=== PATIENT | female | born 1955 | race Caucasian/White ===

== ENCOUNTER 2016-08-01 20:48 | Inpatient (IN) | payer SELFPAY ==
[~2016-08-01] VITALS: Ht 167.6 cm; Wt 68.9 kg
[~2016-08-01 20:48] MED LIST: CELE40TA PO; LAMO25 PO; ONDA4TAB7 PO; TRAZ150T75 PO
[2016-08-02] MEDS ORDERED: diphenhydrAMINE HCL 50 MG/ML VIAL IM PRN (01:00)
[2016-08-02] MEDS ORDERED: MAGNESIUM HYDROXIDE SUSP 30 ML CUP PO PRN (01:00)
[2016-08-02] MEDS: diphenhydrAMINE HCL 50 MG CAP PO PRN ×2 (01:43→10:55)
[2016-08-02] MEDS ORDERED: FLUMAZENIL 0.5 MG/5 ML VIAL IV PUSH PRN (02:45)
[2016-08-02] MEDS ORDERED: LORazepam 2 MG/ML VIAL IV PUSH PRN ×4 (02:45)
[2016-08-02] MEDS ORDERED: HALOPERIDOL LACTATE 5 MG/ML AMP IM PRN (02:45)
[2016-08-02 02:50] VITALS: BP 107/72; PULSE 80; RESP 19; TEMP 97.8; O2SAT 95
[2016-08-02] MEDS: LORazepam 2 MG TAB PO PRN ×3 (06:09→20:25)
[2016-08-02] MEDS ORDERED: NICOTINE 21 MG/24 HR PATCH T-DERMAL SCH (09:00)
[2016-08-02] MEDS: ALUMINUM/MAGNESIUM/SIMETH 30 ML CUP PO PRN ×2 (10:50→18:27)
--- NOTE | 2016-08-02 10:53 | HHI.HP ---
Provisional Diagnosis Admission Date Aug 01, 2016 at 21:10 [place]. Adjustment disorder with mixed disturbance of emotion and conduct Certification of Person's Competence To Provide Express and Informed Consent I have personally examined Anel Carcamo , a person being served at [facility] on, Aug 02, 2016 10:46. Express and informed consent means consent voluntarily given in writing, by a competent person, after sufficient explanation and disclosure of the subject matter involved to enable the person to make a knowing and willful decision without any element of force, fraud, deceit, duress, or other form of constraint or coercion. This person is 18 years of age or older, is not now known to be incompetent to consent to treatment with a guardian advocate, and does not have a health care surrogate or proxy currently making medical treatment decisions. I have found this person to be one of the following: [x] Competent to provide express and informed consent, as defined above, for voluntary admission to this facility and is competent to provide express and informed consent for treatment. He/she has the consistent capacity to make well reasoned, willful, and knowing decisions concerning his or her medical or mental health treatment. The person fully and consistently understands the purpose of the admission for examination/placement and is fully capable of personally exercising all rights assured under [place] Incompetent to provide express and informed consent to voluntary admission, and this is incompetent to provide express and informed consent to treatment. The person must be transferred to involuntary status and a petition for a guardian advocate filed with the Circuit Court. [] Refusing to provide express and informed consent to voluntary admission but is competent to provide express and informed consent for treatment. The person must be discharged or transferred to involuntary status. Form shall be completed within 24 hours of a person's arrival at the receiving facility and filed in the clinical record of each person: 1. Admitted on a voluntary basis 2. Permitted to provide express and informed consent to his/her own treatment 3. Allowed to transfer from involuntary to voluntary status 4. Prior to permitting a person to consent to his or her own treatment after having been previously found incompetent to consent to treatment. History of Present Illness Capacity: Has Capacity HPI Patient lives with her sister. According to the sister the patient is drinking too much alcohol but the patient denies this. Patient does admit to not taking her medicines for the last several months. She would like to go back on her Lamictal and Celexa and trazodone. She describes symptoms of depressed mood, anhedonia, diminished energy, social withdrawal, low self-esteem, feelings of hopelessness, difficulty sleeping and difficulty with her appetite. She has had fleeting thoughts of suicide but currently feels safe and is asking for help. She states her medicine did work in the past and she is willing to go back on it. Review of Systems ROS Limitations: Clinical Condition Except as stated in HPI: all other systems reviewed are Neg Past Psych History Psychological trauma history Denied Violence risk - others (6 mos) Minimal Violence risk - self (6 mos) Minimal Substance Abuse History Drugs/Alcohol past 12 months Reports drinking alcohol several times per week but denies having a problem with consumption or inebriation. Past Family Social History Coded Allergies: No Known Allergies (Unverified , 02/18/16) Per [facility] [phone] & [facility] [phone]. Active Scripts Trazodone 150 Mg [id number] Mg PO HS #30 TAB Ref 0 Prov:Harrison Meyer MD 05/07/16 Ondansetron Odt 4 Mg Tab4 Mg PO Q8HR #90 TAB Ref 0 Prov:Harrison Meyer MD 05/07/16 Lamotrigine (Lamictal)25 Mg Tab50 Mg PO 2 bid #120 TAB Ref 0 Prov:Harrison Meyer MD 05/07/16 Citalopram (Celexa)40 Mg Tab40 Mg PO DAILY #30 TAB Ref 0 Prov:Harrison Meyer MD 05/07/16 Current Medications Medications (Trade) Dose Ordered Sig/Esvin Route Start Time Stop Time Status Last Admin (Benadryl) 50 mg Q6H PRN PO 08/02/16 01:00 08/02/16 01:43 (Benadryl Inj) 50 mg Q6H PRN IM 08/02/16 01:00 (Tylenol) 650 mg Q4H PRN PO 08/02/16 01:00 (Milk Of Magnesia Liq) 30 ml DAILY PRN PO 08/02/16 01:00 (Mag-Al Plus Susp Liq) 30 ml Q6H PRN PO 08/02/16 01:00 (Ativan) 1 mg Q4H PRN PO 08/02/16 02:45 (Ativan Inj) 1 mg Q4H PRN IV PUSH 08/02/16 02:45 (Ativan) 2 mg Q2H PRN PO 08/02/16 02:45 08/02/16 06:09 (Ativan Inj) 2 mg Q2H PRN IV PUSH 08/02/16 02:45 (Ativan Inj) 2 mg Q1H PRN IV PUSH 08/02/16 02:45 (Ativan Inj) 2 mg Q15M PRN IV PUSH 08/02/16 02:45 (Romazicon Inj) 0.2 mg Q1M PRN IV PUSH 08/02/16 02:45 Family History Positive for mood disorder. Social History Lives with her sister in [facility]. Not currently employed. Possibly has an alcohol abuse problem. Not involved in a romantic relationship. Patient's Strengths (min. 2) Verbal and resilient. Physical Exam GENERAL: SKIN: Warm and dry. HEAD: Normocephalic. EYES: No scleral icterus. No injection or drainage. NECK: Supple, trachea midline. No JVD or lymphadenopathy. CARDIOVASCULAR: Regular rate and rhythm without murmurs, gallops, or rubs. RESPIRATORY: Breath sounds equal bilaterally. No accessory muscle use. GASTROINTESTINAL: Abdomen soft, non-tender, nondistended. MUSCULOSKELETAL: No cyanosis, or edema. BACK: Nontender without obvious deformity. No CVA tenderness. Vital Signs Vital Signs Date Time Temp Pulse Resp B/P Pulse Ox O2 Delivery O2 Flow Rate FiO2 08/02/16 02:50 97.8 80 19 107/72 95 Mental Status Examination Speech: Unremarkable Orientation: x3 Memory: Unremarkable Thought Process: Organized, Goal Directed Thought Content: Unremarkable Hallucination Type: None Attention and Concentration: Good Suicidal Ideation: Yes Previous Suicide Attempts: Yes Homicidal Ideation: No Previous Homicide Attempts: No Insight: Fair Judgement: Unrealistic Affect: Anxious Mood: Sad Motor Activity: Normal gait Assessment & Plan Problem List: (1) Adjustment disorder with mixed disturbance of emotions and conduct ICD Code: F43.25 Assessment & Plan Estimated LOS: 3 days n patient to be placed back on medications and titrated up to therapeutic doses in the next 3 days. Arthur Quiroz MD Aug 02, 2016 10:53
[2016-08-02] MEDS: LORazepam 1 MG TAB PO PRN (10:59)
[2016-08-02] MEDS: CITALOPRAM HYDROBROMIDE 20 MG TAB PO SCH (11:00)
[2016-08-02 16:54] VITALS: BP 100/70; PULSE 72; RESP 18; TEMP 98.4; O2SAT 97
[2016-08-02] MEDS: traZODone HCL 100 MG TAB PO SCH (20:25)
[2016-08-02] MEDS: lamoTRIgine 25 MG TAB PO SCH (20:25)
[2016-08-02] MEDS ORDERED: REMOVE OLD NICOTINE PATCH T-DERMAL SCH (21:00)
[2016-08-03 06:29] VITALS: BP 127/73; PULSE 72; RESP 18; TEMP 98; O2SAT 99
[2016-08-03] MEDS: ALUMINUM/MAGNESIUM/SIMETH 30 ML CUP PO PRN (06:30)
[2016-08-03] MEDS: LORazepam 1 MG TAB PO PRN ×2 (06:30→09:37)
--- NOTE | 2016-08-03 09:26 | HHI.PYPN ---
Subjective Remarks Patient continues to report significant depression, nausea and malaise. This physician believes she is still having used to owing off and back on her medication. She needs more time to get used to the medicine before we titrate the dose up. Review of Systems ROS Limitations: Clinical Condition Except as stated in HPI: all other systems reviewed are Neg Objective Alert: Yes [place]: Person, Place, Date, Situation Mood: Calm Affect: Euthymic Memory Intact: Immediate, Recent, Remote Hallucinations: Other Delusions: No Delusion Type: Other Suicidal: Ideation Homicidal: Ideation Insight/Judgement Impaired but adequate. Vitals/IOs Vital Signs Date Time Temp Pulse Resp B/P Pulse Ox O2 Delivery O2 Flow Rate FiO2 08/03/16 06:29 98.0 72 18 127/73 99 Assessment & Plan Problem List: (1) Adjustment disorder with mixed disturbance of emotions and conduct ICD Code: F43.25 Assessment & Plan Estimated LOS: 2 days plan to continue titrating the medications Celexa and Lamictal as she tolerates them. Justification for Cont. Inpt. Continued depression with suicidal ideation. Arthur Quiroz MD Aug 03, 2016 09:25
[2016-08-03] MEDS: lamoTRIgine 25 MG TAB PO SCH ×2 (09:30→21:19)
[2016-08-03] MEDS: CITALOPRAM HYDROBROMIDE 20 MG TAB PO SCH (09:30)
[2016-08-03] MEDS: LORazepam 2 MG TAB PO PRN ×2 (13:09→21:19)
[2016-08-03] MEDS: diphenhydrAMINE HCL 50 MG CAP PO PRN (17:51)
[2016-08-03 17:53] VITALS: BP 108/63; PULSE 69; RESP 18; TEMP 98.2; O2SAT 100
[2016-08-03] MEDS: traZODone HCL 100 MG TAB PO SCH (21:00)
[2016-08-04] MEDS: LORazepam 2 MG TAB PO PRN (05:24)
[2016-08-04] MEDS: ALUMINUM/MAGNESIUM/SIMETH 30 ML CUP PO PRN (05:24)
[2016-08-04 05:54] VITALS: BP 115/78; PULSE 80; RESP 18; TEMP 97.4; O2SAT 98
[2016-08-04] MEDS: lamoTRIgine 25 MG TAB PO SCH ×2 (09:32→20:25)
[2016-08-04] MEDS: CITALOPRAM HYDROBROMIDE 20 MG TAB PO SCH (09:32)
[2016-08-04] MEDS: diphenhydrAMINE HCL 50 MG CAP PO PRN (11:18)
--- NOTE | 2016-08-04 12:30 | HHI.PYPN ---
Subjective Remarks Patient continues to report symptoms of depression with suicidality. She has no place to go, according to reports, which makes her feel more hopeless and helpless and depressed. This physician discussed social work services and placing the patient back on her medications. She is willing to sign voluntarily. Therefore her medicines will be increased to their previous standards. Anticipated discharge is this Tuesday. Review of Systems ROS Limitations: Clinical Condition Except as stated in HPI: all other systems reviewed are Neg Objective Alert: Yes [place]: Person, Place, Date, Situation Mood: Anxious, Calm, Depressed Affect: Restricted Memory Intact: Immediate, Recent, Remote Hallucinations: Other Delusions: No Delusion Type: Other Suicidal: Ideation Homicidal: Ideation Insight/Judgement Impaired but adequate. Vitals/IOs Vital Signs Date Time Temp Pulse Resp B/P Pulse Ox O2 Delivery O2 Flow Rate FiO2 08/04/16 05:54 97.4 80 18 115/78 98 Assessment & Plan Problem List: (1) Adjustment disorder with mixed disturbance of emotions and conduct ICD Code: F43.25 Assessment & Plan Estimated LOS: 2 days patient will now be placed on 50 mg of Lamictal twice a day and the full dose of Celexa. Social work to be involved for placement issues. If patient responds according to medication changes, she will be discharged on Tuesday. Justification for Cont. Inpt. Depressed, suicidal and unable to care for self. Arthur Quiroz MD Aug 04, 2016 12:30
[2016-08-04] MEDS: LORazepam 1 MG TAB PO PRN ×2 (13:15→18:26)
[2016-08-04 16:51] VITALS: BP 118/79; PULSE 73; RESP 18; TEMP 97.7; O2SAT 100
[2016-08-04] MEDS: traZODone HCL 100 MG TAB PO SCH (20:25)
[2016-08-05] MEDS: LORazepam 2 MG TAB PO PRN (02:15)
[2016-08-05 05:26] VITALS: BP 151/86; PULSE 61; RESP 16; TEMP 97.7; O2SAT 96
[2016-08-05] MEDS: lamoTRIgine 25 MG TAB PO SCH ×2 (08:22→20:33)
[2016-08-05] MEDS: CITALOPRAM HYDROBROMIDE 20 MG TAB PO SCH (08:22)
--- NOTE | 2016-08-05 11:01 | HHI.PYPN ---
Subjective Remarks Continues to demonstrate a markedly depressed mood, anhedonia, markedly diminished energy and social withdrawal. Expresses suicidal ideation as well. Review of Systems ROS Limitations: Clinical Condition Except as stated in HPI: all other systems reviewed are Neg Objective Alert: Yes [place]: Person, Place, Date, Situation Mood: Anxious, Depressed Affect: Restricted Memory Intact: Immediate, Recent, Remote Hallucinations: Other Delusions: No Delusion Type: Other Suicidal: Ideation Homicidal: Ideation Insight/Judgement Impaired. Vitals/IOs Vital Signs Date Time Temp Pulse Resp B/P Pulse Ox O2 Delivery O2 Flow Rate FiO2 08/05/16 05:26 97.7 61 16 151/86 96 Intake and Output 08/04/16 08/04/16 08/05/16 08:00 16:00 00:00 Intake Total 360 ml Balance 360 ml Assessment & Plan Problem List: (1) Adjustment disorder with mixed disturbance of emotions and conduct ICD Code: F43.25 Assessment & Plan Estimated LOS: 2 days days patient has not been responding to medication as prescribed. This physician will look to titrate antidepressant therapies upward. Anticipate discharge over the or Tuesday. Justification for Cont. Inpt. Suicidal ideation and unable to care for self. Arthur Quiroz MD Aug 05, 2016 11:01
[2016-08-05] MEDS: diphenhydrAMINE HCL 50 MG CAP PO PRN (11:27)
[2016-08-05] MEDS: traZODone HCL 100 MG TAB PO SCH (20:33)
[2016-08-05 21:43] VITALS: BP 111/76; PULSE 65; RESP 18; TEMP 98; O2SAT 97
[2016-08-06 06:14] VITALS: BP 117/70; PULSE 69; RESP 20; TEMP 97.7; O2SAT 98
[2016-08-06] MEDS: lamoTRIgine 25 MG TAB PO SCH ×2 (08:41→20:30)
[2016-08-06] MEDS: CITALOPRAM HYDROBROMIDE 20 MG TAB PO SCH (08:41)
--- NOTE | 2016-08-06 13:55 | HHI.PYPN ---
Subjective Remarks Patient seen and examined in coverage for Dr. Quiroz. Chart reviewed. Case discussed with nursing staff. On my examination today, patient tells me that she feels like recent medication adjustments are kicking in and her mood is improving. Denies suicidality. No evidence of psychosis. Denies side effects from medications. Review of Systems Except as stated in HPI: all other systems reviewed are Neg Objective Alert: Yes [place]: Person, Place, Date, Situation Mood: Depressed (improving per patient report) Affect: Other (fairly full and reactive) Memory Intact: Comment (intact on clinical exam) Hallucinations: Other (no AVH) Delusions: No Delusion Type: Other (no evident delusions) Suicidal: Ideation (no suicidal ideation) Homicidal: Ideation (no homicidal ideation) Insight/Judgement Fair Remarks No motor abnormalities noted. No signs of any withdrawal noted. Thought process linear. Grooming and hygiene are good. Labs No laboratories on file within our system from this admission. Vitals/IOs Vital Signs Date Time Temp Pulse Resp B/P Pulse Ox O2 Delivery O2 Flow Rate FiO2 08/06/16 06:14 97.7 69 20 117/70 98 Assessment & Plan Problem List: (1) Adjustment disorder with mixed disturbance of emotions and conduct ICD Code: F43.25 Assessment & Plan Continue Lamictal, Celexa and trazodone as ordered. Continue other medications and care as ordered. Continue to monitor on the inpatient unit. Justification for Cont. Inpt. Monitoring for impairments in safety. Discharge Planning Pending psychiatric stabilization. Per Dr. Quiroz. Request HC Surrog/Guard Advoc?: No Miguel Acosta MD Aug 06, 2016 13:55
[2016-08-06] MEDS: LORazepam 1 MG TAB PO PRN (15:26)
[2016-08-06 19:20] VITALS: BP 105/70; PULSE 66; RESP 19; TEMP 97.4; O2SAT 98
[2016-08-06] MEDS: traZODone HCL 100 MG TAB PO SCH (20:30)
[2016-08-06] MEDS: LORazepam 2 MG TAB PO PRN (20:30)
[2016-08-07] MEDS: LORazepam 2 MG TAB PO PRN ×3 (01:03→21:43)
[2016-08-07] MEDS: ALUMINUM/MAGNESIUM/SIMETH 30 ML CUP PO PRN (01:03)
[2016-08-07 06:20] VITALS: BP 122/72; PULSE 74; RESP 17; TEMP 98.3; O2SAT 97
[2016-08-07] MEDS: LORazepam 1 MG TAB PO PRN ×2 (06:23→10:17)
[2016-08-07] MEDS: lamoTRIgine 25 MG TAB PO SCH ×2 (09:33→21:44)
[2016-08-07] MEDS: CITALOPRAM HYDROBROMIDE 20 MG TAB PO SCH (09:33)
[2016-08-07] MEDS: ACETAMINOPHEN 325 MG TAB PO PRN (14:06)
--- NOTE | 2016-08-07 15:13 | HHI.PYPN ---
Subjective Remarks Pt seen and discussed with staff. No SI/HI. Pt has been anxious but remains free from SI/HI. Pt has been having increasing abdominal pain which she rates 10/10. Pt could be heard on other unit crying. Seen and examined with RN Soledad present. Abdomen is tender to palpation in both lower quadrants, with greater tenderness on LLQ. Pt vomited at 1405. NO BM today. Most recent vital signs 168 /83, P 68, R 18, SP02 98%. Consult placed and called directly to [facility]. Review of Systems Gastrointestinal: COMPLAINS OF: Abdominal pain, Vomiting Psychiatric: COMPLAINS OF: Anxiety Objective Alert: Yes [place]: Person, Place, Date, Situation Mood: Depressed (improving per patient report) Affect: Other (fairly full and reactive) Memory Intact: Comment (intact on clinical exam) Hallucinations: Other (no AVH) Delusions: No Delusion Type: Other (no evident delusions) Suicidal: Ideation (no suicidal ideation) Homicidal: Ideation (no homicidal ideation) Insight/Judgement poor Vitals/IOs Vital Signs Date Time Temp Pulse Resp B/P Pulse Ox O2 Delivery O2 Flow Rate FiO2 08/07/16 06:20 98.3 74 17 122/72 97 Assessment & Plan Problem List: (1) Adjustment disorder with mixed disturbance of emotions and conduct ICD Code: F43.25 Assessment & Plan Continue current tx plan. Hospitalist consulted for abdominal pain. Justification for Cont. Inpt. complicating medical condition Request HC Surrog/Guard Advoc?: Chichi Mcintosh MD Aug 07, 2016 15:13
[2016-08-07] MEDS ORDERED: MORPHINE SULFATE 4 MG/ML INJ IM ONE (15:15)
--- NOTE | 2016-08-07 15:36 | RADRPT ---
EXAM DATE/TIME: 08/07/2016 15:06 [facility] COMPARISON: No previous studies available for comparison. INDICATIONS : Abdominal pain in lower left quadrant. MEDICAL HISTORY : None. SURGICAL HISTORY : None. ENCOUNTER: Initial ACUITY: 1 day PAIN SCORE: 10/10 LOCATION: Abdomen FINDINGS: Supine view of the abdomen was performed. The abdominal bowel gas pattern is normal. No abnormal ma sses, calcifications, or organomegaly is seen. The visualized lower lungs are clear. The osseous st ructures are unremarkable. CONCLUSION: Benign abdomen. Cameron Gross MD on August 07, 2016 at 15:33 Board Certified Radiologist. This report was verified electronically.
--- NOTE | 2016-08-07 15:37 | PD.CONS ---
HPI Service [facility] Consult Requested By Dr. Martini Reason for Consult Abdominal pain Primary Care Physician No Primary Care Physician Diagnoses: History of Present Illness This is a 61-year-old female who is currently admitted to the psychiatry floor because of depression. Stat consult was requested because of abdominal pain. Case discussed with patient's psychiatrist. Patient has history of ovarian mass. Patient states she has acute onset of severe sharp left lower quadrant pain without radiation associated with nausea and vomiting 2. She feels her mass has twisted. No fever, UTI symptoms, constipation and diarrhea. History of appendectomy and hysterectomy. Denies abdominal distention. Review of Systems Constitutional: DENIES: Diaphoretic episodes, Fatigue, Fever, Weight gain, Weight loss, Chills, Dizziness, Change in appetite, Night Sweats Endocrine: DENIES: Heat/cold intolerance, Polydipsia, Polyuria, Polyphagia Eyes: DENIES: Blurred vision, Diplopia, Vision loss, Photosensitivity Ears, nose, mouth, throat: DENIES: Tinnitus, Vertigo, Throat pain, Hoarseness, Epistaxis, Odynophagia Respiratory: DENIES: Cough, Wheezing, Hemoptysis, Sputum production, Shortness of breath Cardiovascular: DENIES: Chest pain, Palpitations, Syncope, Dyspnea on Exertion , PND, Lower Extremity Edema, Orthopnea, Claudication Gastrointestinal: COMPLAINS OF: Abdominal pain, DENIES: Black stools, Bloody stools, Constipation, Diarrhea, Nausea, Vomiting, Difficulty Swallowing, Anorexia Genitourinary: DENIES: Urinary frequency, Urinary incontinence, Urgency, Hematuria, Dysuria, Nocturia, Vaginal discharge Integumentary: DENIES: Rash Neurologic: DENIES: Headache, Localized weakness, Seizures, Tremor, Poor Balance Psychiatric: COMPLAINS OF: Depression, DENIES: Anxiety, Confusion, Hallucinations, Agitation, Suicidal Ideation, Homicidal Ideation, Delusions Past Family Social History Allergies: Coded Allergies: No Known Allergies (Unverified , 02/18/16) Per [facility] [phone] & [facility] [phone]. Past Medical History As previously mentioned Past Surgical History As previously mentioned Reported Medications Trazodone 150 Mg Sag084 Mg PO HS #30 TAB Ref 0 Prov:Harrison Meyer MD 05/07/16 Ondansetron Odt 4 Mg Tab4 Mg PO Q8HR #90 TAB Ref 0 Prov:Harrison Meyer MD 05/07/16 Lamotrigine (Lamictal)25 Mg Tab50 Mg PO 2 bid #120 TAB Ref 0 Prov:Harrison Meyer MD 05/07/16 Citalopram (Celexa)40 Mg Tab40 Mg PO DAILY #30 TAB Ref 0 Prov:Harrison Meyer MD 05/07/16 Family History No history of cancer Social History Does not drink. She smokes 3 cigarettes a day Physical Exam Vital Signs Vital Signs Date Time Temp Pulse Resp B/P Pulse Ox O2 Delivery O2 Flow Rate FiO2 08/07/16 06:20 98.3 74 17 122/72 97 08/06/16 19:20 97.4 66 19 105/70 98 Physical Exam GENERAL: This is a well-nourished, well-developed patient, in distress due to pain SKIN: No rashes, ecchymoses or lesions. Cool and dry. HEAD: Atraumatic. Normocephalic. No temporal or scalp tenderness. EYES: Pupils equal round and reactive. Extraocular motions intact. No scleral icterus. No injection or drainage. ENT: Nose without bleeding, purulent drainage or septal hematoma. Throat without erythema, tonsillar hypertrophy or exudate. Uvula midline. Airway patent. NECK: Trachea midline. No JVD or lymphadenopathy. Supple, nontender, no meningeal signs. CARDIOVASCULAR: Regular rate and rhythm without murmurs, gallops, or rubs. RESPIRATORY: Clear to auscultation. Breath sounds equal bilaterally. No wheezes , rales, or rhonchi. GASTROINTESTINAL: Abdomen soft, nondistended. No guarding. Tender left lower quadrant. Left CVA tenderness MUSCULOSKELETAL: Extremities without clubbing, cyanosis, or edema. No joint tenderness, effusion, or edema noted. No calf tenderness. Negative Homans sign bilaterally. NEUROLOGICAL: Awake and alert. Cranial nerves II through XII intact. Motor and sensory grossly within normal limits. Five out of 5 muscle strength in all muscle groups. Normal speech. Assessment and Plan Problem List: (1) Abdominal pain ICD Code: R10.9 Status: Acute (2) Ovarian mass, left ICD Code: N83.9 Status: Chronic (3) Adjustment disorder with mixed disturbance of emotions and conduct ICD Code: F43.25 Status: Acute Assessment and Plan This is a 61-year-old female who is currently admitted to the psychiatry floor because of depression. Stat consult was requested because of abdominal pain. Acute left lower quadrant abdominal pain associated with nausea and vomiting with history of ovarian mass. No fever, UTI symptoms, constipation and diarrhea. History of appendectomy and hysterectomy. Denies abdominal distention. Etiology to be determined. Stat CBC, CMP, urinalysis, KUB and abdominal and pelvic CT. Morphine IM for pain control. Nothing by mouth and start IV fluids DVT prophylaxis with SCD and early ambulation. Discussed Condition With Patient and psychiatry staff Bryan Olivas MD Aug 07, 2016 15:37
[2016-08-07 15:40] LABS: AUTOMATED NEUTROPHIL # 7.8 TH/MM3 (1.8-7.7); BASOPHIL # 0.2 TH/MM3 (0-0.2); BASOPHIL % 1.3 % (0.0-2.0); EOSINOPHIL % 0.2 % (0.0-4.0); HEMATOCRIT 42.4 % (35.0-46.0); HEMO FLAGS DIFF FINAL; LYMPH % 31.2 % (9.0-44.0); LYMPHOCYTE # 4.3 TH/MM3 (1.0-4.8); MEAN CELL VOLUME 98.1 FL (80.0-100.0); MEAN CORPUSCULAR HEMOGLOBIN 32.3 PG (27.0-34.0); MONO % 9.8 % (0.0-8.0); NEUT % 57.5 % (16.0-70.0); PLATELET COUNT 191 TH/MM3 (150-450); RED BLOOD COUNT 4.33 MIL/MM3 (4.00-5.30); RED CELL DISTRIBUTION WIDTH 12.9 % (11.6-17.2); WHITE BLOOD COUNT 13.7 TH/MM3 (4.0-11.0)
[2016-08-07] MEDS ORDERED: DIATRIZOATE MEGLUM/DIATRIZOATE SOD 9 ML CUP PO ONE (16:00)
[2016-08-07 16:10] LABS: ALT (GPT) 15 U/L (10-53); ANION GAP 11 MEQ/L (5-15); AST (GOT) 13 U/L (15-37); BICARBONATE 25.6 MEQ/L (21.0-32.0); BLOOD UREA NITROGEN 20 MG/DL (7-18); CHLORIDE 99 MEQ/L (98-107); GLOMERULAR FILTRATION RATE 68 ML/MIN (>89); MAGNESIUM 2.2 MG/DL (1.5-2.5); POTASSIUM 3.6 MEQ/L (3.5-5.1); SODIUM (NA) 136 MEQ/L (136-145)
[2016-08-07 16:13] LABS: ALKALINE PHOSPHATASE 80 U/L (45-117); TOTAL BILIRUBIN ADULT 0.2 MG/DL (0.2-1.0)
[2016-08-07] MEDS ORDERED: NS + KCL 20 MEQ INJ 1,000 ML IV PRN (16:30)
[2016-08-07] MEDS ORDERED: LACTULOSE SYRUP 20 GM/30 ML CUP PO PRN (16:45)
[2016-08-07] MEDS ORDERED: BISACODYL 10 MG SUPP RECTAL PRN (16:45)
[2016-08-07] MEDS ORDERED: IOHEXOL 350 MG/ML 10 ML VIAL (for RAD DIAG) IV ONE (20:37)
--- NOTE | 2016-08-07 20:45 | RADRPT ---
EXAM DATE/TIME: 08/07/2016 20:28 [facility] COMPARISON: No previous studies available for comparison. INDICATIONS : Right lower quadrant pain. IV CONTRAST: 96 cc Omnipaque 350 (iohexol) IV ORAL CONTRAST: Prescribed oral contrast ingested. RADIATION DOSE: 10.57 CTDIvol (mGy) MEDICAL HISTORY : ulcer and ovarian cyst SURGICAL HISTORY : Appendectomy. section. ENCOUNTER: Initial ACUITY: 1 day PAIN SCALE: 10/10 LOCATION: Right lower quadrant TECHNIQUE: Volumetric scanning of the abdomen and pelvis was performed. Using automated exposure control and ad justment of the mA and/or kV according to patient size, radiation dose was kept as low as reasonably achievable to obtain optimal diagnostic quality images. FINDINGS: LOWER LUNGS: The visualized lower lungs are clear. Small hiatus. LIVER: Homogeneous density without lesion. There is no dilation of the biliary tree. No calcified gallston es. SPLEEN: Normal size without lesion. PANCREAS: Within normal limits. KIDNEYS: Normal in size and shape. There is no mass, stone or hydronephrosis. ADRENAL GLANDS: Within normal limits. VASCULAR: There is no aortic aneurysm. BOWEL/MESENTERY: The stomach, small bowel, and colon demonstrate no acute abnormality. There is no free intraperitone al air or fluid. ABDOMINAL WALL: Within normal limits. RETROPERITONEUM: There is no lymphadenopathy. BLADDER: No wall thickening or mass. REPRODUCTIVE: There is a smooth margin heterogeneous density mass in the left posterior pelvis posterior and to the left of the uterus which measures 5.7 x 5.6 x 3.4 cm. There appears to be several septi within and a central area of enhancing soft tissue which measures up to 1.4 cm. The location suggests that this is left adnexal, probably ovarian in origin. No evidence of free fluid. INGUINAL: There is no lymphadenopathy or hernia. MUSCULOSKELETAL: Within normal limits for patient age. CONCLUSION: Mixed cystic and solid mass in the posterior left adnexa measuring 5.6 cm, probably ovarian arch and. No evidence of deep pelvic adenopathy; no evidence of free fluid. Cameron Gross MD on August 07, 2016 at 20:41 Board Certified Radiologist. This report was verified electronically.
[2016-08-07] MEDS: MORPHINE SULFATE 4 MG/ML INJ IM PRN (21:00)
[2016-08-07 21:29] VITALS: BP 168/83; PULSE 68; RESP 18; TEMP 98.1
[2016-08-07] MEDS: DOCUSATE SODIUM 50 MG/SENNA 8.6 MG TAB PO SCH (21:44)
[2016-08-07] MEDS: traZODone HCL 100 MG TAB PO SCH (21:44)
[2016-08-08] MEDS: MORPHINE SULFATE 4 MG/ML INJ IM PRN (01:34)
[2016-08-08] MEDS: ACETAMINOPHEN 325 MG TAB PO PRN (04:57)
[2016-08-08 06:00] VITALS: BP 99/58; PULSE 80; RESP 18; TEMP 97.4; O2SAT 97
[2016-08-08 07:19] LABS: AUTOMATED NEUTROPHIL # 5.7 TH/MM3 (1.8-7.7); BASOPHIL # 0.1 TH/MM3 (0-0.2); BASOPHIL % 0.6 % (0.0-2.0); EOSINOPHIL % 0.2 % (0.0-4.0); HEMO FLAGS DIFF FINAL; LYMPH % 25.9 % (9.0-44.0); LYMPHOCYTE # 2.4 TH/MM3 (1.0-4.8); MEAN CELL VOLUME 98.4 FL (80.0-100.0); MEAN CORPUSCULAR HEMOGLOBIN 33.4 PG (27.0-34.0); MONO % 11.9 % (0.0-8.0); NEUT % 61.4 % (16.0-70.0); PLATELET COUNT 169 TH/MM3 (150-450); RED BLOOD COUNT 4.06 MIL/MM3 (4.00-5.30); RED CELL DISTRIBUTION WIDTH 13.1 % (11.6-17.2); WHITE BLOOD COUNT 9.4 TH/MM3 (4.0-11.0)
[2016-08-08 07:42] LABS: MAGNESIUM 2.8 MG/DL (1.5-2.5)
[2016-08-08] MEDS ORDERED: ONDANSETRON ODT 4 MG TAB PO PRN (09:00)
[2016-08-08] MEDS: DOCUSATE SODIUM 50 MG/SENNA 8.6 MG TAB PO SCH ×2 (09:17→21:38)
[2016-08-08] MEDS: lamoTRIgine 25 MG TAB PO SCH ×2 (09:18→21:39)
[2016-08-08] MEDS: CITALOPRAM HYDROBROMIDE 20 MG TAB PO SCH (09:18)
[2016-08-08] MEDS: POLYETHYLENE GLYCOL 17 GM PKG PO SCH (09:18)
[2016-08-08] MEDS: ACETAMINOPHEN/HYDROcodone 325 MG/5 MG TAB PO PRN ×3 (11:56→22:25)
--- NOTE | 2016-08-08 15:05 | HHI.PR ---
Subjective Remarks Follow-up abdominal pain. Improved abdominal pain. Known history of left ovarian mass to see [employer] oncology Dr. Galvan on August 13. Counseled regarding narcotics I will provide pain management for the next 2 days. Discussed with RN Objective Vitals Vital Signs Date Time Temp Pulse Resp B/P Pulse Ox O2 Delivery O2 Flow Rate FiO2 08/08/16 06:00 97.4 80 18 99/58 97 08/07/16 21:29 98.1 68 18 168/83 Result Diagram: 08/08/16 0633 08/08/16 0633 Imaging Last Impressions Abdomen/Pelvis CT 08/07/16 0000 Signed Impressions: Service Date/Time: Sunday, August 07, 2016 20:28 - CONCLUSION: Mixed cystic and solid mass in the posterior left adnexa measuring 5.6 cm, probably ovarian arch and. No evidence of deep pelvic adenopathy; no evidence of free fluid. Cameron Gross MD Abdomen X-Ray 08/07/16 0000 Signed Impressions: Service Date/Time: Sunday, August 07, 2016 15:06 - CONCLUSION: Benign abdomen. Cameron Gross MD Objective Remarks GENERAL: This is a well-nourished, well-developed patient, in no distress SKIN: No rashes, ecchymoses or lesions. Cool and dry. HEAD: Atraumatic. Normocephalic. No temporal or scalp tenderness. EYES: Pupils equal round and reactive. Extraocular motions intact. No scleral icterus. No injection or drainage. ENT: Nose without bleeding, purulent drainage or septal hematoma. Throat without erythema, tonsillar hypertrophy or exudate. Uvula midline. Airway patent. NECK: Trachea midline. No JVD or lymphadenopathy. Supple, nontender, no meningeal signs. CARDIOVASCULAR: Regular rate and rhythm without murmurs, gallops, or rubs. RESPIRATORY: Clear to auscultation. Breath sounds equal bilaterally. No wheezes , rales, or rhonchi. GASTROINTESTINAL: Abdomen soft, nondistended. No guarding. Tender left lower quadrant. Left CVA tenderness MUSCULOSKELETAL: Extremities without clubbing, cyanosis, or edema. No joint tenderness, effusion, or edema noted. No calf tenderness. Negative Homans sign bilaterally. NEUROLOGICAL: Awake and alert. Cranial nerves II through XII intact. Motor and sensory grossly within normal limits. Five out of 5 muscle strength in all muscle groups. Normal speech. A/P Problem List: (1) Abdominal pain ICD Code: R10.9 Status: Acute (2) Ovarian mass, left ICD Code: N83.9 Status: Chronic (3) Adjustment disorder with mixed disturbance of emotions and conduct ICD Code: F43.25 Status: Acute Assessment and Plan This is a 61-year-old female who is currently admitted to the psychiatry floor because of depression. Stat consult was requested because of abdominal pain. Acute left lower quadrant abdominal pain associated with nausea and vomiting with history of ovarian mass as seen on CT. No fever, UTI symptoms, constipation and diarrhea. History of appendectomy and hysterectomy. Denies abdominal distention. Improved. Advance diet, start Lortab and continue Morphine IM for breakthrough pain. DVT prophylaxis with SCD and early ambulation. Discharge Planning The patient continues to be stable, we'll sign off tomorrow Bryan Olivas MD Aug 08, 2016 15:05
[2016-08-08 17:45] VITALS: BP 100/64; PULSE 84; RESP 18; TEMP 97; O2SAT 98
--- NOTE | 2016-08-08 19:21 | HHI.PYPN ---
Subjective Remarks Pt seen and discussed with staff. Pt reports mood is much improved and she denies SI/HI. She is tolerating medications without side effects. She has been resting in room for most of the day. She reports some mild anxiety but reports that overall she is doing well. No SI/HI Objective Alert: Yes [place]: Person, Place, Date, Situation Mood: Calm Affect: Restricted Memory Intact: Comment (intact on clinical exam) Hallucinations: Other (no AVH) Delusions: No Delusion Type: Other (no evident delusions) Suicidal: Ideation (no suicidal ideation) Homicidal: Ideation (no homicidal ideation) Insight/Judgement fair Labs Test 08/08/16 06:33 White Blood Count 9.4 TH/MM3 Red Blood Count 4.06 MIL/MM3 Hemoglobin 13.6 GM/DL Hematocrit 40.0 % Mean Corpuscular Volume 98.4 FL Mean Corpuscular Hemoglobin 33.4 PG Mean Corpuscular Hemoglobin 34.0 % Concent Red Cell Distribution Width 13.1 % Platelet Count 169 TH/MM3 Mean Platelet Volume 9.8 FL Neutrophils (%) (Auto) 61.4 % Lymphocytes (%) (Auto) 25.9 % Monocytes (%) (Auto) 11.9 % Eosinophils (%) (Auto) 0.2 % Basophils (%) (Auto) 0.6 % Neutrophils # (Auto) 5.7 TH/MM3 Lymphocytes # (Auto) 2.4 TH/MM3 Monocytes # (Auto) 1.1 TH/MM3 Eosinophils # (Auto) 0.0 TH/MM3 Basophils # (Auto) 0.1 TH/MM3 CBC Comment DIFF FINAL Differential Comment Sodium Level 138 MEQ/L Potassium Level 4.0 MEQ/L Chloride Level 102 MEQ/L Carbon Dioxide Level 29.0 MEQ/L Anion Gap 7 MEQ/L Blood Urea Nitrogen 11 MG/DL Creatinine 0.73 MG/DL Estimat Glomerular Filtration 81 ML/MIN Rate Random Glucose 93 MG/DL Calcium Level 9.2 MG/DL Magnesium Level 2.8 MG/DL Vitals/IOs Vital Signs Date Time Temp Pulse Resp B/P Pulse Ox O2 Delivery O2 Flow Rate FiO2 08/08/16 17:45 97.0 84 18 100/64 98 Assessment & Plan Problem List: (1) Adjustment disorder with mixed disturbance of emotions and conduct ICD Code: F43.25 Assessment & Plan Pt improving. Continue current tx plan. Estimated LOS: days Justification for Cont. Inpt. complicating medical condition Request HC Surrog/Guard Advoc?: No Chichi Martini MD Aug 08, 2016 19:21
[2016-08-08] MEDS: traZODone HCL 100 MG TAB PO SCH (21:39)
[2016-08-08] MEDS: LORazepam 2 MG TAB PO PRN (21:39)
[2016-08-08] MEDS: ALUMINUM/MAGNESIUM/SIMETH 30 ML CUP PO PRN (21:39)
[2016-08-09] MEDS: ACETAMINOPHEN/HYDROcodone 325 MG/5 MG TAB PO PRN ×4 (04:19→17:18)
[2016-08-09 06:05] VITALS: BP 98/60; PULSE 65; RESP 17; TEMP 97.5; O2SAT 93
[2016-08-09] MEDS: lamoTRIgine 25 MG TAB PO SCH (08:57)
[2016-08-09] MEDS: POLYETHYLENE GLYCOL 17 GM PKG PO SCH (08:57)
[2016-08-09] MEDS: CITALOPRAM HYDROBROMIDE 20 MG TAB PO SCH (08:57)
[2016-08-09] MEDS: DOCUSATE SODIUM 50 MG/SENNA 8.6 MG TAB PO SCH (08:58)
--- NOTE | 2016-08-09 14:43 | HHI.DS ---
Psychiatry Discharge Summary Inpatient Psychiatric care?: Yes Advance Directive: Yes Mental Health AdvanceDirective: No Health Care Proxy: [place] and Admission Admission Date Aug 01, 2016 at 21:10 Admission Diagnosis: (1) Adjustment disorder with mixed disturbance of emotions and conduct ICD Code: F43.25 Brief History Patient lives with her sister. According to the sister the patient is drinking too much alcohol but the patient denies this. Patient does admit to not taking her medicines for the last several months. She would like to go back on her Lamictal and Celexa and trazodone. She describes symptoms of depressed mood, anhedonia, diminished energy, social withdrawal, low self-esteem, feelings of hopelessness, difficulty sleeping and difficulty with her appetite. She has had fleeting thoughts of suicide but currently feels safe and is asking for help. She states her medicine did work in the past and she is willing to go back on it. Tobacco Use In Past 30 Days: 4 or Less Cigarettes/Day Alcohol Use: 2-4 Times Per Month Hospital Course The patient participated actively in individual and group therapies. No procedures were performed. She was started back on her psychotropic medications. At the time of discharge she was calm and pleasant and cooperative with no suicidal or homicidal ideation, plan or intention. Her cognition was intact and there was no evidence of psychotic thinking. Results Blood Pressure 98 / 60 Vital Signs Date Time Temp Pulse Resp B/P Pulse Ox O2 Delivery O2 Flow Rate FiO2 08/09/16 06:05 97.5 65 17 98/60 93 Laboratory Tests Test 08/07/16 08/08/16 15:21 06:33 White Blood Count 13.7 TH/MM3 (4.0-11.0) Monocytes (%) (Auto) 9.8 % (0.0-8.0) 11.9 % (0.0-8.0) Neutrophils # (Auto) 7.8 TH/MM3 (1.8-7.7) Monocytes # (Auto) 1.3 TH/MM3 1.1 TH/MM3 (0-0.9) (0-0.9) Blood Urea Nitrogen 20 MG/DL (7-18) Estimat Glomerular Filtration 68 ML/MIN (>89) 81 ML/MIN (>89) Rate Aspartate Amino Transf 13 U/L (15-37) (AST/SGOT) Magnesium Level 2.8 MG/DL (1.5-2.5) Summary of Procedures None Imaging Last Impressions Abdomen/Pelvis CT 08/07/16 0000 Signed Impressions: Service Date/Time: Sunday, August 07, 2016 20:28 - CONCLUSION: Mixed cystic and solid mass in the posterior left adnexa measuring 5.6 cm, probably ovarian arch and. No evidence of deep pelvic adenopathy; no evidence of free fluid. Cameron Gross MD Abdomen X-Ray 08/07/16 0000 Signed Impressions: Service Date/Time: Sunday, August 07, 2016 15:06 - CONCLUSION: Benign abdomen. Cameron Gross MD Pending results at discharge: No Medications # of Antipsychotic meds at D/C: 1 Appropriate >1 Antipsych meds?: 1 Approp Antipsych med options 1 - Minimum of three failed multiple trials of monotherapy. 2 - Documented plan to taper to monotherapy due to previous use of multiple meds OR cross-taper in progress at D/C. 3 - Documentation of augmentation of Clozapine. 4 - Justification other than those listed in allowable values 1-3, document here : Discharge Discharge Date: Aug 09, 2016 Discharge Diagnosis: (1) Adjustment disorder with mixed disturbance of emotions and conduct ICD Code: F43.25 Mental Status Exam at Disch At the time of discharge the patient had no suicidal or homicidal ideation, plan or intention. She showed no evidence of psychotic thinking and her cognition was completely intact. She was calm and pleasant and cooperative with adequate insight and judgment. She was verbally verónica for safety as well. Pt Condition on Discharge: Stable Discharge Disposition: Discharge Home Discharge Instructions Diet Instructions: As Tolerated, No Restrictions Activities you can perform: Regular-No Restrictions Scheduled Appointment: Leonardo Kenney Appointment Date: Aug 12, 2016 Appointment Time: 07:30 am Discharge Time <= 30 minutes Discharge/Advance Care Plan Health Problems: (1) Adjustment disorder with mixed disturbance of emotions and conduct Goals to promote your health * To prevent worsening of your condition and complications * To maintain your health at the optimal level Directions to meet your goals Take your medications as prescribed Follow your dietary instruction Follow activity as directed Keep your appointments as scheduled Take your immunizations and boosters as scheduled If your symptoms worsen call your PCP, if no PCP go to Urgent Care Center or Emergency Room For 29/11 questions related to your inpatient stay or results of tests pending at discharge, please contact Dr. Arthur Quiroz at Smoking is Dangerous to Your Health. Avoid second hand smoking Arthur Quiroz MD Aug 09, 2016 14:43
[2016-08-09] MEDS ORDERED: TRAZ50TA12 PO (14:46)
[2016-08-09] MEDS ORDERED: POLY17S PO (14:46)
[2016-08-09] MEDS ORDERED: LAMO25 PO (14:46)
[2016-08-09] MEDS ORDERED: CELE20TA PO (14:46)
[2016-08-09 17:49] VITALS: BP 89/49; PULSE 67; RESP 17; TEMP 96.8; O2SAT 95
== END 2016-08-09 18:50 | disposition home or self-care (01) | DRG 882 ==
LOC: H260 21:10
PROVIDERS: ADMIT Psychiatry & Neurology Psychiatry; ATTEND Psychiatry & Neurology Psychiatry
DX: F43.25 Adjustment disorder with mixed disturbance of emotions and conduct (principal); R45.851 Suicidal ideations; F32.9 Major depressive disorder, single episode, unspecified; F41.8 Other specified anxiety disorders; F17.210 Nicotine dependence, cigarettes, uncomplicated; N83.9 Noninflammatory disorder of ovary, fallopian tube and broad ligament, unspecified; Z90.49 Acquired absence of other specified parts of digestive tract
CPT/HCPCS: 74000; 74177; 80048; 80053; 83735; 85025; J2270; Q0163; Q9963; Q9967

== ENCOUNTER 2016-08-16 13:35 | Emergency (ER) | payer OTHER ==
[~2016-08-16] VITALS: Ht 167.6 cm; Wt 67.0 kg
[~2016-08-16 13:35] MED LIST changes: +CELE20TA PO; +POLY17S PO; +TRAZ50TA12 PO
[2016-08-16 13:37] VITALS: BP 155/60; PULSE 94; RESP 24; TEMP 98.3; O2SAT 98
[2016-08-16 13:55] VITALS: RESP 19
[2016-08-16] MEDS ORDERED: LAMO25 PO ×2 (14:43)
[2016-08-16] MEDS ORDERED: CLON1 PO (14:43)
[2016-08-16] MEDS ORDERED: VIST25CA PO (14:43)
--- NOTE | 2016-08-16 14:56 | PD ---
HPI Chief Complaint: Abdominal Pain Time Seen by Provider: 14:22 Travel History International Travel<30 days: No Contact w/Intl Traveler<30days: No Traveled to known affect area: No History of Present Illness HPI 61-year-old female here with complaint of pelvic pain. Patient states she has a history of a left ovarian cyst, was supposed to see [facility] oncology but never did. Today her pain in the left pelvis has increased, now sharp. Waxes and wanes. Patient per chart review was recently hospitalized with inpatient psychiatry and did have a flare of her symptoms during that time. She was seen by medicine and had a CT of the abdomen and pelvis with a mixed cystic and solid 5.37 m left ovarian cyst. She was given outpatient follow-up with [facility] [facility] oncology, scheduled to be seen 3 days ago but never went. Stated that when she called, she was told that a clinic that she did not have an appointment with them. She denies any vaginal bleeding, discharge, UTI symptoms. PFSH Past Medical History Autoimmune Disease: No Anxiety: Yes Depression: Yes Cardiovascular Problems: No Chemotherapy: No Diabetes: No Endocrine: No Genitourinary: No Headaches: No Immune Disorder: No Musculoskeletal: No Neurologic: No Psychiatric: Yes (Yes- Bipolar) Reproductive: No Respiratory: No Radiation Therapy: No Seizures: No Thyroid Disease: No Ulcer: Yes (2 stomach ulcers) Tetanus Vaccination: < 5 Years Influenza Vaccination: Yes ?: Not Past Surgical History AICD: No Appendectomy: Yes Arteriovenous Shunt: No Gynecologic Surgery: Yes (cyst on ovaries, X2) Insulin Pump: No Joint Replacement: No Oral Surgery: Yes (beginning to start with dentures) Pacemaker: No Social History Alcohol Use: No Tobacco Use: Yes (4-5 CIGARRETTES PER DAY) Substance Use: Yes (marijuana, cocaine, LSD, no longer) Allergies-Medications (Allergen,Severity, Reaction): Coded Allergies: No Known Allergies (Unverified , 08/16/16) Per [facility] [phone] & [facility] [phone]. Reported Meds & Prescriptions Reported Meds & Active Scripts Active Trazodone (Trazodone HCl) 50 Mg Tab 100 Mg PO HS Polyethylene Glycol 3350 Powder (Polyethylene Glycol) 17 Gm Pow 17 Gm PO DAILY Ondansetron Odt 4 Mg Tab 4 Mg PO Q8HR Celexa (Citalopram Hydrobromide) 40 Mg Tab 40 Mg PO DAILY Reported Vistaril (Hydroxyzine Pamoate) 25 Mg Cap 50 Mg PO BID PRN Klonopin (Clonazepam) 1 Mg Tab 1 Mg PO TID Lamictal (Lamotrigine) 25 Mg Tab 75 Mg PO HS Lamictal (Lamotrigine) 25 Mg Tab 75 Mg PO DAILY Review of Systems Except as stated in HPI: all other systems reviewed are Neg Physical Exam Narrative GENERAL: Well-appearing female in no acute distress SKIN: Focused skin assessment warm/dry. HEAD: Normocephalic. EYES: No scleral icterus. No injection or drainage. ENT: Mucous membranes pink and moist. NECK: Supple CARDIOVASCULAR: Regular rate and rhythm. RESPIRATORY: No accessory muscle use. GASTROINTESTINAL: Abdomen soft, left lower quadrant/pelvic pain without rebound or guarding MUSCULOSKELETAL: Normal gait NEUROLOGICAL: Awake and alert. normal speech. PSYCHIATRIC: Appropriate mood and affect; insight and judgment normal. Data Data Last Documented VS Vital Signs Date Time Temp Pulse Resp B/P Pulse Ox O2 Delivery O2 Flow Rate FiO2 08/16/16 13:55 19 08/16/16 13:37 98.3 94 155/60 98 Orders Us Pelvis Comp Business Executive/Non-Preg (08/16/16 ) Ibuprofen (Motrin) (08/16/16 15:00) Morphine Inj (Morphine Inj) (08/16/16 16:00) MDM Medical Decision Making Medical Screen Exam Complete: Yes Emergency Medical Condition: Yes Medical Record Reviewed: Yes Differential Diagnosis 61-year-old female here with left-sided pelvic pain. Differential includes ovarian cyst, acute on chronic pain, ovarian mass, brain cancer, ovarian torsion. Concern for drug-seeking behavior. Narrative Course Patient placed on monitor. She was given Motrin for pain. I looked her up on the prescription drug monitoring program and in the last year in the state of [place] patient has been to 7 different physicians ranging from Rohit Dixon [place], [place], [place] and [facility] for narcotics. Patient refuses pelvic ultrasound until she was given something stronger for pain. Given 4 mg IM morphine. Pelvic ultrasound showed cysts but no evidence of torsion. Patient reassured and encouraged to follow up with [facility] [employer] [facility] [employer] oncology. Diagnosis Primary Impression: Ovarian mass, left Referrals: Elizabeth Graham MD call for appointment Additional Instructions: Tylenol, ibuprofen, Aleve as needed for pain. Follow-up with [facility] [facility] [employer] oncologist as discussed. Med/Other Pt SpecificInfo: No Change to Meds Disposition: 01 DISCHARGE HOME Condition: Stable Camelia Prince MD Aug 16, 2016 14:56
[2016-08-16] MEDS ORDERED: IBUPROFEN 800 MG TAB PO ONE (15:00)
[2016-08-16] MEDS ORDERED: MORPHINE SULFATE 4 MG/ML INJ IM ONE (16:00)
[2016-08-16] MEDS ORDERED: MOTR200T4 PO (16:50)
--- NOTE | 2016-08-16 17:45 | RADRPT ---
EXAM DATE/TIME: 08/16/2016 15:44 [facility] COMPARISON: CT ABDOMEN & PELVIS W CONTRAST, August 07, 2016, 20:28. INDICATIONS : Left pelvic pain. MEDICAL HISTORY : Stomach ulcers. Cyst on ovaries. PTSD. SURGICAL HISTORY : Appendectomy. section. Dentures. Corrective eye surgery. Cyst from ovary removal. ENCOUNTER: Initial ACUITY: 1 day PAIN SCORE: 0/10 LOCATION: Left pelvis MEASUREMENTS: UTERUS: 6.3 x 5.2 x 3.1 cm ENDOMETRIAL STRIPE: 4 mm RIGHT OVARY: 2.2 x 1.6 x 1.5 cm LEFT OVARY: 4.8 x 4.2 x 3.4 cm FINDINGS: UTERUS: The myometrium has homogeneous echotexture without mass. RIGHT OVARY: Ovary contains no mass or significant cystic lesion. LEFT OVARY: There is a complex cystic mass of the left ovary again seen with 3.2 and 2.6 cm cystic components and no definite internal blood flow within the echogenic portion. Normal blood flow to ovary. MISCELLANE OUS: No free fluid. CONCLUSION: 1. As noted previously a complex cystic mass of the left ovary is identified. Emeterio Parham MD on August 16, 2016 at 17:42 Board Certified Radiologist. This report was verified electronically.
== END 2016-08-16 17:54 | disposition home or self-care (01) ==
LOC: NEPD 13:35
DX: N83.9 Noninflammatory disorder of ovary, fallopian tube and broad ligament, unspecified (principal); F17.210 Nicotine dependence, cigarettes, uncomplicated
CPT/HCPCS: 76856; 96372; 99284; J2270

== ENCOUNTER 2016-08-20 15:50 | Emergency (ER) | payer SELFPAY ==
[~2016-08-20] VITALS: Ht 167.6 cm; Wt 67.2 kg
[~2016-08-20 15:50] MED LIST changes: -CELE20TA PO; +CLON1 PO; +MOTR200T4 PO; -TRAZ150T75 PO; +VIST25CA PO
[2016-08-20 15:52] VITALS: BP 106/55; PULSE 65; RESP 24; TEMP 97.3; O2SAT 99
--- NOTE | 2016-08-20 16:25 | PD ---
Physical Exam Date Seen by Provider: Aug 20, 2016 Time Seen by Provider: 16:22 Narrative 61 year old female presents to the emergency department for psychiatric evaluation. She states she is going to have a nervous breakdown. She states she "feels like screaming". Patient states she has thoughts of hurting herself , but no plan. She reports history of bipolar disorder and states she is taking her medication. She states she is living at a [facility] center and "cannot live there anymore". Vital signs reviewed. Patient awaiting bed placement. Data Data Last Documented VS Vital Signs Date Time Temp Pulse Resp B/P Pulse Ox O2 Delivery O2 Flow Rate FiO2 08/20/16 15:52 97.3 65 24 106/55 99 Room Air [facility] Supervised Visit with ANGELIA: Erica Brock Aug 20, 2016 16:25
[2016-08-20 18:26] VITALS: BP 124/60; PULSE 65; RESP 18; TEMP 98.1; O2SAT 98
[2016-08-20] MEDS ORDERED: TYLE325T PO (18:31)
--- NOTE | 2016-08-20 21:52 | PD ---
HPI Chief Complaint: Psychiatric Symptoms Time Seen by Provider: 21:50 Travel History International Travel<30 days: No Contact w/Intl Traveler<30days: No Traveled to known affect area: No History of Present Illness HPI 61-year-old female with a history of bipolar disorder presents to the emergency department complaining of worsening depression over the last several days. States that she is having suicidal ideations. Denies any attempts to harm herself. Denies any ingestion of substances in an attempt to harm herself. Denies any alcohol or drug use. Denies any medical complaints. Denies any chest pain, shortness of breath, nausea, vomiting, abdominal pain, diarrhea, lightheadedness, dizziness. No other complaints. PFSH Past Medical History Autoimmune Disease: No Anxiety: Yes Depression: Yes Cardiovascular Problems: No Chemotherapy: No Diabetes: No Patient Takes Glucophage: No Endocrine: No Genitourinary: No Headaches: No Immune Disorder: No Musculoskeletal: No Neurologic: No Psychiatric: Yes (Yes- Bipolar) Reproductive: No Respiratory: No Radiation Therapy: No Seizures: No Thyroid Disease: No Ulcer: Yes (2 stomach ulcers) ?: Not Menopausal: Yes : 2 Para: 2 Miscarriage: 0 : 0 Tubal Ligation: Yes Past Surgical History AICD: No Appendectomy: Yes Arteriovenous Shunt: No Section: Yes (2x C-sections) Gynecologic Surgery: Yes (cyst on ovaries, X2) Insulin Pump: No Joint Replacement: No Oral Surgery: Yes (beginning to start with dentures) Pacemaker: No Social History Alcohol Use: No Tobacco Use: Yes (4-5 CIGARETTES PER DAY) Substance Use: Yes (HX OF marijuana, cocaine, LSD, no longer) Allergies-Medications (Allergen,Severity, Reaction): Coded Allergies: No Known Allergies (Unverified , 08/20/16) Per [facility] [phone] & [facility] [phone]. Reported Meds & Prescriptions Reported Meds & Active Scripts Active Motrin Ib (Ibuprofen) 200 Mg Tab 800 Mg PO TID PRN Trazodone (Trazodone HCl) 50 Mg Tab 100 Mg PO HS Polyethylene Glycol 3350 Powder (Polyethylene Glycol) 17 Gm Pow 17 Gm PO DAILY Celexa (Citalopram Hydrobromide) 40 Mg Tab 40 Mg PO DAILY Reported Tylenol (Acetaminophen) 325 Mg Tab 325 Mg PO ONCE Vistaril (Hydroxyzine Pamoate) 25 Mg Cap 50 Mg PO BID PRN Klonopin (Clonazepam) 1 Mg Tab 1 Mg PO TID Lamictal (Lamotrigine) 25 Mg Tab 75 Mg PO HS Lamictal (Lamotrigine) 25 Mg Tab 75 Mg PO DAILY Review of Systems Except as stated in HPI: all other systems reviewed are Neg Physical Exam Narrative GENERAL: Well-nourished and well-developed pleasant female patient in no acute distress who is nontoxic appearing. SKIN: Warm and dry. HEAD: Normocephalic and atraumatic. EYES: No injection, drainage, or hyphema noted. PERRLA. EOMI. ENT: No nasal drainage noted. Oropharynx is clear. NECK: Supple and the trachea is midline. CARDIOVASCULAR: Regular rate and rhythm. RESPIRATORY: Breath sounds are equal bilaterally with no accessory muscle use, wheezing, rhonchi, or crackles. GASTROINTESTINAL: Abdomen is soft, non-tender, and nondistended. MUSCULOSKELETAL: No obvious deformities, swelling, cyanosis, or ecchymosis is present throughout the upper and lower extremities. Patient has full range of motion without any signs of neurovascular compromise. NEUROLOGICAL: Awake, alert, and oriented. Normal speech and gait. Cranial nerves are grossly intact. Data Data Last Documented VS Vital Signs Date Time Temp Pulse Resp B/P Pulse Ox O2 Delivery O2 Flow Rate FiO2 08/20/16 18:26 98.1 65 18 124/60 98 Room Air Orders Diet Regular Basic (08/20/16 Dinner) Psych Screen (08/20/16 18:27) MDM Medical Decision Making Medical Screen Exam Complete: Yes Emergency Medical Condition: Yes Differential Diagnosis Differential: Depression versus adjustment reaction versus anxiety versus PTSD versus psychosis NOS versus mood disorder NOS versus substance induced mood disorder versus ODD versus adjustment reaction versus schizophrenia versus bipolar disorder versus schizoaffective Narrative Course Patient presents voluntarily for psychiatric evaluation. Physical examination and vital signs are essentially unremarkable. Patient has no medical complaints to report. Psych screen has been ordered. The patient had lab work 2 weeks ago that was unremarkable and has no medical complaints, normal vital signs. I don't see any indication to perform lab work at this time. The patient is medically cleared for psychiatric evaluation and disposition. Diagnosis Primary Impression: Depression Qualified Code: F32.9 - Depression, unspecified depression type Ritika Landrum Aug 20, 2016 21:52
[2016-08-20 22:27] VITALS: BP 113/48; PULSE 61; RESP 18; O2SAT 97
[2016-08-21 02:38] VITALS: BP 121/59; PULSE 52; RESP 18; O2SAT 99
[2016-08-21 06:29] VITALS: BP 132/75; PULSE 66; RESP 18; O2SAT 98
[2016-08-21 07:30] VITALS: BP 113/58; PULSE 88; RESP 18; TEMP 97.6; O2SAT 99
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
== END 2016-08-21 12:17 ==
LOC: NEPJ 15:50
DX: F31.9 Bipolar disorder, unspecified (principal); F17.210 Nicotine dependence, cigarettes, uncomplicated
CPT/HCPCS: 99284

== ENCOUNTER 2016-11-10 20:56 | Inpatient (IN) | payer OTHER ==
[~2016-11-10] VITALS: Ht 167.6 cm; Wt 67.3 kg
[~2016-11-10 20:56] MED LIST changes: -ONDA4TAB7 PO; +TYLE325T PO
[2016-11-10 22:05] VITALS: BP 132/82; PULSE 94; RESP 18; TEMP 98.5; O2SAT 96
[2016-11-10] MEDS ORDERED: LORazepam 2 MG/ML VIAL IM PRN (22:15)
[2016-11-10] MEDS ORDERED: diphenhydrAMINE HCL 50 MG/ML VIAL - HS PRN IM (22:15)
[2016-11-11] MEDS: LORazepam 1 MG TAB PO PRN ×2 (00:02→08:52)
[2016-11-11 05:50] VITALS: BP 115/68; PULSE 72; RESP 17; TEMP 97.4
[2016-11-11] MEDS: MAGNESIUM HYDROXIDE SUSP 30 ML CUP PO PRN (08:52)
[2016-11-11] MEDS: NICOTINE 21 MG/24 HR PATCH T-DERMAL SCH (09:00)
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
[2016-11-11] MEDS ORDERED: ACETAMINOPHEN 325 MG TAB PO PRN (14:00)
[2016-11-11] MEDS ORDERED: MAGNESIUM HYDROXIDE SUSP 30 ML CUP PO PRN (14:00)
[2016-11-11] MEDS ORDERED: ALUMINUM/MAGNESIUM/SIMETH 30 ML CUP PO PRN (14:00)
[2016-11-11] MEDS ORDERED: diphenhydrAMINE HCL 50 MG CAP PO PRN (14:00)
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
[2016-11-11] MEDS: ACETAMINOPHEN 325 MG TAB PO PRN (15:19)
[2016-11-11 15:58] VITALS: BP 112/69; PULSE 67; RESP 18; TEMP 97.1; O2SAT 98
[2016-11-11] MEDS: CITALOPRAM HYDROBROMIDE 40 MG TAB PO SCH (16:00)
[2016-11-11] MEDS ORDERED: ACETAMINOPHEN 325 MG TAB PO ONE (16:00)
[2016-11-11] MEDS: lamoTRIgine 25 MG TAB PO SCH ×2 (16:00→22:15)
[2016-11-11 16:12] LABS: AUTOMATED NEUTROPHIL # 7.6 TH/MM3 (1.8-7.7); BASOPHIL % 0.4 % (0.0-2.0); EOSINOPHIL # 0.1 TH/MM3 (0-0.4); EOSINOPHIL % 0.5 % (0.0-4.0); HEMATOCRIT 43.6 % (35.0-46.0); HEMO FLAGS DIFF FINAL; LYMPH % 22.3 % (9.0-44.0); LYMPHOCYTE # 2.5 TH/MM3 (1.0-4.8); MEAN CELL VOLUME 97.5 FL (80.0-100.0); MEAN CORPUSCULAR HEMOGLOBIN 31.6 PG (27.0-34.0); MEAN CORPUSCULAR HGB CONC 32.5 % (32.0-36.0); MONO % 7.9 % (0.0-8.0); NEUT % 68.9 % (16.0-70.0); PLATELET COUNT 187 TH/MM3 (150-450); RED BLOOD COUNT 4.47 MIL/MM3 (4.00-5.30); RED CELL DISTRIBUTION WIDTH 13.1 % (11.6-17.2)
[2016-11-11 16:27] LABS: ALT (GPT) 31 U/L (10-53); ANION GAP 5 MEQ/L (5-15); AST (GOT) 22 U/L (15-37); BICARBONATE 33.2 MEQ/L (21.0-32.0); BLOOD UREA NITROGEN 20 MG/DL (7-18); CHLORIDE 100 MEQ/L (98-107); GLOMERULAR FILTRATION RATE 75 ML/MIN (>89); SODIUM (NA) 138 MEQ/L (136-145)
[2016-11-11 16:29] LABS: ALKALINE PHOSPHATASE 107 U/L (45-117); TOTAL BILIRUBIN ADULT 0.3 MG/DL (0.2-1.0)
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
[2016-11-11] MEDS: REMOVE OLD NICOTINE PATCH T-DERMAL SCH (21:00)
[2016-11-11 21:31] LABS: BLOOD, URINE NEG (NEG); COMMENT (UR) CULT NOT INDICATED; CULTURE IF INDICATED CULT NOT INDICATED; GLUCOSE,URINE NEG (NEG); KETONE, URINE NEG (NEG); NITRITE,URINE NEG (NEG); URINE COLOR LIGHT-YELLOW (YELLW/STRAW)
[2016-11-11] MEDS: ALUMINUM/MAGNESIUM/SIMETH 30 ML CUP PO PRN (22:14)
[2016-11-11] MEDS: traZODone HCL 50 MG TAB PO SCH (22:15)
[2016-11-12 06:42] VITALS: BP 149/72; PULSE 74; RESP 18; TEMP 98.1; O2SAT 95
[2016-11-12] MEDS: CITALOPRAM HYDROBROMIDE 40 MG TAB PO SCH (08:25)
[2016-11-12] MEDS: POLYETHYLENE GLYCOL 17 GM PKG PO SCH (08:26)
[2016-11-12] MEDS: lamoTRIgine 25 MG TAB PO SCH ×2 (08:26→21:44)
[2016-11-12] MEDS: NICOTINE 21 MG/24 HR PATCH T-DERMAL SCH (08:30)
[2016-11-12] MEDS ORDERED: POLYETHYLENE GLYCOL 17 GM PKG PO SCH (09:00)
[2016-11-12 11:46] LABS: BICARBONATE 29.9 MEQ/L (21.0-32.0); POTASSIUM 4.2 MEQ/L (3.5-5.1)
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
--- NOTE | 2016-11-12 14:12 | HHI.PYPN ---
Subjective Remarks Patient seen in her room nurse Denis, chart reviewed, patient compliant medication. She continues sad and withdrawn there affect is somewhat improved. States she has talked her family up in [place]. She is somewhat apprehensive about possible placement issues. I did discuss the possibility of an CARE HOME. For now continue treatment no change Review of Systems Except as stated in HPI: all other systems reviewed are Neg Objective Alert: Yes [place]: Person, Place, Date, Situation Mood: Calm, Depressed Affect: Restricted Memory Intact: Comment (poor) Hallucinations: Other (denies) Delusions: No Delusion Type: Other (denies) Suicidal: Intent, Ideation (to new suicidal) Homicidal: Ideation (denies) Insight/Judgment Poor Labs Test 11/11/16 11/11/16 11/12/16 15:38 19:58 10:40 White Blood Count 11.0 TH/MM3 Red Blood Count 4.47 MIL/MM3 Hemoglobin 14.2 GM/DL Hematocrit 43.6 % Mean Corpuscular Volume 97.5 FL Mean Corpuscular Hemoglobin 31.6 PG Mean Corpuscular Hemoglobin 32.5 % Concent Red Cell Distribution Width 13.1 % Platelet Count 187 TH/MM3 Mean Platelet Volume 10.3 FL Neutrophils (%) (Auto) 68.9 % Lymphocytes (%) (Auto) 22.3 % Monocytes (%) (Auto) 7.9 % Eosinophils (%) (Auto) 0.5 % Basophils (%) (Auto) 0.4 % Neutrophils # (Auto) 7.6 TH/MM3 Lymphocytes # (Auto) 2.5 TH/MM3 Monocytes # (Auto) 0.9 TH/MM3 Eosinophils # (Auto) 0.1 TH/MM3 Basophils # (Auto) 0.0 TH/MM3 CBC Comment DIFF FINAL Differential Comment Sodium Level 138 MEQ/L 138 MEQ/L Potassium Level 4.0 MEQ/L 4.2 MEQ/L Chloride Level 100 MEQ/L 101 MEQ/L Carbon Dioxide Level 33.2 MEQ/L 29.9 MEQ/L Anion Gap 5 MEQ/L 7 MEQ/L Blood Urea Nitrogen 20 MG/DL 18 MG/DL Creatinine 0.78 MG/DL 0.74 MG/DL Estimat Glomerular Filtration 75 ML/MIN 80 ML/MIN Rate Random Glucose 101 MG/DL 90 MG/DL Serum Osmolality 299 MOSM/KG Calcium Level 9.4 MG/DL 9.6 MG/DL Total Bilirubin 0.3 MG/DL Aspartate Amino Transf 22 U/L (AST/SGOT) Alanine Aminotransferase 31 U/L (ALT/SGPT) Alkaline Phosphatase 107 U/L Total Protein 7.6 GM/DL Albumin 3.9 GM/DL Urine Color LIGHT-YELLOW Urine Turbidity CLEAR Urine pH 6.0 Urine Specific [place] 1.009 Urine Protein NEG mg/dL Urine Glucose (UA) NEG mg/dL Urine Ketones NEG mg/dL Urine Occult Blood NEG Urine Nitrite NEG Urine Bilirubin NEG Urine Urobilinogen LESS THAN 2.0 MG/DL Urine Leukocyte Esterase NEG Urine RBC LESS THAN 1 /hpf Urine WBC LESS THAN 1 /hpf Microscopic Urinalysis Comment CULT NOT INDICATED Thyroid Stimulating Hormone 0.738 uIU/ML 3rd Gen Vitals/IOs Vital Signs Date Time Temp Pulse Resp B/P Pulse Ox O2 Delivery O2 Flow Rate FiO2 11/12/16 06:42 98.1 74 18 149/72 95 Intake and Output 11/11/16 11/11/16 11/12/16 08:00 16:00 00:00 Intake Total 0 ml 240 ml Balance 0 ml 240 ml Assessment & Plan Problem List: (1) Adjustment disorder with mixed disturbance of emotions and conduct ICD Code: F43.25 Assessment & Plan Estimated LOS: days patient continues depressed somewhat suicidal, will compliant medications. At times somewhat more reactive with me Justification for Cont. Inpt. At this time patient decompensate the placed in a lower level of care Discharge Planning To be determined Request HC Surrog/Guard Advoc?: No Harrison Meyer MD Nov 12, 2016 14:12
--- NOTE | 2016-11-12 14:14 | HHI.PR ---
Subjective Remarks Follow up on patient with suicide attempt by ingestion of isopropyl alcohol. Patient seen and examined today. Patient doing well. She has no new medical complaints. Objective Vitals Vital Signs Date Time Temp Pulse Resp B/P Pulse Ox O2 Delivery O2 Flow Rate FiO2 11/12/16 06:42 98.1 74 18 149/72 95 11/11/16 15:58 97.1 67 18 112/69 98 I/O 11/11/16 11/11/16 11/11/16 11/12/16 11/12/16 11/12/16 07:00 15:00 23:00 07:00 15:00 23:00 Intake Total 0 ml 240 ml 240 ml Balance 0 ml 240 ml 240 ml Intake Oral 0 ml 240 ml 240 ml Result Diagram: 11/11/16 1538 11/12/16 1040 Objective Remarks GENERAL: This is a well-nourished, well-developed patient, in no apparent distress. Awake and alert. Sitting in day room. SKIN: (+) Small cut dorsal surface of her digital right hand (patient reports she cut her hand 2 days ago while cutting strawberries). Cool and dry. HEENT: Atraumatic. Normocephalic. EOMI. MMM. NECK: Trachea midline. Supple. CARDIOVASCULAR: Regular rate and rhythm without murmurs, gallops, or rubs. RESPIRATORY: Clear to auscultation. Breath sounds equal bilaterally. No wheezes , rales, or rhonchi. GASTROINTESTINAL: Abdomen soft, nondistended. Tenderness to palpation elicited over left lower quadrant. No hepato-splenomegaly, or palpable masses. No guarding. MUSCULOSKELETAL: Extremities without clubbing, cyanosis, or edema. NEUROLOGICAL: Awake and alert. Able to move all extremities. Normal speech. Medications and IVs Current Medications Medications (Trade) Dose Ordered Sig/Esvin Route Start Time Stop Time Status Last Admin (Benadryl) 50 mg HS PRN PO 11/10/16 22:15 (Benadryl Inj) 50 mg HS PRN IM 11/10/16 22:15 (Tylenol) 650 mg Q4H PRN PO 11/10/16 22:15 11/11/16 15:19 (Milk Of Magnesia Liq) 30 ml DAILY PRN PO 11/10/16 22:15 11/11/16 08:52 (Mag-Al Plus Susp Liq) 30 ml Q6H PRN PO 11/10/16 22:15 11/11/16 22:14 (Habitrol 21 Mg Patch.24 Hr) 1 patch DAILY T-DERMAL 11/11/16 09:00 Miscellaneous Information 1 HS T-DERMAL 11/11/16 21:00 (Miralax) 17 gm DAILY PO 11/12/16 09:00 11/12/16 08:26 (Atarax) 50 mg Q6H PRN PO 11/11/16 14:00 (CeleXA) 40 mg DAILY PO 11/11/16 16:00 11/12/16 08:25 (LaMICtal) 75 mg DAILY PO 11/11/16 16:00 11/12/16 08:26 (LaMICtal) 75 mg HS PO 11/11/16 21:00 11/11/16 22:15 (Desyrel) 100 mg HS PO 11/11/16 21:00 11/11/16 22:15 A/P Assessment and Plan 61-year-old female with a past medical history of bipolar disorder who is admitted to the psychiatric unit under Holliday act following a suicide attempt when she drank a large bottle of isopropyl alcohol over the course of 2 days this past Tuesday and Tuesday. Hospitalist services were consulted for medical management. Bipolar disorder Depression Suicidal ideation with attempt - Management per psychiatric team Isopropyl alcohol ingestion - Now been 6 days since patient ingested - VSS. Patient is awake and alert. - acceptable serum osmolar gap - UA unremarkable Left sided adnexal mass with chronic pain - Tylenol when necessary pain - Patient sees oncologist Dr. Jolley in [place] but has not been seen recently due to loss of insurance - Will consult case management to assist with scheduling of outpatient oncology appointment Discussed with patient and Kiley Valentine Nov 12, 2016 14:14
[2016-11-12] MEDS ORDERED: ESCITALOPRAM OXALATE 10 MG TAB PO SCH (14:15)
[2016-11-12] MEDS: hydrOXYzine HCL 50 MG TAB PO PRN (16:01)
[2016-11-12 17:33] VITALS: BP 108/57; PULSE 78; RESP 18; TEMP 98.6; O2SAT 98
[2016-11-12] MEDS: REMOVE OLD NICOTINE PATCH T-DERMAL SCH (21:00)
[2016-11-12] MEDS: traZODone HCL 50 MG TAB PO SCH (21:44)
[2016-11-13] MEDS: hydrOXYzine HCL 50 MG TAB PO PRN ×2 (06:38→16:51)
[2016-11-13 06:50] VITALS: BP 113/59; PULSE 64; RESP 16; TEMP 98; O2SAT 97
[2016-11-13] MEDS: NICOTINE 21 MG/24 HR PATCH T-DERMAL SCH (09:00)
[2016-11-13] MEDS: CITALOPRAM HYDROBROMIDE 40 MG TAB PO SCH (09:05)
[2016-11-13] MEDS: lamoTRIgine 25 MG TAB PO SCH ×2 (09:05→21:07)
[2016-11-13] MEDS: POLYETHYLENE GLYCOL 17 GM PKG PO SCH (09:06)
--- NOTE | 2016-11-13 15:30 | HHI.PYPN ---
Subjective Remarks Pt reports that mood feels more stable and calm today but reports continued SI. "I've been trying to think of how to change my circumstances but that seems like an option when I leave here." No HI. No medication side effects. Objective Alert: Yes [place]: Person, Place, Date, Situation Mood: Calm, Depressed Affect: Restricted Memory Intact: Comment (fair) Hallucinations: Other (denies) Delusions: No Delusion Type: Other (denies) Suicidal: Ideation ( ) Homicidal: Ideation (denies) Insight/Judgment poor Vitals/IOs Vital Signs Date Time Temp Pulse Resp B/P Pulse Ox O2 Delivery O2 Flow Rate FiO2 11/13/16 06:50 98.0 64 16 113/59 97 Intake and Output 11/12/16 11/12/16 11/13/16 08:00 16:00 00:00 Intake Total 240 ml 240 ml Balance 240 ml 240 ml Assessment & Plan Problem List: (1) Adjustment disorder with mixed disturbance of emotions and conduct ICD Code: F43.25 Assessment & Plan Continue current tx plan. Estimated LOS: days Justification for Cont. Inpt. impairments in safety Request HC Surrog/Guard Advoc?: No Chichi Martini MD Nov 13, 2016 15:30
[2016-11-13 18:00] VITALS: BP 137/66; PULSE 70; RESP 16; TEMP 98; O2SAT 97
[2016-11-13] MEDS: REMOVE OLD NICOTINE PATCH T-DERMAL SCH (21:00)
[2016-11-13] MEDS: traZODone HCL 50 MG TAB PO SCH (21:06)
[2016-11-14] MEDS: NICOTINE 21 MG/24 HR PATCH T-DERMAL SCH (09:00)
[2016-11-14] MEDS: CITALOPRAM HYDROBROMIDE 40 MG TAB PO SCH (09:00)
[2016-11-14] MEDS: lamoTRIgine 25 MG TAB PO SCH ×3 (09:20→21:48)
[2016-11-14] MEDS: POLYETHYLENE GLYCOL 17 GM PKG PO SCH (09:21)
[2016-11-14] MEDS: hydrOXYzine HCL 50 MG TAB PO PRN (12:19)
[2016-11-14] MEDS: MAGNESIUM HYDROXIDE SUSP 30 ML CUP PO PRN (13:10)
--- NOTE | 2016-11-14 15:35 | HHI.PYPN ---
Subjective Remarks Pt seen and discussed with staff. She remains depressed and hopeless with prominent negative symptoms. She reports that she has been trying to think positive and not allow herself to think about suicide today. No SI/HI Objective Alert: Yes [place]: Person, Place, Date, Situation Mood: Depressed Affect: Restricted Memory Intact: Comment (fair) Hallucinations: Other (denies) Delusions: No Delusion Type: Other (denies) Suicidal: Ideation ( ) Homicidal: Ideation (denies) Insight/Judgment limited Vitals/IOs Vital Signs Date Time Temp Pulse Resp B/P Pulse Ox O2 Delivery O2 Flow Rate FiO2 11/13/16 18:00 98.0 70 16 137/66 97 Assessment & Plan Problem List: (1) Adjustment disorder with mixed disturbance of emotions and conduct ICD Code: F43.25 Assessment & Plan Will continue current tx plan. Estimated LOS: days Justification for Cont. Inpt. impairments in safety Request HC Surrog/Guard Advoc?: No Chichi Martini MD Nov 14, 2016 15:35
[2016-11-14 17:14] VITALS: BP 105/66; PULSE 66; RESP 18; TEMP 96.9; O2SAT 99
[2016-11-14] MEDS: REMOVE OLD NICOTINE PATCH T-DERMAL SCH (21:00)
[2016-11-14] MEDS: traZODone HCL 50 MG TAB PO SCH (21:49)
[2016-11-15] MEDS: CITALOPRAM HYDROBROMIDE 40 MG TAB PO SCH (08:57)
[2016-11-15] MEDS: POLYETHYLENE GLYCOL 17 GM PKG PO SCH (08:57)
[2016-11-15] MEDS: NICOTINE 21 MG/24 HR PATCH T-DERMAL SCH (09:00)
[2016-11-15] MEDS: lamoTRIgine 25 MG TAB PO SCH ×2 (09:03→21:21)
[2016-11-15] MEDS: MAGNESIUM HYDROXIDE SUSP 30 ML CUP PO PRN (10:18)
--- NOTE | 2016-11-15 11:17 | PD.TTN ---
Present for Treatment Team Treatment Team Staff: Provider (Dr. Meyer), Psych Therapist (Rosa Maria), Occupational Therapist (Mary) Patient Problems 1. Discharge planning 2. Medication compliance 3. Knowledge deficit 4. Lack of coping skills Progress Toward Goals Provider Input: Patient has been compliant with medications and has had no behavioral issues on the unit. Only complaint is patient's BM but otherwise appropriate on unit. Psych Therapist Input: Patient has been appropriate and is oriented x3. patient has no behavioral issues. Patient is encouraged to create realistic goals and priortizing her needs. Patient is able to verbalize her needs. Occupational Therapist Input: Patient is selective to attending groups but is appropriate when she does. Rosa Maria Reynaga [facility] Nov 15, 2016 11:17
--- NOTE | 2016-11-15 12:56 | HHI.PYPN ---
Subjective Remarks Discussed with treatment team Patient seen in [place] with nurse Barrios, chart review , patient compliant medications. Patient feels her mood has remained depressed that she feels somewhat stalled. Did not sleep well last night. States the best results her with Lamictal and about 300 mg daily but at that level she developed a severe rash. However once she lower the dose to the present level of the rash disappeared. We also discussed alternative medications. She stated she did do fairly well also on Abilify. We will add Abilify 5 mg in the a.m. to the existing regimen and observe patient's behavior and mood Review of Systems Except as stated in HPI: all other systems reviewed are Neg Objective Alert: Yes [place]: Person, Place, Date, Situation Mood: Depressed Affect: Restricted Memory Intact: Comment (fair) Hallucinations: Other (denies) Delusions: No Delusion Type: Other (denies) Suicidal: Ideation ( ) Homicidal: Ideation (denies) Insight/Judgment Poor Vitals/IOs Vital Signs Date Time Temp Pulse Resp B/P Pulse Ox O2 Delivery O2 Flow Rate FiO2 11/14/16 17:14 96.9 66 18 105/66 99 Assessment & Plan Problem List: (1) Adjustment disorder with mixed disturbance of emotions and conduct ICD Code: F43.25 Assessment & Plan Estimated LOS: days patient continues depressed with somewhat decreased range intense or affect. We'll add Abilify 5 mg a.m. to the regimen Justification for Cont. Inpt. At this time patient will decompensate if placed in a lower level of care Discharge Planning To be determined Request HC Surrog/Guard Advoc?: No Harrison Meyer MD Nov 15, 2016 12:56
[2016-11-15 17:08] VITALS: BP 116/58; PULSE 68; RESP 18; TEMP 98.1; O2SAT 97
[2016-11-15] MEDS: hydrOXYzine HCL 50 MG TAB PO PRN (17:44)
[2016-11-15] MEDS: REMOVE OLD NICOTINE PATCH T-DERMAL SCH (21:00)
[2016-11-15] MEDS: traZODone HCL 50 MG TAB PO SCH (21:21)
[2016-11-16 06:08] VITALS: BP 130/74; PULSE 60; RESP 16; TEMP 97.8; O2SAT 96
[2016-11-16] MEDS: NICOTINE 21 MG/24 HR PATCH T-DERMAL SCH (09:00)
[2016-11-16] MEDS: POLYETHYLENE GLYCOL 17 GM PKG PO SCH (09:21)
[2016-11-16] MEDS: ARIPiprazole 5 MG TAB PO SCH (09:21)
[2016-11-16] MEDS: CITALOPRAM HYDROBROMIDE 40 MG TAB PO SCH (09:21)
--- NOTE | 2016-11-16 13:15 | HHI.PYPN ---
Subjective Remarks Patient seen in [place] with nurse Barrios, chart review, patient compliant medications. Patient calm pleasant denies suicidality as this time. Also denies voices at this time. Patient scheduled for [address] [facility] in 2 days. At this time feel patient has the capacity to sign voluntary I will lift Holliday act allow her to sign voluntary Review of Systems Except as stated in HPI: all other systems reviewed are Neg Objective Alert: Yes [place]: Person, Place, Date, Situation Mood: Depressed Affect: Restricted Memory Intact: Comment (fair) Hallucinations: Other (denies) Delusions: No Delusion Type: Other (denies) Suicidal: Ideation ( ) Homicidal: Ideation (denies) Insight/Judgment Poor Vitals/IOs Vital Signs Date Time Temp Pulse Resp B/P Pulse Ox O2 Delivery O2 Flow Rate FiO2 11/16/16 06:08 97.8 60 16 130/74 96 Assessment & Plan Problem List: (1) Adjustment disorder with mixed disturbance of emotions and conduct ICD Code: F43.25 Assessment & Plan Estimated LOS: days patient continues depressed though somewhat more reactive, now somewhat vacillating relating to suicidality Justification for Cont. Inpt. At this time patient will decompensate then placed in a lower level of care Discharge Planning To be determined Request HC Surrog/Guard Advoc?: No Harrison Meyer MD Nov 16, 2016 13:15
[2016-11-16] MEDS: hydrOXYzine HCL 50 MG TAB PO PRN (14:55)
[2016-11-16 15:33] VITALS: BP 105/54; PULSE 70; RESP 18; TEMP 98.6; O2SAT 95
[2016-11-16] MEDS: REMOVE OLD NICOTINE PATCH T-DERMAL SCH (21:00)
[2016-11-16] MEDS: lamoTRIgine 25 MG TAB PO SCH (21:33)
[2016-11-16] MEDS: traZODone HCL 50 MG TAB PO SCH (21:34)
[2016-11-17 06:09] VITALS: BP 125/59; PULSE 66; RESP 19; TEMP 97.7; O2SAT 94
[2016-11-17] MEDS: POLYETHYLENE GLYCOL 17 GM PKG PO SCH (08:35)
[2016-11-17] MEDS: NICOTINE 21 MG/24 HR PATCH T-DERMAL SCH (08:35)
[2016-11-17] MEDS: ARIPiprazole 5 MG TAB PO SCH (08:35)
[2016-11-17] MEDS: lamoTRIgine 25 MG TAB PO SCH ×2 (08:35→20:22)
[2016-11-17] MEDS: CITALOPRAM HYDROBROMIDE 40 MG TAB PO SCH (08:35)
--- NOTE | 2016-11-17 12:58 | HHI.PYPN ---
Subjective Remarks Seen in [facility] floor staff, patient excited about the possibility of being placed in a small alf through [facility]. States that will be a bed available on Sunday 11/19 will 0.4/for discharge Review of Systems Except as stated in HPI: all other systems reviewed are Neg Objective Alert: Yes [place]: Person, Place, Date, Situation Mood: Depressed Affect: Restricted Memory Intact: Comment (fair) Hallucinations: Other (denies) Delusions: No Delusion Type: Other (denies) Suicidal: Ideation ( ) Homicidal: Ideation (denies) Insight/Judgment Poor to fair Vitals/IOs Vital Signs Date Time Temp Pulse Resp B/P Pulse Ox O2 Delivery O2 Flow Rate FiO2 11/17/16 06:09 97.7 66 19 125/59 94 Assessment & Plan Problem List: (1) Adjustment disorder with mixed disturbance of emotions and conduct ICD Code: F43.25 Assessment & Plan Estimated LOS: days patient calm showing some improvement in her mood with better affect better eye contact. She now appears to be processing well the placement that is potentially available in 2 days Justification for Cont. Inpt. Patient decompensate if not placed an appropriate level of care Discharge Planning To be determined Request HC Surrog/Guard Advoc?: No Harrison Meyer MD Nov 17, 2016 12:58
[2016-11-17] MEDS: hydrOXYzine HCL 50 MG TAB PO PRN (17:52)
[2016-11-17 18:13] VITALS: BP 129/62; PULSE 71; RESP 16; TEMP 98.4; O2SAT 98
[2016-11-17] MEDS: traZODone HCL 50 MG TAB PO SCH (20:21)
[2016-11-17] MEDS: diphenhydrAMINE HCL 50 MG CAP - HS PRN PO (20:22)
[2016-11-18] MEDS: diphenhydrAMINE HCL 50 MG CAP - HS PRN PO (03:46)
[2016-11-18 05:28] VITALS: BP 132/63; PULSE 71; RESP 18; TEMP 97.8; O2SAT 94
[2016-11-18] MEDS: POLYETHYLENE GLYCOL 17 GM PKG PO SCH (08:45)
[2016-11-18] MEDS: CITALOPRAM HYDROBROMIDE 40 MG TAB PO SCH (08:45)
[2016-11-18] MEDS: ARIPiprazole 5 MG TAB PO SCH (08:45)
[2016-11-18] MEDS: lamoTRIgine 25 MG TAB PO SCH ×2 (08:45→21:26)
[2016-11-18] MEDS: hydrOXYzine HCL 50 MG TAB PO PRN (08:49)
--- NOTE | 2016-11-18 11:55 | HHI.PYPN ---
Subjective Remarks Patient seen in [place] with nurse Wilmer, patient overall calm cooperative and pleasant sad about placement soon. Patient states she showing a small rash develop in both arms very fine small flat small red spots rash on her arms not swollen and not pruritic. She feels this may be similar to the issue she had prior on lamotrigine. For now will decrease the dose from 75 mg twice a day to 50 mg twice a day and evaluate tomorrow Review of Systems Except as stated in HPI: all other systems reviewed are Neg Objective Alert: Yes [place]: Person, Place, Date, Situation Mood: Depressed Affect: Restricted Memory Intact: Comment (fair) Hallucinations: Other (denies) Delusions: No Delusion Type: Other (denies) Suicidal: Ideation ( ) Homicidal: Ideation (denies) Insight/Judgment Poor Vitals/IOs Vital Signs Date Time Temp Pulse Resp B/P Pulse Ox O2 Delivery O2 Flow Rate FiO2 11/18/16 05:28 97.8 71 18 132/63 94 Assessment & Plan Problem List: (1) Adjustment disorder with mixed disturbance of emotions and conduct ICD Code: F43.25 Assessment & Plan Estimated LOS: days patient mood is stabilizing denying suicidality homicidality voices or visions. Patient information his small rash on her arms amenities similar to her prior rash on a higher dose of lamotrigine. We will decrease the morphine to 50 mg twice a day and assess again tomorrow Justification for Cont. Inpt. At this time patient may decompensate if not placed an appropriate level of care Discharge Planning To be determined Request HC Surrog/Guard Advoc?: No Harrison Meyer MD Nov 18, 2016 11:55
[2016-11-18] MEDS: MAGNESIUM HYDROXIDE SUSP 30 ML CUP PO PRN (14:30)
[2016-11-18] MEDS: ALUMINUM/MAGNESIUM/SIMETH 30 ML CUP PO PRN (15:00)
[2016-11-18 18:00] VITALS: BP 95/55; PULSE 69; RESP 17; TEMP 97.3; O2SAT 99
[2016-11-18] MEDS: traZODone HCL 50 MG TAB PO SCH (21:26)
[2016-11-19 05:39] VITALS: BP 110/59; PULSE 70; RESP 16; TEMP 98; O2SAT 98
[2016-11-19] MEDS: CITALOPRAM HYDROBROMIDE 40 MG TAB PO SCH (08:36)
[2016-11-19] MEDS: ARIPiprazole 5 MG TAB PO SCH (08:36)
[2016-11-19] MEDS: POLYETHYLENE GLYCOL 17 GM PKG PO SCH (08:37)
[2016-11-19] MEDS ORDERED: lamoTRIgine 25 MG TAB PO SCH (09:00)
[2016-11-19] MEDS ORDERED: POLY17S PO (09:33)
[2016-11-19] MEDS ORDERED: ARIP1TAB11 PO (09:33)
[2016-11-19] MEDS ORDERED: LAMO25 PO (09:33)
[2016-11-19] MEDS ORDERED: CELE40TA PO (09:33)
[2016-11-19] MEDS ORDERED: TRAZ50TA12 PO (09:33)
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
[2016-11-19] MEDS: hydrOXYzine HCL 50 MG TAB PO PRN (13:00)
[2016-11-19] MEDS: ACETAMINOPHEN 325 MG TAB PO PRN (13:00)
== END 2016-11-19 13:35 | disposition home or self-care (01) | DRG 882 ==
LOC: H260 22:00
PROVIDERS: ADMIT Psychiatry & Neurology Psychiatry; ATTEND Psychiatry & Neurology Psychiatry
DX: F43.25 Adjustment disorder with mixed disturbance of emotions and conduct (principal); R45.851 Suicidal ideations; R21 Rash and other nonspecific skin eruption; N83.9 Noninflammatory disorder of ovary, fallopian tube and broad ligament, unspecified; F31.9 Bipolar disorder, unspecified; Z59.0 Homelessness; Z87.891 Personal history of nicotine dependence; Z81.8 Family history of other mental and behavioral disorders
CPT/HCPCS: 80048; 80053; 81001; 83930; 84443; 85025; Q0163

== ENCOUNTER 2017-04-12 13:39 | Inpatient (IN) | payer OTHER ==
[~2017-04-12] VITALS: Ht 165.1 cm; Wt 72.2 kg
[~2017-04-12 13:39] MED LIST changes: +ARIP1TAB11 PO; -CLON1 PO
[2017-04-12] MEDS ORDERED: ALUMINUM/MAGNESIUM/SIMETH 30 ML CUP PO PRN (20:15)
[2017-04-12] MEDS ORDERED: LORazepam 2 MG/ML VIAL IM PRN ×2 (20:15)
[2017-04-12] MEDS ORDERED: ACETAMINOPHEN 325 MG TAB PO PRN (20:15)
[2017-04-12] MEDS ORDERED: LORazepam 0.5 MG TAB PO PRN (20:15)
[2017-04-12 20:39] VITALS: BP 122/70; PULSE 83; RESP 18; TEMP 98
[2017-04-12] MEDS: LORazepam 1 MG TAB PO PRN (21:59)
[2017-04-13 05:40] VITALS: BP 136/69; PULSE 74; RESP 17; TEMP 97; O2SAT 96
[2017-04-13 08:15] LABS: AUTOMATED NEUTROPHIL # 5.6 TH/MM3 (1.8-7.7); BASOPHIL # 0.1 TH/MM3 (0-0.2); BASOPHIL % 1.1 % (0.0-2.0); EOSINOPHIL # 0.1 TH/MM3 (0-0.4); EOSINOPHIL % 0.9 % (0.0-4.0); HEMATOCRIT 41.9 % (35.0-46.0); HEMO FLAGS DIFF FINAL; LYMPHOCYTE # 2.3 TH/MM3 (1.0-4.8); MEAN CELL VOLUME 98.9 FL (80.0-100.0); MEAN CORPUSCULAR HEMOGLOBIN 32.7 PG (27.0-34.0); MEAN CORPUSCULAR HGB CONC 33.1 % (32.0-36.0); MONO % 8.9 % (0.0-8.0); NEUT % 63.1 % (16.0-70.0); PLATELET COUNT 235 TH/MM3 (150-450); RED BLOOD COUNT 4.24 MIL/MM3 (4.00-5.30); RED CELL DISTRIBUTION WIDTH 13.6 % (11.6-17.2); WHITE BLOOD COUNT 8.8 TH/MM3 (4.0-11.0)
[2017-04-13 08:38] LABS: ANION GAP 5 MEQ/L (5-15); BICARBONATE 29.7 MEQ/L (21.0-32.0); BLOOD UREA NITROGEN 17 MG/DL (7-18); CHLORIDE 104 MEQ/L (98-107); GLOMERULAR FILTRATION RATE 73 ML/MIN (>89); POTASSIUM 4.4 MEQ/L (3.5-5.1); SODIUM (NA) 139 MEQ/L (136-145)
[2017-04-13 08:48] LABS: HDL CHOLESTEROL 62.7 MG/DL (40.0-60.0); LDL CHOLESTEROL 71 MG/DL (0-99)
[2017-04-13] MEDS: NICOTINE 21 MG/24 HR PATCH T-DERMAL SCH (09:00)
[2017-04-13] MEDS: REMOVE OLD PATCH T-DERMAL SCH (09:00)
[2017-04-13] MEDS: LORazepam 1 MG TAB PO PRN (09:33)
--- NOTE | 2017-04-13 11:44 | HHI.HP ---
Provisional Diagnosis Admission Date Apr 12, 2017 at 19:34 [place] I. Bipolar disorder most recent episode mixed moderate f 31.62 Certification of Person's Competence To Provide Express and Informed Consent I have personally examined Anel Carcamo , a person being served at [facility] on, Apr 13, 2017 11:19. Express and informed consent means consent voluntarily given in writing, by a competent person, after sufficient explanation and disclosure of the subject matter involved to enable the person to make a knowing and willful decision without any element of force, fraud, deceit, duress, or other form of constraint or coercion. This person is 18 years of age or older, is not now known to be incompetent to consent to treatment with a guardian advocate, and does not have a health care surrogate or proxy currently making medical treatment decisions. I have found this person to be one of the following: [] Competent to provide express and informed consent, as defined above, for voluntary admission to this facility and is competent to provide express and informed consent for treatment. He/she has the consistent capacity to make well reasoned, willful, and knowing decisions concerning his or her medical or mental health treatment. The person fully and consistently understands the purpose of the admission for examination/placement and is fully capable of personally exercising all rights assured [place] [] Incompetent to provide express and informed consent to voluntary admission, and this is incompetent to provide express and informed consent to treatment. The person must be transferred to involuntary status and a petition for a guardian advocate filed with the Circuit Court. [xxx] Refusing to provide express and informed consent to voluntary admission but is competent to provide express and informed consent for treatment. The person must be discharged or transferred to involuntary status. Form shall be completed within 24 hours of a person's arrival at the receiving facility and filed in the clinical record of each person: 1. Admitted on a voluntary basis 2. Permitted to provide express and informed consent to his/her own treatment 3. Allowed to transfer from involuntary to voluntary status 4. Prior to permitting a person to consent to his or her own treatment after having been previously found incompetent to consent to treatment. History of Present Illness Capacity: Lacks Capacity (patient lacks capacity to sign from vision, has capacity to sign for medications) Psych Chief Complaint: depressed suicidal HPI Patient is a 61-year-old white female known to me from prior hospitalizations here comes here under [place] act signed by a glen green dated 04/11/17 at 11:52 AM at [facility]. That document reviewed essentially states patient reported to me and nurse that if she does not get help she will jump in front of a bus to "end it all". Patient initially went to their facility complaining of chest pain epigastric pain. She was medically cleared at that facility then making the statements as mentioned above. Leading to the [place] act and chest with this facility. Of interest eye care for the patient 11/10/16 through 11/19/16 under visit [phone] she is discharged on Lamictal 50 mg twice a day to the [facility] and follow-up through [facility]. It appears patient has been at [facility] since then though she complains of it having "bedbugs" and should be "torn down". She states she is seen by a family practice type physician there. That the staff there does not allow her to see psychiatrist so she has not followed up through [facility]. At the present time patient laying quietly in her bed nurse Brea present throughout session. Patient is labile irritable somewhat hysterical focusing on her somatic issues. Similar to behaviors that she exhibited with the prior admission. She is somewhat passive and manipulative with this. She denies voices or visions. Though states she is suicidal. With the prior hospitalization patient had issues with skin rashes when her Lamictal was increased past 50 mg twice a day. However she did ask for an increase in the medical today. I will adjusted to 50 mg twice a day. It appears she has no other support group here in town. She has a in [place] but she says she is fairly close to. In any event I feel patient does meet criteria for brief inpatient psychiatric hospitalization under the [place] act she continue suicidal though she is also somewhat histrionic labile tearful. She does have a safe place to return to. We do need to verify her placement though at [facility] and also verify that they will allow her to be followed up with a psychiatrist perhaps through [facility]. We'll continue her other medications per the EMR except will refrain at this time from any benzodiazepines and offer her Atarax and its place patient does state she has had increased alcohol use of the past month or so, to daily drinking wine but at she denies other drug use times hard liquor with a.m. drinking and solar drinking though she denies blacking out or passing out, she states she's been in the detox once a number of years ago she denies any legal issues related to drinking. She states the people at the [facility] gave her permission to drink in that facility Review of Systems Constitutional: DENIES: Diaphoretic episodes, Fatigue, Fever, Weight gain, Weight loss, Chills, Dizziness, Change in appetite, Night Sweats Endocrine: DENIES: Abnorml menstrual pattern, Heat/cold intolerance, Polydipsia , Polyuria, Polyphagia Eyes: DENIES: Blurred vision, Diplopia, Eye inflammation, Eye pain, Vision loss , Photosensitivity, Double Vision Ears, nose, mouth, throat: DENIES: Tinnitus, Hearing loss, Vertigo, Nasal discharge, Oral lesions, Throat pain, Hoarseness, Ear Pain, Running Nose, Epistaxis, Sinus Pain, Toothache, Odynophagia Respiratory: DENIES: Apneas, Cough, Snoring, Wheezing, Hemoptysis, Sputum production, Shortness of breath Cardiovascular: COMPLAINS OF: Chest pain Gastrointestinal: COMPLAINS OF: Abdominal pain Genitourinary: DENIES: Abnormal vaginal bleeding, Dysmenorrhea, Dyspareunia, Sexual dysfunction, Urinary frequency, Urinary incontinence, Urgency, Hematuria , Dysuria, Nocturia, Vaginal discharge Musculoskeletal: DENIES: Joint pain, Muscle aches, Stiffness, Joint Swelling, Back pain, Neck pain Integumentary: DENIES: Abnormal pigmentation, Pruritus, Rash, Nail changes, Breast masses, Breast skin changes, Nipple discharge Hematologic/lymphatic: DENIES: Bruising, Lymphadenopathy Immunologic/allergic: DENIES: Eczema, Urticaria Neurologic: DENIES: Abnormal gait, Headache, Localized weakness, Paresthesias, Seizures, Speech Problems, Tremor, Poor Balance Psychiatric: COMPLAINS OF: Anxiety, Depression, Suicidal Ideation (vague) Past Psych History Psychological trauma history Patient vague and ambiguous Violence risk - others (6 mos) Low Violence risk - self (6 mos) Patient states suicidal though somewhat ambiguous Substance Abuse History Drugs/Alcohol past 12 months Patient states she has been using alcohol more recently the past month or so she denies other drug use Past Family Social History Coded Allergies: lamotrigine (Unverified Adverse Reaction, Mild, Rash, 12/21/16) Past Medical History [facility] Active Scripts Trazodone (Trazodone) 50 Mg Tab, 100 MG PO HS for health, #30 TAB 0 Refills Prov:Harrison Meyer MD 11/19/16 Polyethylene Glycol 3350 Powder (Polyethylene Glycol 3350 Powder) 17 Gm Pow, 17 GM PO DAILY for health, #30 BOX 0 Refills Prov:Harrison Meyer MD 11/19/16 Lamotrigine (Lamictal) 25 Mg Tab, 50 MG PO 2 po bid for health, #120 TAB 0 Refills Prov:Harrison Meyer MD 11/19/16 Citalopram (Celexa) 40 Mg Tab, 40 MG PO DAILY for health, #30 TAB 0 Refills Prov:Harrison Meyer MD 11/19/16 Aripiprazole (Aripiprazole) 5 Mg Tab, 5 MG PO DAILY for health, #30 TAB 0 Refills Prov:Harrison Meyer MD 11/19/16 Ibuprofen (Motrin Ib) 200 Mg Tab, 800 MG PO TID Y for PAIN SCALE 1 TO 10, #21 TAB 0 Refills Prov:Camelia Prince MD 08/16/16 Trazodone (Trazodone) 50 Mg Tab, 100 MG PO HS, #30 TAB Prov:Arthur Quiroz MD 08/09/16 Polyethylene Glycol 3350 Powder (Polyethylene Glycol 3350 Powder) 17 Gm Pow, 17 GM PO DAILY, #30 Prov:Arthur Quiroz MD 08/09/16 Citalopram (Celexa) 40 Mg Tab, 40 MG PO DAILY for health, #30 TAB 0 Refills Prov:Harrison Meyer MD 05/07/16 Reported Medications Acetaminophen (Tylenol) 325 Mg Tab, 325 MG PO ONCE, #1 TAB 0 Refills 08/20/16 Hydroxyzine Pamoate (Vistaril) 25 Mg Cap, 50 MG PO BID Y for ANXIETY, CAP 0 Refills 08/16/16 Lamotrigine (Lamictal) 25 Mg Tab, 75 MG PO HS for Control Seizures, #30 TAB 0 Refills 08/16/16 Lamotrigine (Lamictal) 25 Mg Tab, 75 MG PO DAILY for Control Seizures, #30 TAB 0 Refills 08/16/16 Current Medications Medications (Trade) Dose Ordered Sig/Esvin Route Start Time Stop Time Status Last Admin (Ativan) 1 mg Q6H PRN PO 04/12/17 20:15 04/13/17 09:33 (Ativan Inj) 1 mg Q6H PRN IM 04/12/17 20:15 (Tylenol) 650 mg Q4H PRN PO 04/12/17 20:15 (Milk Of Magnesia Liq) 30 ml DAILY PRN PO 04/12/17 20:15 (Mag-Al Plus Susp Liq) 30 ml Q6H PRN PO 04/12/17 20:15 (Habitrol 21 Mg Patch.24 Hr) 1 patch DAILY T-DERMAL 04/13/17 09:00 Miscellaneous Information 1 DAILY T-DERMAL 04/13/17 09:00 (Benadryl) 50 mg HS PRN PO 04/12/17 20:30 (CeleXA) 40 mg DAILY PO 04/13/17 11:15 UNV (Miralax) 17 gm DAILY PO 04/13/17 11:15 UNV (Desyrel) 100 mg HS PO 04/13/17 21:00 UNV (LaMICtal) 50 mg BID PO 04/13/17 11:15 UNV Family Psych History Patient denies at this time Social History Patient living at [facility] has no support group and hopefully states had increased alcohol use Patient's Strengths (min. 2) Patient verbal labile axis health care Physical Exam Patient seen screened in medically cleared a [facility]. At the present time patient rested quietly in her bed on 2600 she is in no acute distress though serious somewhat tearful labile mildly histrionic, she has vague aches complaints of chest and abdomen. Though she does not complain of nausea vomiting or any bowel irregularities at this time, moves all 4 extremities without difficulty Vital Signs Vital Signs Date Time Temp Pulse Resp B/P (MAP) Pulse Ox O2 Delivery O2 Flow Rate FiO2 04/13/17 05:40 97.0 74 17 136/69 (91) 96 Lab Results Test 04/13/17 07:46 White Blood Count 8.8 TH/MM3 Red Blood Count 4.24 MIL/MM3 Hemoglobin 13.9 GM/DL Hematocrit 41.9 % Mean Corpuscular Volume 98.9 FL Mean Corpuscular Hemoglobin 32.7 PG Mean Corpuscular Hemoglobin Concent 33.1 % Red Cell Distribution Width 13.6 % Platelet Count 235 TH/MM3 Mean Platelet Volume 9.0 FL Neutrophils (%) (Auto) 63.1 % Lymphocytes (%) (Auto) 26.0 % Monocytes (%) (Auto) 8.9 % Eosinophils (%) (Auto) 0.9 % Basophils (%) (Auto) 1.1 % Neutrophils # (Auto) 5.6 TH/MM3 Lymphocytes # (Auto) 2.3 TH/MM3 Monocytes # (Auto) 0.8 TH/MM3 Eosinophils # (Auto) 0.1 TH/MM3 Basophils # (Auto) 0.1 TH/MM3 CBC Comment DIFF FINAL Differential Comment Blood Urea Nitrogen 17 MG/DL Creatinine 0.80 MG/DL Random Glucose 98 MG/DL Calcium Level 9.0 MG/DL Sodium Level 139 MEQ/L Potassium Level 4.4 MEQ/L Chloride Level 104 MEQ/L Carbon Dioxide Level 29.7 MEQ/L Anion Gap 5 MEQ/L Estimat Glomerular Filtration Rate 73 ML/MIN Triglycerides Level 135 MG/DL Cholesterol Level 161 MG/DL LDL Cholesterol 71 MG/DL HDL Cholesterol 62.7 MG/DL Cholesterol/HDL Ratio 2.56 RATIO Thyroid Stimulating Hormone 3rd Gen 1.140 uIU/ML Mental Status Examination Appearance: Appropriate, Disheveled Consciousness: Alert, Vigilant Orientation: Person, Place, Date/Time Motor Activity: Normal gait Speech: Pressured, Rapid Language: Adequate Fund of Knowledge: Adequate Attention and Concentration: Other (fair) Memory: Unremarkable (good times giving somewhat contradictory history) Mood: Sad Affect: Other (increase range and intensity) Thought Process & Associations: Intact, Tangential (mildly) Thought Content: Appropriate Hallucination Type: None Delusion Type: None Suicidal Ideation: Yes (vague) Suicidal Plan: No (denies no prior states she would jump in front of traffic) Suicidal Intention: No (denies) Homicidal Ideation: No Homicidal Plan: No Homicidal Intention: No Insight: Poor Judgment: Poor Assessment & Plan Problem List: (1) Bipolar I disorder, most recent episode (or current) mixed, moderate ICD Codes: F31.62 - Bipolar disorder, current episode mixed, moderate Assessment & Plan Estimated LOS: 5-7 days at this time patient meets criteria for involuntary psychiatric hospitalization I'll do first opinion request second opinion, for which has capacity sign for medications. We will have hospitalist consult was. Will have counselor check with [facility] to verify she is a bed there, verify if they will allow referral psychiatric services, verify if they allowed her to drink on their premises Discharge Planning Hopefully to return to [facility] Request HC Surrog/Guard Advoc?: No Harrison Meyer MD Apr 13, 2017 11:43
[2017-04-13] MEDS: POLYETHYLENE GLYCOL 17 GM PKG PO SCH (11:45)
[2017-04-13] MEDS: CITALOPRAM HYDROBROMIDE 40 MG TAB PO SCH (11:45)
[2017-04-13] MEDS: lamoTRIgine 25 MG TAB PO SCH ×2 (11:45→21:53)
--- NOTE | 2017-04-13 15:41 | PD.CONS ---
[facility] service Reason for Consult Medical management Primary Care Physician No Primary Care Physician Diagnoses: History of Present Illness Patient is a 61-year-old female with history of bipolar disorder who is admitted under psychiatry services. [facility] consulted for medical management. Patient states history of left ovarian mass and states that there was plan for her to follow-up with an AEROBICS TEACHER involution account the need for future hysterectomy. Patient denies any vaginal bleeding. Does have intermittent left lower quadrant pain. Patient also states history of constipation and takes Cristel lax on a daily basis. It is questioned patient states she was a smoker about 5-6 sticks per day and recently quit. She however at this to drinking alcohol on a daily basis wine or some flavored beers or alcoholic drinks. He denies any history of seizures. Patient states that she takes Tylenol No. 3 for this left lower quadrant pain. On exam patient appears comfortable denies any nausea vomiting denies any melena hematochezia or any vaginal bleeding. Review of Systems Constitutional: DENIES: Diaphoretic episodes, Fatigue, Fever, Weight gain, Weight loss, Chills, Dizziness, Change in appetite, Night Sweats Endocrine: DENIES: Abnorml menstrual pattern, Heat/cold intolerance, Polydipsia , Polyuria, Polyphagia Eyes: DENIES: Blurred vision, Diplopia, Eye inflammation, Eye pain, Vision loss , Photosensitivity, Double Vision Ears, nose, mouth, throat: DENIES: Tinnitus, Hearing loss, Vertigo, Nasal discharge, Oral lesions, Throat pain, Hoarseness, Ear Pain, Running Nose, Epistaxis, Sinus Pain, Toothache, Odynophagia Respiratory: DENIES: Apneas, Cough, Snoring, Wheezing, Hemoptysis, Sputum production, Shortness of breath Cardiovascular: DENIES: Chest pain, Palpitations, Syncope, Dyspnea on Exertion , PND, Lower Extremity Edema, Orthopnea, Claudication Gastrointestinal: COMPLAINS OF: Abdominal pain (chronic intermittent left lower quadrant pain) Genitourinary: DENIES: Abnormal vaginal bleeding, Dysmenorrhea, Dyspareunia, Sexual dysfunction, Urinary frequency, Urinary incontinence, Urgency, Hematuria , Dysuria, Nocturia, Vaginal discharge Musculoskeletal: DENIES: Joint pain, Muscle aches, Stiffness, Joint Swelling, Back pain, Neck pain Integumentary: DENIES: Abnormal pigmentation, Pruritus, Rash, Nail changes, Breast masses, Breast skin changes, Nipple discharge Hematologic/lymphatic: DENIES: Bruising, Lymphadenopathy Immunologic/allergic: DENIES: Eczema, Urticaria Neurologic: DENIES: Abnormal gait, Headache, Localized weakness, Paresthesias, Seizures, Speech Problems, Tremor, Poor Balance Psychiatric: COMPLAINS OF: Anxiety Past Family Social History Allergies: Coded Allergies: lamotrigine (Unverified Adverse Reaction, Mild, Rash, 12/21/16) Past Medical History History of bipolar disorder History of left ovarian mass/cyst./Chronic pain on on this area attributed to the mass Past Surgical History Appendectomy 2 sections Reported Medications Lamictal Celexa Trazodone Abilify Vistaril Cristel lax Active Ordered Medications see EMR Family History Noncontributory Social History Smokes 5-6 weeks per day Admits to alcohol use wine or flavored beers or drinks on a daily basis. Denies any substance abuse Physical Exam Vital Signs Vital Signs Date Time Temp Pulse Resp B/P (MAP) Pulse Ox O2 Delivery O2 Flow Rate FiO2 04/13/17 05:40 97.0 74 17 136/69 (91) 96 04/12/17 20:39 98.0 83 18 122/70 (87) Physical Exam GENERAL: This is a well-nourished, well-developed patient, in no apparent distress. SKIN: No rashes, ecchymoses or lesions. Cool and dry. HEAD: Atraumatic. Normocephalic. EYES: Pupils equal round and reactive. Extraocular motions intact. No scleral icterus. ENT: Nose without bleeding, Throat without erythema Airway patent. NECK: Supple, nontender, no meningeal signs. CARDIOVASCULAR: Regular rate and rhythm without murmurs, gallops, or rubs. RESPIRATORY: Clear to auscultation. Breath sounds equal bilaterally. No wheezes , rales, or rhonchi. GASTROINTESTINAL: Abdomen soft, non-tender, nondistended. No hepato-splenomegaly , or palpable masses. No guarding. Mild tenderness on deep palpation of the left lower quadrant. MUSCULOSKELETAL: Extremities without clubbing, cyanosis, or edema. No joint tenderness, effusion, or edema noted. No calf tenderness. Negative Homans sign bilaterally. NEUROLOGICAL: Awake and alert. Cranial nerves II through XII intact. Motor and sensory grossly within normal limits. Five out of 5 muscle strength in all muscle groups. Normal speech. Laboratory Laboratory Tests Test 04/13/17 07:46 White Blood Count 8.8 Red Blood Count 4.24 Hemoglobin 13.9 Hematocrit 41.9 Mean Corpuscular Volume 98.9 Mean Corpuscular Hemoglobin 32.7 Mean Corpuscular Hemoglobin Concent 33.1 Red Cell Distribution Width 13.6 Platelet Count 235 Mean Platelet Volume 9.0 Neutrophils (%) (Auto) 63.1 Lymphocytes (%) (Auto) 26.0 Monocytes (%) (Auto) 8.9 Eosinophils (%) (Auto) 0.9 Basophils (%) (Auto) 1.1 Neutrophils # (Auto) 5.6 Lymphocytes # (Auto) 2.3 Monocytes # (Auto) 0.8 Eosinophils # (Auto) 0.1 Basophils # (Auto) 0.1 CBC Comment DIFF FINAL Differential Comment Blood Urea Nitrogen 17 Creatinine 0.80 Random Glucose 98 Calcium Level 9.0 Sodium Level 139 Potassium Level 4.4 Chloride Level 104 Carbon Dioxide Level 29.7 Anion Gap 5 Estimat Glomerular Filtration Rate 73 Triglycerides Level 135 Cholesterol Level 161 LDL Cholesterol 71 HDL Cholesterol 62.7 Cholesterol/HDL Ratio 2.56 Thyroid Stimulating Hormone 3rd Gen 1.140 Result Diagram: 04/13/17 0746 04/13/17 0746 Assessment and Plan Assessment and Plan 61-year-old female admitted for Bipolar disorder management per psychiatry History of left ovarian mass/chronic pain. Tylenol when necessary for pain. Advise to Keep follow-up appointment with RECESSING MACHINE OPERATOR. Tylenol prn for pain reviewed old ER- 08/2016 visits- ER looking up Narcotic Drug prescription program - reports of of going to different cities- seeking for pain meds History of constipation continue Miralax 17 g by mouth daily Alcohol use No signs of DTs. MOnitor for DTs Smoker- counselled Labs reviewed- good CMP, good lipid panel Patient up and ambulating Discussed Condition With patient Dustin Thurston MD Apr 13, 2017 15:41
[2017-04-13] MEDS: hydrOXYzine HCL 50 MG TAB PO PRN (16:39)
[2017-04-13 16:44] LABS: HEMOGLOBIN A1a 1.1 %; HEMOGLOBIN A1b 1.6 %; HEMOGLOBIN Ao 85.1 %; HEMOGLOBIN F 0.2 %; HEMOGLOBIN LA1C 2.1 %; HEMOGLOBIN P3 3.8 %
[2017-04-13 18:00] VITALS: BP 124/59; PULSE 69; RESP 17; TEMP 98.1; O2SAT 97
[2017-04-13] MEDS: traZODone HCL 100 MG TAB PO SCH (21:53)
[2017-04-14 06:01] VITALS: BP 110/59; PULSE 64; RESP 17; TEMP 97.6; O2SAT 98
[2017-04-14] MEDS: CITALOPRAM HYDROBROMIDE 40 MG TAB PO SCH (08:38)
[2017-04-14] MEDS: POLYETHYLENE GLYCOL 17 GM PKG PO SCH (08:38)
[2017-04-14] MEDS: lamoTRIgine 25 MG TAB PO SCH ×2 (08:38→21:16)
[2017-04-14] MEDS: NICOTINE 21 MG/24 HR PATCH T-DERMAL SCH (08:39)
[2017-04-14] MEDS: REMOVE OLD PATCH T-DERMAL SCH (08:39)
--- NOTE | 2017-04-14 09:37 | PD.PSY.CON ---
Provisional Diagnosis Admission Date Apr 12, 2017 at 19:34 [place]. Bipolar disorder most recent episode mixed moderate f 31.62 History of Present Illness Service Psychiatry Consult Requested By Dr. Meyer Reason for Consult Second opinion Primary Care Physician No Primary Care Physician HPI Patient is a 61-year-old white female known to me from prior hospitalizations here comes here under [place] act signed by a glen green dated 04/11/17 at 11:52 AM at [facility]. That document reviewed essentially states patient reported to me and nurse that if she does not get help she will jump in front of a bus to "end it all". Patient initially went to their facility complaining of chest pain epigastric pain. She was medically cleared at that facility then making the statements as mentioned above. Leading to the [place]iday act and chest with this facility. Of interest eye care for the patient 11/10/16 through 11/19/16 under visit [id number] she is discharged on Lamictal 50 mg twice a day to the [facility] and follow-up through [facility] act. It appears patient has been at [facility] since then though she complains of it having "bedbugs" and should be "torn down". She states she is seen by a family practice type physician there. That the staff there does not allow her to see psychiatrist so she has not followed up through [facility]. At the present time patient laying quietly in her bed nurse Brea present throughout session. Patient is labile irritable somewhat hysterical focusing on her somatic issues. Similar to behaviors that she exhibited with the prior admission. She is somewhat passive and manipulative with this. She denies voices or visions. Though states she is suicidal. With the prior hospitalization patient had issues with skin rashes when her Lamictal was increased past 50 mg twice a day. However she did ask for an increase in the medical today. I will adjusted to 50 mg twice a day. It appears she has no other support group here in town. She has a in [place] but she says she is fairly close to. In any event I feel patient does meet criteria for brief inpatient psychiatric hospitalization under the Holliday act she continue suicidal though she is also somewhat histrionic labile tearful. She does have a safe place to return to. We do need to verify her placement though at [facility] and also verify that they will allow her to be followed up with a psychiatrist perhaps through [facility]. We'll continue her other medications per the EMR except will refrain at this time from any benzodiazepines and offer her Atarax and its place patient does state she has had increased alcohol use of the past month or so, to daily drinking wine but at she denies other drug use times hard liquor with a.m. drinking and solar drinking though she denies blacking out or passing out, she states she's been in the detox once a number of years ago she denies any legal issues related to drinking. She states the people at the [facility] gave her permission to drink in that facility. The patient is a 61 years old woman, domiciled with a roommate in [place], unemployed, , with psychiatric history of bipolar disorder, over 10 psychiatric hospitalizations, last hospitalization was here at [place] in November 2016, 1 previous suicidal attempts, alcohol use disorder, who has an established outpatient care with Dr. Felix in [facility]. She is on Lamictal 50 mg, trazodone 100 mg and Vistaril 25 mg. She was brought to the hospital under [place] act due to a suicidal ideation. Patient was consulted to be for second opinion. She is found in her bed getting ready to go to for breakfast. Patient reports that he has been feeling depressed, having frequent suicidal ideation, yesterday she wanted to jump in front of a car or overdose. Patient states that her life doesn't have any sense she has been overwhelmed, having a lot of frustrations. She also reports increased use of alcohol, about 1 or 2 bottles of wine per day. Review of Systems Constitutional: DENIES: Diaphoretic episodes, Fatigue, Fever, Weight gain, Weight loss, Chills, Dizziness, Change in appetite, Night Sweats Eyes: DENIES: Blurred vision, Diplopia, Eye inflammation, Eye pain, Vision loss , Photosensitivity, Double Vision Ears, nose, mouth, throat: DENIES: Tinnitus, Hearing loss, Vertigo, Nasal discharge, Oral lesions, Throat pain, Hoarseness, Ear Pain, Running Nose, Epistaxis, Sinus Pain, Toothache, Odynophagia Respiratory: DENIES: Apneas, Cough, Snoring, Wheezing, Hemoptysis, Sputum production, Shortness of breath Cardiovascular: DENIES: Chest pain, Palpitations, Syncope, Dyspnea on Exertion , PND, Lower Extremity Edema, Orthopnea, Claudication Gastrointestinal: DENIES: Abdominal pain, Black stools, Bloody stools, Constipation, Diarrhea, Nausea, Vomiting, Difficulty Swallowing, Anorexia Genitourinary: DENIES: Abnormal vaginal bleeding, Dysmenorrhea, Dyspareunia, Sexual dysfunction, Urinary frequency, Urinary incontinence, Urgency, Hematuria , Dysuria, Nocturia, Vaginal discharge Musculoskeletal: DENIES: Joint pain, Muscle aches, Stiffness, Joint Swelling, Back pain, Neck pain Integumentary: DENIES: Abnormal pigmentation, Pruritus, Rash, Nail changes, Breast masses, Breast skin changes, Nipple discharge Hematologic/lymphatic: DENIES: Bruising, Lymphadenopathy Immunologic/allergic: DENIES: Eczema, Urticaria Neurologic: DENIES: Abnormal gait, Headache, Localized weakness, Paresthesias, Seizures, Speech Problems, Tremor, Poor Balance Psychiatric: COMPLAINS OF: Depression, Suicidal Ideation, DENIES: Anxiety, Confusion, Mood changes, Hallucinations, Agitation, Homicidal Ideation, Delusions Past Family Social History Coded Allergies: lamotrigine (Unverified Adverse Reaction, Mild, Rash, 12/21/16) Active Scripts Trazodone (Trazodone) 50 Mg Tab, 100 MG PO HS for health, #30 TAB 0 Refills Prov:Harrison Meyer MD 11/19/16 Polyethylene Glycol 3350 Powder (Polyethylene Glycol 3350 Powder) 17 Gm Pow, 17 GM PO DAILY for health, #30 BOX 0 Refills Prov:Harrison Meyer MD 11/19/16 Lamotrigine (Lamictal) 25 Mg Tab, 50 MG PO 2 po bid for health, #120 TAB 0 Refills Prov:Harrison Meyer MD 11/19/16 Citalopram (Celexa) 40 Mg Tab, 40 MG PO DAILY for health, #30 TAB 0 Refills Prov:Harrison Meyer MD 11/19/16 Aripiprazole (Aripiprazole) 5 Mg Tab, 5 MG PO DAILY for health, #30 TAB 0 Refills Prov:Harrison Meyer MD 11/19/16 Ibuprofen (Motrin Ib) 200 Mg Tab, 800 MG PO TID Y for PAIN SCALE 1 TO 10, #21 TAB 0 Refills Prov:Camelia Prince MD 08/16/16 Trazodone (Trazodone) 50 Mg Tab, 100 MG PO HS, #30 TAB Prov:Arthur Quiroz MD 08/09/16 Polyethylene Glycol 3350 Powder (Polyethylene Glycol 3350 Powder) 17 Gm Pow, 17 GM PO DAILY, #30 Prov:Arthur Quiroz MD 08/09/16 Citalopram (Celexa) 40 Mg Tab, 40 MG PO DAILY for health, #30 TAB 0 Refills Prov:Harrison Meyer MD 05/07/16 Reported Medications Acetaminophen (Tylenol) 325 Mg Tab, 325 MG PO ONCE, #1 TAB 0 Refills 08/20/16 Hydroxyzine Pamoate (Vistaril) 25 Mg Cap, 50 MG PO BID Y for ANXIETY, CAP 0 Refills 08/16/16 Lamotrigine (Lamictal) 25 Mg Tab, 75 MG PO HS for Control Seizures, #30 TAB 0 Refills 08/16/16 Lamotrigine (Lamictal) 25 Mg Tab, 75 MG PO DAILY for Control Seizures, #30 TAB 0 Refills 08/16/16 Current Medications Medications (Trade) Dose Ordered Sig/Esvin Route Start Time Stop Time Status Last Admin (Tylenol) 650 mg Q4H PRN PO 04/12/17 20:15 (Milk Of Magnesia Liq) 30 ml DAILY PRN PO 04/12/17 20:15 (Mag-Al Plus Susp Liq) 30 ml Q6H PRN PO 04/12/17 20:15 (Habitrol 21 Mg Patch.24 Hr) 1 patch DAILY T-DERMAL 04/13/17 09:00 Miscellaneous Information 1 DAILY T-DERMAL 04/13/17 09:00 (Benadryl) 50 mg HS PRN PO 04/12/17 20:30 (CeleXA) 40 mg DAILY PO 04/13/17 11:15 04/14/17 08:38 (Miralax) 17 gm DAILY PO 04/13/17 11:15 04/14/17 08:38 (Desyrel) 100 mg HS PO 04/13/17 21:00 04/13/17 21:53 (LaMICtal) 50 mg BID PO 04/13/17 11:15 04/14/17 08:38 (Atarax) 50 mg Q6H PRN PO 04/13/17 12:00 04/13/17 16:39 Family Psych History Patient denies family psychiatric history Social History She was born and raised in [place], she lives in [place], she is , unemployed, supported by community mental health social worker, her highest level of education is college Patient's Strengths (min. 2) Patient verbal Physical Exam Vital Signs Vital Signs Date Time Temp Pulse Resp B/P (MAP) Pulse Ox O2 Delivery O2 Flow Rate FiO2 04/14/17 06:01 97.6 64 17 110/59 (76) 98 Mental Status Examination Appearance: Appropriate, Disheveled Consciousness: Alert, Vigilant Orientation: Person, Place, Date/Time Motor Activity: Normal gait Speech: Pressured, Rapid Language: Adequate Fund of Knowledge: Adequate Attention and Concentration: Other (fair) Memory: Unremarkable (good times giving somewhat contradictory history) Mood: Sad Affect: Other (increase range and intensity) Thought Process & Associations: Intact, Tangential (mildly) Thought Content: Appropriate Hallucination Type: None Delusion Type: None Suicidal Ideation: Yes (vague) Suicidal Plan: No (denies no prior states she would jump in front of traffic) Suicidal Intention: No (denies) Homicidal Ideation: No Homicidal Plan: No Homicidal Intention: No Insight: Poor Judgment: Poor Assessment & Plan Problem List: (1) Bipolar I disorder, most recent episode (or current) mixed, moderate ICD Codes: F31.62 - Bipolar disorder, current episode mixed, moderate Assessment & Plan: I have seen and examined this patient, reviewed the documentation, discussed the case with the nurse in charge. I agree and concur with Dr. Meyer's assessment and plan. Consult appreciated. Assessment & Plan Estimated LOS: days Request HC Surrog/Guard Advoc?: Mani Oconnell MD Apr 14, 2017 09:37
[2017-04-14] MEDS: hydrOXYzine HCL 50 MG TAB PO PRN (11:00)
--- NOTE | 2017-04-14 13:18 | HHI.PYPN ---
Subjective Chief Complaint: depressed suicidal Remarks Patient seen in her room with nurse Deyaniar, patient today states that she is actively suicidal that she would take the suicide pill if offered today that she would kill herself she had the chance. Is a hopelessness and guilt also related to this. It appears she has one son who is in alf for years into a six-year sentence. It appears he is tolerating the present term better than she is. There is also another son living up the [facility] is getting in July that she has a good relationship with however there is this negativity overwhelming everything. Patient also complains of hip pain that is keeping her up at night. She states that she was taking one Tylenol No. 3 at bedtime to help with this I will offer her one at at bedtime otherwise for now continue treatment Review of Systems Except as stated in HPI: all other systems reviewed are Neg Mental Status Examination Appearance: Appropriate, Disheveled Consciousness: Alert, Vigilant Orientation: Person, Place, Date/Time Motor Activity: Normal gait Speech: Pressured, Rapid Language: Adequate Fund of Knowledge: Adequate Attention and Concentration: Other (fair) Memory: Unremarkable (good times giving somewhat contradictory history) Mood: Sad Affect: Other (increase range and intensity) Thought Process & Associations: Intact, Tangential (mildly) Thought Content: Appropriate Hallucination Type: None Delusion Type: None Suicidal Ideation: Yes (vague) Suicidal Plan: Yes (today states would take the suicide pill or jump in front of traffic) Suicidal Intention: Yes (today states would take the suicide pill or jump in front of traffic) Homicidal Ideation: No Homicidal Plan: No Homicidal Intention: No Insight: Poor Judgment: Poor Results Vitals/IOs Vital Signs Date Time Temp Pulse Resp B/P (MAP) Pulse Ox O2 Delivery O2 Flow Rate FiO2 04/14/17 06:01 97.6 64 17 110/59 (86) 98 Assessment & Plan Problem List: (1) Bipolar I disorder, most recent episode (or current) mixed, moderate ICD Codes: F31.62 - Bipolar disorder, current episode mixed, moderate Assessment & Plan Estimated LOS: days patient remains severely depressed with suicidal ideation intent and plan Justification for Cont. Inpt. At this time patient will decompensate with a high risk of committing suicide if discharged Discharge Planning This needs to be determined depending on patient's response to treatment Request HC Surrog/Guard Advoc?: No Harrison Meyer MD Apr 14, 2017 13:18
--- NOTE | 2017-04-14 15:19 | HHI.PR ---
Subjective Remarks o complains patient up and ambulating taking good po Objective Vitals Vital Signs Date Time Temp Pulse Resp B/P (MAP) Pulse Ox O2 Delivery O2 Flow Rate FiO2 04/14/17 06:01 97.6 64 17 110/59 (76) 98 04/13/17 18:00 98.1 69 17 124/59 (80) 97 Result Diagram: 04/13/17 0746 04/13/17 0746 Objective Remarks awake and alert, interactive anicteric lungs clear regular rhythm abdomen soft, no guarding ,nontender extremities no edema A/P Assessment and Plan 61-year-old female admitted for Bipolar disorder management per psychiatry History of left ovarian mass/chronic pain. Advise to Keep follow-up appointment with [facility]. Tylenol prn for pain. reviewed old ER- 08/2016 visits- ER looking up Narcotic Drug prescription program - reports of of going to different cities- seeking for pain meds History of constipation continue Miralax 17 g by mouth daily Alcohol use No signs of DTs. MOnitor for DTs Smoker- counselled Labs reviewed- good CMP, good lipid panel [facility] sings off. Please reconsult if needed Dustin Thurston MD Apr 14, 2017 15:19
[2017-04-14 20:14] VITALS: BP 122/65; PULSE 64; RESP 16; TEMP 96.9; O2SAT 98
[2017-04-14] MEDS: traZODone HCL 100 MG TAB PO SCH (21:16)
[2017-04-14] MEDS: ACETAMINOPHEN/CODEINE 300 MG/30 MG TAB PO PRN (22:19)
[2017-04-15 06:54] VITALS: BP 109/56; PULSE 62; RESP 16; TEMP 98; O2SAT 97
[2017-04-15] MEDS: MAGNESIUM HYDROXIDE SUSP 30 ML CUP PO PRN (08:39)
[2017-04-15] MEDS: CITALOPRAM HYDROBROMIDE 40 MG TAB PO SCH (08:39)
[2017-04-15] MEDS: lamoTRIgine 25 MG TAB PO SCH ×2 (08:39→21:12)
[2017-04-15] MEDS: POLYETHYLENE GLYCOL 17 GM PKG PO SCH (08:39)
[2017-04-15] MEDS: REMOVE OLD PATCH T-DERMAL SCH (08:41)
[2017-04-15] MEDS: NICOTINE 21 MG/24 HR PATCH T-DERMAL SCH (08:42)
[2017-04-15] MEDS: hydrOXYzine HCL 50 MG TAB PO PRN (12:58)
--- NOTE | 2017-04-15 14:54 | HHI.PYPN ---
Subjective Chief Complaint: depressed suicidal Remarks Issues seen in [place] with nurse. Patient continues severely depressed actively suicidal. She continues to state that she cool-tip peace with the fact that she knows she is able to kill herself. She sees no other resolution to her problems at this time. I do notice that it shows patient to be allergic to lamotrigine. That is not accurate. With patient's prior hospitalization she developed a rash at higher doses of lamotrigine. But with the dose at 50 mg twice a day the rash disappeared with no sequelae. Patient does wish to continue the lamotrigine at that dose and we will allow that as long as we continue our observation. However with the limitations on her ability to titrate the lamotrigine I feel we should consider an alternative adjunct for her depression. We'll add Abilify 5 mg in the a.m. and consider titrating off the lamotrigine after the weekend Review of Systems Except as stated in HPI: all other systems reviewed are Neg Mental Status Examination Appearance: Appropriate, Disheveled Consciousness: Alert, Vigilant Orientation: Person, Place, Date/Time Motor Activity: Normal gait Speech: Pressured, Rapid Language: Adequate Fund of Knowledge: Adequate Attention and Concentration: Other (fair) Memory: Unremarkable (good times giving somewhat contradictory history) Mood: Sad Affect: Other (increase range and intensity) Thought Process & Associations: Intact, Tangential (mildly) Thought Content: Appropriate Hallucination Type: None Delusion Type: None Suicidal Ideation: Yes (vague) Suicidal Plan: Yes (today states would take the suicide pill or jump in front of traffic) Suicidal Intention: Yes (today states would take the suicide pill or jump in front of traffic) Homicidal Ideation: No Homicidal Plan: No Homicidal Intention: No Insight: Poor Judgment: Poor Results Vitals/IOs Vital Signs Date Time Temp Pulse Resp B/P (MAP) Pulse Ox O2 Delivery O2 Flow Rate FiO2 04/15/17 06:54 98.0 62 16 109/56 (73) 97 Intake and Output 04/15/17 04/15/17 04/16/17 08:00 16:00 00:00 Intake Total 240 ml Balance 240 ml Assessment & Plan Problem List: (1) Bipolar I disorder, most recent episode (or current) mixed, moderate ICD Codes: F31.62 - Bipolar disorder, current episode mixed, moderate Assessment & Plan Estimated LOS: days patient continue suicidal with ideation intent and plan, she continues also give a commitment to the fact that that is her choice and she is at peace with it. See medication adjustments above Justification for Cont. Inpt. At this time patient would significantly deteriorate with placed in the lower level of care Discharge Planning Unknown at this time Request HC Surrog/Guard Advoc?: No Harrison Meeyr MD Apr 15, 2017 14:54
[2017-04-15 18:52] VITALS: BP 103/61; PULSE 64; RESP 17; TEMP 98.5; O2SAT 98
[2017-04-15] MEDS: traZODone HCL 100 MG TAB PO SCH (21:11)
[2017-04-15] MEDS: ACETAMINOPHEN/CODEINE 300 MG/30 MG TAB PO PRN (21:12)
[2017-04-16] MEDS ORDERED: MORPHINE SULFATE 4 MG/ML INJ IV PUSH ONE (00:45)
[2017-04-16 06:21] VITALS: BP 109/59; PULSE 60; RESP 18; TEMP 97.7; O2SAT 93
[2017-04-16] MEDS: hydrOXYzine HCL 50 MG TAB PO PRN ×2 (06:35→13:54)
[2017-04-16] MEDS: CITALOPRAM HYDROBROMIDE 40 MG TAB PO SCH (09:00)
[2017-04-16] MEDS: REMOVE OLD PATCH T-DERMAL SCH (09:00)
[2017-04-16] MEDS: NICOTINE 21 MG/24 HR PATCH T-DERMAL SCH (09:00)
[2017-04-16] MEDS: POLYETHYLENE GLYCOL 17 GM PKG PO SCH (09:00)
[2017-04-16] MEDS: ARIPiprazole 5 MG TAB PO SCH (09:00)
[2017-04-16] MEDS: lamoTRIgine 25 MG TAB PO SCH ×2 (09:00→21:01)
--- NOTE | 2017-04-16 09:00 | HHI.PYPN ---
Subjective Chief Complaint: depressed suicidal Remarks Patient seen for follow-up, chart reviewed. Discussion with nursing staff reported that patient currently has rash likely due to shingles, decreased suicidal ideation last evening and reports having poor sleep due to pain from rash. Patient found lying in hospital bed, cooperative. Patient states that she continues to have pain from the rash which hasn't disturbed her sleep. Patient states that her rash has been recurrent since the age of [age] years old and her last outbreak was 2 years ago. Patient states that she continues to for depressed 10/16/ 10 be in its worst) but states that mood is slightly improving; continues to endorse suicidal ideations at this time. Patient denies any perceptual disturbances or delusions. Review of Systems Except as stated in HPI: all other systems reviewed are Neg Mental Status Examination Appearance: Appropriate, Disheveled Consciousness: Alert, Vigilant Orientation: Person, Place, Date/Time Motor Activity: Normal gait Speech: Pressured, Rapid Language: Adequate Fund of Knowledge: Adequate Attention and Concentration: Other (fair) Memory: Unremarkable (good times giving somewhat contradictory history) Mood: Sad Affect: Sad, Other (noted be somewhat tearful) Thought Process & Associations: Intact, Linear Thought Content: Appropriate Hallucination Type: None Delusion Type: None Suicidal Ideation: Yes (vague) Suicidal Plan: Yes (today states would take the suicide pill or jump in front of traffic) Suicidal Intention: Yes (today states would take the suicide pill or jump in front of traffic) Homicidal Ideation: No Homicidal Plan: No Homicidal Intention: No Insight: Poor Judgment: Poor Results Vitals/IOs Vital Signs Date Time Temp Pulse Resp B/P (MAP) Pulse Ox O2 Delivery O2 Flow Rate FiO2 04/16/17 06:21 97.7 60 18 109/59 (76) 93 Intake and Output 04/16/17 04/16/17 04/17/17 08:00 16:00 00:00 Intake Total 480 ml Balance 480 ml Assessment & Plan Problem List: (1) Bipolar I disorder, most recent episode (or current) mixed, moderate ICD Codes: F31.62 - Bipolar disorder, current episode mixed, moderate Assessment & Plan Patient at this time continues to report feeling depressed along with continue suicide ideations. Patient continued on Lamictal 50 mg by mouth twice a day as well as will start Abilify 5 mg by mouth at bedtime. Continue to monitor mood and behavior. Recommendations as per primary medical team. Discharge planning in progress Justification for Cont. Inpt. At risk for further decompensation if at lower level of care Request HC Surrog/Guard Advoc?: No Ra Zamorano MD Apr 16, 2017 09:00
[2017-04-16] MEDS: MAGNESIUM HYDROXIDE SUSP 30 ML CUP PO PRN (09:21)
[2017-04-16] MEDS: ACETAMINOPHEN/CODEINE 300 MG/30 MG TAB PO PRN (13:55)
--- NOTE | 2017-04-16 17:34 | HHI.PR ---
Subjective Remarks reconsulted - complaining of pain sacrum- noted painful vesicular lesions on the sacrum- started last evening afebrile per patient- history or recurrent eruptions on this area- whenever she is stressed treated with Acyclovir and topical cream states nothing works only pain meds Objective Vitals Vital Signs Date Time Temp Pulse Resp B/P (MAP) Pulse Ox O2 Delivery O2 Flow Rate FiO2 04/16/17 06:21 97.7 60 18 109/59 (76) 93 04/15/17 18:52 98.5 64 17 103/61 (75) 98 I/O 04/15/17 04/15/17 04/15/17 04/16/17 04/16/17 04/16/17 07:00 15:00 23:00 07:00 15:00 23:00 Intake Total 240 ml 240 ml 480 ml Balance 240 ml 240 ml 480 ml Intake Oral 240 ml 240 ml 480 ml # Voids 1 Result Diagram: 04/13/17 0746 04/13/17 0746 Objective Remarks awake and alert, interactive anicteric lungs clear regular rhythm abdomen soft, no guarding ,nontender sacral area with vesicular lesions just above sacral area, slightly tender, no induration extremities no edema A/P Assessment and Plan 61-year-old female admitted for Bipolar disorder management per psychiatry Herpes zoster- breakout- sacral start Valtrex course 1 gm po tid x 7 days. monitor response gabapentin tid History of chronic pain History od left ovarian mass Advise to Keep follow-up appointment with [facility]CH[facility]. Tylenol prn for pain. reviewed old ER- 08/2016 visits- ER looked Narcotic Drug prescription program - reports of of going to different cities- seeking for pain meds History of constipation continue Miralax 17 g by mouth daily Alcohol use No signs of DTs. MOnitor for DTs Smoker- counselled Labs reviewed- good CMP, good lipid panel Dustin Thurston MD Apr 16, 2017 17:34
[2017-04-16 18:00] VITALS: BP 109/62; PULSE 74; RESP 18; TEMP 98.1; O2SAT 96
[2017-04-16] MEDS: GABAPENTIN 100 MG CAP PO SCH (18:00)
[2017-04-16] MEDS: valACYclovir HCL 500 MG TAB PO SCH (21:01)
[2017-04-16] MEDS: traZODone HCL 100 MG TAB PO SCH (21:02)
[2017-04-16] MEDS: diphenhydrAMINE HCL 50 MG CAP PO PRN (21:02)
[2017-04-17] MEDS: ACETAMINOPHEN/CODEINE 300 MG/30 MG TAB PO PRN ×2 (01:56→20:26)
[2017-04-17] MEDS: valACYclovir HCL 500 MG TAB PO SCH ×3 (05:51→20:26)
[2017-04-17 05:58] VITALS: BP 112/77; PULSE 62; RESP 16; TEMP 97.8; O2SAT 95
--- NOTE | 2017-04-17 07:58 | HHI.PYPN ---
Subjective Chief Complaint: depressed suicidal Remarks Patient seen for follow-up, chart review. Discussion she staff reported the patient had reported having pain in the area where she has shingles and was provided with Tylenol No. 3 one time and slept slightly better. Patient was found sitting in hospital bed, cooperative stating that she did sleep better with the Neurontin that was started yesterday. Patient states her mood has been "better", she reports that she continues to feel depressed but less so than yesterday (5 out of 10, 10 being at its worst), patient continues to have suicidal ideations which she last had this morning. Patient states that although she continues to have thoughts of not why to be alive or thoughts of wanting to walk into traffic she states that the now are "coming and going" and last all day as before. Patient states that she now feels safe feels that there is an alternative to ending her life now. Review of Systems Except as stated in HPI: all other systems reviewed are Neg Mental Status Examination Appearance: Disheveled Consciousness: Alert, Vigilant Orientation: Person, Place, Date/Time Motor Activity: Normal gait Speech: Pressured, Rapid Language: Adequate Fund of Knowledge: Adequate Attention and Concentration: Other (fair) Memory: Unremarkable (good times giving somewhat contradictory history) Mood: Sad (less so today) Affect: Sad (less so today) Thought Process & Associations: Intact, Linear Thought Content: Appropriate Hallucination Type: None Delusion Type: None Suicidal Ideation: Yes (vague) Suicidal Plan: Yes ( jump in front of traffic) Suicidal Intention: Yes (jump in front of traffic) Homicidal Ideation: No Homicidal Plan: No Homicidal Intention: No Insight: Poor Judgment: Poor Results Vitals/IOs Vital Signs Date Time Temp Pulse Resp B/P (MAP) Pulse Ox O2 Delivery O2 Flow Rate FiO2 04/17/17 05:58 97.8 62 16 112/77 (28) 95 Assessment & Plan Problem List: (1) Bipolar I disorder, most recent episode (or current) mixed, moderate ICD Codes: F31.62 - Bipolar disorder, current episode mixed, moderate Assessment & Plan Patient at this time continues to report feeling depressed although appears to be slightly improving but continues to have intermittent suicidal ideations with thoughts of jumping into traffic. Patient reports tolerating medication regimen well. Patient states that with the start of Neurontin her pain has decreased and was able to sleep better. Continue current treatment for now. Discharge planning in progress Justification for Cont. Inpt. At risk for further decompensation if at lower level of care Discharge Planning Patient to return back to her residence was psychiatrically stable. Request HC Surrog/Guard Advoc?: Ra Juarez MD Apr 17, 2017 07:58
[2017-04-17] MEDS: NICOTINE 21 MG/24 HR PATCH T-DERMAL SCH (09:00)
[2017-04-17] MEDS: REMOVE OLD PATCH T-DERMAL SCH (09:00)
[2017-04-17] MEDS: CITALOPRAM HYDROBROMIDE 40 MG TAB PO SCH (09:52)
[2017-04-17] MEDS: hydrOXYzine HCL 50 MG TAB PO PRN (09:52)
[2017-04-17] MEDS: ARIPiprazole 5 MG TAB PO SCH (09:52)
[2017-04-17] MEDS: GABAPENTIN 100 MG CAP PO SCH ×3 (09:52→18:00)
[2017-04-17] MEDS: POLYETHYLENE GLYCOL 17 GM PKG PO SCH (09:52)
[2017-04-17] MEDS: lamoTRIgine 25 MG TAB PO SCH ×2 (09:52→20:26)
--- NOTE | 2017-04-17 15:00 | HHI.PR ---
Subjective Remarks Follow up herpes zoster. Patient states that the pain is better today. She has no complaints at this time. Denies chest pain, dyspnea. Objective Vitals Vital Signs Date Time Temp Pulse Resp B/P (MAP) Pulse Ox O2 Delivery O2 Flow Rate FiO2 04/17/17 05:58 97.8 62 16 112/77 (89) 95 04/16/17 18:00 98.1 74 18 109/62 (78) 96 I/O 04/16/17 04/16/17 04/16/17 04/17/17 04/17/17 04/17/17 07:00 15:00 23:00 07:00 15:00 23:00 Intake Total 480 ml 720 ml Balance 480 ml 720 ml Intake Oral 480 ml 720 ml # Voids 1 1 Result Diagram: 04/13/17 0746 04/13/17 0746 Objective Remarks General: No acute distress. Heart: Regular rate and rhythm. No murmur. Lungs: Clear to auscultation bilaterally. No wheezes, rales, or rhonchi. Breathing is nonlabored. Abdomen: Soft, nontender, nondistended. Extremities: No lower extremity edema. Psych: Alert and oriented. Procedures None Urinary Catheter: No Vascular Central Line Catheter: No A/P Assessment and Plan 1. Bipolar disorder: Management per psychiatry. 2. Herpes zoster: Patient has an outbreak in the sacral region. Continue Valtrex , gabapentin. Patient reports improvement in symptoms already. She states that she has had a similar outbreak multiple times in the past in the same area. 3. Left ovarian mass: Follow-up with gynecology as scheduled. 4. Constipation: Continue MiraLAX. Patient is medically stable for discharge. [facility] will sign off. Continue Valtrex x7 days total. Bishop Goldberg MD Apr 17, 2017 15:00
[2017-04-17] MEDS ORDERED: GABA100C4 PO (15:02)
[2017-04-17] MEDS ORDERED: VALT500T PO (15:02)
[2017-04-17 18:25] VITALS: BP 118/51; PULSE 65; RESP 16; TEMP 98.1; O2SAT 96
[2017-04-17] MEDS: traZODone HCL 100 MG TAB PO SCH (20:26)
[2017-04-18] MEDS: hydrOXYzine HCL 50 MG TAB PO PRN (04:25)
[2017-04-18] MEDS: diphenhydrAMINE HCL 50 MG CAP PO PRN (04:25)
[2017-04-18] MEDS: valACYclovir HCL 500 MG TAB PO SCH ×2 (05:06→12:24)
[2017-04-18 05:59] VITALS: BP 131/64; PULSE 75; RESP 17; TEMP 98.1; O2SAT 96
[2017-04-18] MEDS: lamoTRIgine 25 MG TAB PO SCH (08:52)
[2017-04-18] MEDS: ARIPiprazole 5 MG TAB PO SCH (08:52)
[2017-04-18] MEDS: GABAPENTIN 100 MG CAP PO SCH ×2 (08:52→12:23)
[2017-04-18] MEDS: POLYETHYLENE GLYCOL 17 GM PKG PO SCH (08:52)
[2017-04-18] MEDS: CITALOPRAM HYDROBROMIDE 40 MG TAB PO SCH (08:52)
[2017-04-18] MEDS: REMOVE OLD PATCH T-DERMAL SCH (09:00)
[2017-04-18] MEDS: NICOTINE 21 MG/24 HR PATCH T-DERMAL SCH (09:00)
--- NOTE | 2017-04-18 09:27 | HHI.PYPN ---
Subjective Chief Complaint: depressed suicidal Remarks Patient seen in her room with counselor Marlen, while patient states she has had multiple year history of vague intermittent suicidal ideation she denies any intent or plan, she states she is feeling better, she states that she is not willing to go back to [facility]. She knows that is a safe place for her. She is also able to contract to do no harm. However patient is still under isolation for her shingles. Need to coordinate any discharge with her being medically cleared for this. Review of Systems Except as stated in HPI: all other systems reviewed are Neg Mental Status Examination Appearance: Disheveled Consciousness: Alert, Vigilant Orientation: Person, Place, Date/Time Motor Activity: Normal gait Speech: Pressured, Rapid Language: Adequate Fund of Knowledge: Adequate Attention and Concentration: Other (fair) Memory: Unremarkable (good times giving somewhat contradictory history) Mood: Sad (less so today) Affect: Sad (less so today) Thought Process & Associations: Intact, Linear Thought Content: Appropriate Hallucination Type: None Delusion Type: None Suicidal Ideation: Yes (vague has been occurring intermittently for many years) Suicidal Plan: Yes (denies any plan) Suicidal Intention: Yes (denies any intent) Homicidal Ideation: No Homicidal Plan: No Homicidal Intention: No Insight: Poor Judgment: Poor Results Vitals/IOs Vital Signs Date Time Temp Pulse Resp B/P (MAP) Pulse Ox O2 Delivery O2 Flow Rate FiO2 04/18/17 05:59 98.1 75 17 131/64 (86) 96 Intake and Output 04/18/17 04/18/17 04/19/17 08:00 16:00 00:00 Intake Total 240 ml Balance 240 ml Assessment & Plan Problem List: (1) Bipolar I disorder, most recent episode (or current) mixed, moderate ICD Codes: F31.62 - Bipolar disorder, current episode mixed, moderate Assessment & Plan Estimated LOS: days patient continues to state history of vague suicidal ideation 97 this time, also denies any intent or plan. States she is willing to return to [facility]. We need to coordinate with medicine and medical clearance for her shingles prior to discharge Justification for Cont. Inpt. We'll await medical clearance Discharge Planning Return the [facility] we await medical clearance Request HC Surrog/Guard Advoc?: No Harrison Meyer MD Apr 18, 2017 09:27
--- NOTE | 2017-04-18 11:02 | PD.TTN ---
Patient Problems 1. Discharge planning 2. Medication compliance 3. Knowledge deficit 4. Lack of coping skills Progress Toward Goals Provider Present: Dr. Marilee Meyer Provider Input: Patient has moved to medical floor due to some complaints about pain. Patient is cooperative and compliant with medications and denies side effects from psychotropic medications. Nurse(s) Input: Patient is calm and cooperative and compliant with medications. Patient is able to attend to ADLs and states that she feels ready for discharge. Psychiatric Counselors Present: RAYNA Benitez Psych Therapist Input: Counselor met with patient to discuss discharge planning. Patient states that she is wanting to return back home to [facility]. Patient did state that she feels "at peace" because she knows that she has the capability to kill herself but jumping in front of traffic. When further asked to eleborate, patient states that she would not do it. Group Spec/RT/OT/HERNANDEZ Present: Star Knutson OT Group Spec/RT/OT/HERNANDEZ Input: Patient attends selective groups. Rosa Maria ReynagaHortensia Apr 18, 2017 11:02
[2017-04-18] MEDS ORDERED: ARIP1TAB11 PO (11:09)
[2017-04-18] MEDS ORDERED: CELE40TA PO (11:09)
[2017-04-18] MEDS ORDERED: LAMO25CH CHEW (11:09)
[2017-04-18] MEDS ORDERED: TRAZ50TA12 PO (11:09)
--- NOTE | 2017-04-18 11:17 | HHI.DS ---
Psychiatry Discharge Summary Inpatient Psychiatric care?: Yes Advance Directive: No Reason Not Provided: none Mental Health AdvanceDirective: No Health Care Proxy: No Admission Admission Date Apr 12, 2017 at 19:34 Admission Diagnosis: (1) Bipolar I disorder, most recent episode (or current) mixed, moderate ICD Code: F31.62 - Bipolar disorder, current episode mixed, moderate Brief History Patient is a 61-year-old white female known to me from prior hospitalizations here comes here under Holliday act signed by a glen green dated 04/11/17 at 11:52 AM at [facility]. That document reviewed essentially states patient reported to me and nurse that if she does not get help she will jump in front of a bus to "end it all". Patient initially went to their facility complaining of chest pain epigastric pain. She was medically cleared at that facility then making the statements as mentioned above. Leading to the Holliday act and chest with this facility. Of interest eye care for the patient 11/10/16 through 11/19/16 under visit [phone] she is discharged on Lamictal 50 mg twice a day to the [facility] and follow-up through [facility]. It appears patient has been at [facility] since then though she complains of it having "bedbugs" and should be "torn down". She states she is seen by a family practice type physician there. That the staff there does not allow her to see psychiatrist so she has not followed up through [facility]. At the present time patient laying quietly in her bed nurse Brea present throughout session. Patient is labile irritable somewhat hysterical focusing on her somatic issues. Similar to behaviors that she exhibited with the prior admission. She is somewhat passive and manipulative with this. She denies voices or visions. Though states she is suicidal. With the prior hospitalization patient had issues with skin rashes when her Lamictal was increased past 50 mg twice a day. However she did ask for an increase in the medical today. I will adjusted to 50 mg twice a day. It appears she has no other support group here in town. She has a in [place] but she says she is fairly close to. In any event I feel patient does meet criteria for brief inpatient psychiatric hospitalization under the Holliday act she continue suicidal though she is also somewhat histrionic labile tearful. She does have a safe place to return to. We do need to verify her placement though at [facility] and also verify that they will allow her to be followed up with a psychiatrist perhaps through [facility]. We'll continue her other medications per the EMR except will refrain at this time from any benzodiazepines and offer her Atarax and its place patient does state she has had increased alcohol use of the past month or so, to daily drinking wine but at she denies other drug use times hard liquor with a.m. drinking and solar drinking though she denies blacking out or passing out, she states she's been in the detox once a number of years ago she denies any legal issues related to drinking. She states the people at the [facility] gave her permission to drink in that facility. The patient is a 61 years old woman, domiciled with a roommate in [place], unemployed, , with psychiatric history of bipolar disorder, over 10 psychiatric hospitalizations, last hospitalization was here at [place] in November 2016, 1 previous suicidal attempts, alcohol use disorder, who has an established outpatient care with Dr. Felix in [facility]. She is on Lamictal 50 mg, trazodone 100 mg and Vistaril 25 mg. She was brought to the hospital under Holliday act due to a suicidal ideation. Patient was consulted to be for second opinion. She is found in her bed getting ready to go to for breakfast. Patient reports that he has been feeling depressed, having frequent suicidal ideation, yesterday she wanted to jump in front of a car or overdose. Patient states that her life doesn't have any sense she has been overwhelmed, having a lot of frustrations. She also reports increased use of alcohol, about 1 or 2 bottles of wine per day. Tobacco Use In Past 30 Days: No Tobacco Past 30 Days Alcohol Use: 4 or More Times Per Week Hospital Course Patient's hospital course was significant for her chronic multiple year history of intermittent suicidal ideation. She has been compliant with her medications. She now denies any suicidal intent or plan. She states the ideation is softer and intermittent. And that she feels safe being discharged today. Is able contracted to us to do no harm, and to return here if there is any issues. Patient does have a bed at [facility] she does wish to return there for further her recovery. Thus patient is to be discharged today to follow-up with Rx 1 month to follow-up Leonardo hutchins, also follow-up primary care physician related to her shingles. Patient has been medically cleared for discharge by the medicine service Results Blood Pressure 131 / 64 Vital Signs Date Time Temp Pulse Resp B/P (MAP) Pulse Ox O2 Delivery O2 Flow Rate FiO2 04/18/17 05:59 98.1 75 17 131/64 (86) 96 Laboratory Results Test 04/13/17 07:46 Cholesterol Level 161 MG/DL (120-200) HDL Cholesterol 62.7 MG/DL (40.0-60.0) Hemoglobin A1c 5.4 % (4.3-6.0) LDL Cholesterol 71 MG/DL (0-99) Triglycerides Level 135 MG/DL (42-150) Summary of Procedures None done Pending results at discharge: No Medications # of Antipsychotic meds at D/C: 1 Approp Antipsych med options 1 - Minimum of three failed multiple trials of monotherapy. 2 - Documented plan to taper to monotherapy due to previous use of multiple meds OR cross-taper in progress at D/C. 3 - Documentation of augmentation of Clozapine. 4 - Justification other than those listed in allowable values 1-3, document here : Discharge Discharge Date: Apr 18, 2017 Discharge Diagnosis: (1) Bipolar I disorder, most recent episode (or current) mixed, moderate Diagnosis: Principal ICD Code: F31.62 - Bipolar disorder, current episode mixed, moderate (2) Shingles Diagnosis: Secondary ICD Code: B02.9 - Zoster without complications Pt Condition on Discharge: Stable Discharge Disposition: ACLF/HALF-WAY Discharge Instructions Diet Instructions: As Tolerated, No Restrictions Activities you can perform: Regular-No Restrictions Scheduled Appointment: [facility] Discharge Time > 30 minutes Mental Status Examination Appearance: Disheveled Consciousness: Alert, Vigilant Orientation: Person, Place, Date/Time Motor Activity: Normal gait Speech: Pressured, Rapid Language: Adequate Fund of Knowledge: Adequate Attention and Concentration: Other (fair) Memory: Unremarkable (good times giving somewhat contradictory history) Mood: Sad (less so today) Affect: Sad (less so today) Thought Process & Associations: Intact, Linear Thought Content: Appropriate Hallucination Type: None Delusion Type: None Suicidal Ideation: Yes (vague has been occurring intermittently for many years) Suicidal Plan: Yes (denies any plan) Suicidal Intention: Yes (denies any intent) Homicidal Ideation: No Homicidal Plan: No Homicidal Intention: No Insight: Poor Judgment: Poor Discharge/Advance Care Plan Health Problems: (1) Bipolar I disorder, most recent episode (or current) mixed, moderate Goals to promote your health * To prevent worsening of your condition and complications * To maintain your health at the optimal level Directions to meet your goals Take your medications as prescribed Follow your dietary instruction Follow activity as directed Keep your appointments as scheduled Take your immunizations and boosters as scheduled If your symptoms worsen call your PCP, if no PCP go to Urgent Care Center or Emergency Room For 29/11 questions related to your inpatient stay or results of tests pending at discharge, please contact Dr. Harrison Meyer at Smoking is Dangerous to Your Health. Avoid second hand smoking Harrison Meyer MD Apr 18, 2017 11:17
[2017-04-18] MEDS: ACETAMINOPHEN/CODEINE 300 MG/30 MG TAB PO PRN (12:24)
== END 2017-04-18 15:12 | disposition home or self-care (01) | DRG 885 ==
LOC: H260 19:34 → H4EA 04-16 00:15
PROVIDERS: ADMIT Psychiatry & Neurology Psychiatry; ATTEND Psychiatry & Neurology Psychiatry
DX: F31.62 Bipolar disorder, current episode mixed, moderate (principal); R45.851 Suicidal ideations; B02.9 Zoster without complications; K59.00 Constipation, unspecified; F17.210 Nicotine dependence, cigarettes, uncomplicated; N83.9 Noninflammatory disorder of ovary, fallopian tube and broad ligament, unspecified; G89.29 Other chronic pain; Z88.8 Allergy status to other drugs, medicaments and biological substances
CPT/HCPCS: 80048; 80061; 83036; 84443; 85025; J2270; Q0163

== ENCOUNTER 2017-08-10 18:29 | Inpatient (IN) | payer OTHER ==
[~2017-08-10] VITALS: Ht 167.6 cm; Wt 69.7 kg
[~2017-08-10 18:29] MED LIST changes: +GABA100C4 PO; +LAMO25CH CHEW; +VALT500T PO
[2017-08-10 18:47] VITALS: BP 136/66; PULSE 77; RESP 18; O2SAT 96
[2017-08-10] MEDS ORDERED: LAMO25 PO (19:30)
[2017-08-10 20:08] VITALS: BP 113/65; PULSE 78; RESP 16; TEMP 98.3; O2SAT 96
--- NOTE | 2017-08-10 21:17 | PD ---
HPI Chief Complaint: Psychiatric Symptoms Time Seen by Provider: 19:19 Travel History International Travel<30 days: No Contact w/Intl Traveler<30days: No Traveled to known affect area: No History of Present Illness HPI 62-year-old female presents emergency department under Holliday act, transfer from [facility]. Patient has been having worsening depression. She states that she has been having suicidal thoughts. Her plan this morning was to walk out into traffic. However she did not do this. Denies any acute medical needs at this time. PFSH Past Medical History Autoimmune Disease: No Anxiety: Yes Depression: Yes Cancer: Yes (per pt mass on her left ovary) Cardiovascular Problems: Yes (per recent work up for chest pain at ) Chemotherapy: No Diabetes: No Endocrine: No Gastrointestinal Disorders: No Genitourinary: No Headaches: No Immune Disorder: No Implanted Vascular Access Dvce: No Musculoskeletal: No Neurologic: No Psychiatric: Yes (per pt been diagnosised with Bipolar when pt was 26 years of age) Reproductive: No Respiratory: No Radiation Therapy: No Seizures: Yes Thyroid Disease: No Ulcer: Yes (2 stomach ulcers) ?: Unknown Menopausal: Yes : 2 Para: 2 Miscarriage: 0 : 0 Tubal Ligation: Yes Past Surgical History Abdominal Surgery: No AICD: No Appendectomy: Yes Arteriovenous Shunt: No Cardiac Surgery: No Section: Yes (2x C-sections) Ear Surgery: No Endocrine Surgery: No Eye Surgery: No Gynecologic Surgery: Yes (cyst on ovaries, X2) Insulin Pump: No Joint Replacement: No Neurologic Surgery: No Oral Surgery: Yes (beginning to start with dentures) Pacemaker: No Thoracic Surgery: No Social History Alcohol Use: No Tobacco Use: Yes (4-5 CIGARETTES PER DAY) Substance Use: Yes Allergies-Medications (Allergen,Severity, Reaction): Coded Allergies: No Known Allergies (Unverified , 08/10/17) Reported Meds & Prescriptions Reported Meds & Active Scripts Active Gabapentin 100 Mg Cap 100 Mg PO TID Trazodone (Trazodone HCl) 50 Mg Tab 100 Mg PO HS Reported Lamictal (Lamotrigine) 25 Mg Tab 50 Mg PO BID Tylenol (Acetaminophen) 325 Mg Tab 325 Mg PO DAILY Vistaril (Hydroxyzine Pamoate) 25 Mg Cap 50 Mg PO BID PRN Review of Systems Except as stated in HPI: all other systems reviewed are Neg Physical Exam Narrative GENERAL: Well-nourished female patient, no acute distress. SKIN: Focused skin assessment warm/dry. HEAD: Atraumatic. Normocephalic. EYES: Pupils equal and round. No scleral icterus. No injection or drainage. ENT: No nasal bleeding or discharge. Mucous membranes pink and moist. NECK: Trachea midline. No JVD. CARDIOVASCULAR: Regular rate and rhythm. No murmur appreciated. RESPIRATORY: No accessory muscle use. Clear to auscultation. Breath sounds equal bilaterally. GASTROINTESTINAL: Abdomen soft, non-tender, nondistended. Hepatic and splenic margins not palpable. MUSCULOSKELETAL: No obvious deformities. No clubbing. No cyanosis. No edema. NEUROLOGICAL: Awake and alert. No obvious cranial nerve deficits. Motor grossly within normal limits. Normal speech. Data Data Last Documented VS Vital Signs Date Time Temp Pulse Resp B/P (MAP) Pulse Ox O2 Delivery O2 Flow Rate FiO2 08/11/17 01:07 97.3 57 18 143/69 (93) 97 Room Air Orders Orders Psych Screen (08/10/17 19:12) Trazodone (Desyrel) (08/10/17 21:30) MDM Medical Decision Making Medical Screen Exam Complete: Yes Emergency Medical Condition: Yes Medical Record Reviewed: Yes Differential Diagnosis Mood disorder versus personality disorder versus adjustment reaction disorder Narrative Course 62-year-old female presents emergency department under a Holliday act as a transfer from [facility]. Patient appears without distress. Lab work is reviewed without acute concern. Patient remains medically cleared to undergo psychiatric screening for further evaluation and disposition. Mental health screening discussed with the patient. Psychiatric screen ordered. Diagnosis Primary Impression: Adjustment disorder with mixed disturbance of emotions and conduct Condition: Stable Noemí Luna Aug 10, 2017 21:17
[2017-08-10] MEDS ORDERED: traZODone HCL 100 MG TAB PO ONE (21:30)
[2017-08-11 01:07] VITALS: BP 143/69; PULSE 57; RESP 18; TEMP 97.3; O2SAT 97
[2017-08-11 05:14] VITALS: BP 118/74; PULSE 66; RESP 17; TEMP 96.7; O2SAT 98
[2017-08-11 10:56] VITALS: BP 121/73; PULSE 58; RESP 18; O2SAT 95
--- NOTE | 2017-08-11 14:11 | PD ---
History of Present Illness Chief Complaint: Psychiatric Symptoms Time Seen by Provider: 13:40 Travel History International Travel<30 Days: No Contact w/Intl Traveler<30days: No Known affected area: No Legal Status Legal Status: Holliday Act Holliday Act Signed By: DR. DEAN SHORE AT [facility] ED History of Present Illness: History of Present Illness HPI 62-year-old, female with history of bipolar disorder, alcohol use disorder who presents emergency department under Holliday act, transfer from [facility]. The patient alleges that she has been drinking for the past 5 -6 days, that she has written notes to her family member saying goodbye to them , and that she walked out of her apartment with the intention of walking into traffic as a suicidal attempt. Patient was medically clear [facility] and transferred to [facility] for disposition. Electronic medical record is reviewed. The patient has at least 6 prior psychiatric hospitalizations here at [facility] with the last one being in April 2017. Lab work from [facility] is reviewed. Her blood alcohol level is less than 10, positive toxicology for opiates. Patient has a monitor here and [facility] and has presented no behavioral dysregulation and no suicidality. Patient is seen. She is alert, oriented 4, dressed in hospital gown with fair hygiene and grooming. She is clinically sober with no evidence of any withdrawal symptoms at this time. She is very tearful. States that she feels very depressed and that she has no purpose in her life since her children are now and moved away. She reports feeling depressed, hopeless, irritable , decreased appetite, impaired sleep, anhedonia. She continues to report suicidal ideation although contracts for safety here in the hospital. There is no evidence of any hallucinations, no delusions and no paranoia. No analisa or hypomania. Decreased concentration and attention are noted. In terms of alcohol use she denies that she has been drinking on a regular basis and that she has only been drinking for the last 5-6 days. PFSH Past Medical History Autoimmune Disease: No Anxiety: Yes Depression: Yes Cancer: Yes (per pt mass on her left ovary) Cardiovascular Problems: Yes (per recent work up for chest pain at ) Chemotherapy: No Diabetes: No Endocrine: No Gastrointestinal Disorders: No Genitourinary: No Headaches: No Immune Disorder: No Implanted Vascular Access Dvce: No Musculoskeletal: No Neurologic: No Psychiatric: Yes (per pt been diagnosised with Bipolar when pt was 26 years of age) Reproductive: No Respiratory: No Radiation Therapy: No Seizures: Yes Thyroid Disease: No Ulcer: Yes (2 stomach ulcers) ?: Unknown Menopausal: Yes : 2 Para: 2 Miscarriage: 0 : 0 Tubal Ligation: Yes Past Surgical History Abdominal Surgery: No AICD: No Appendectomy: Yes Arteriovenous Shunt: No Cardiac Surgery: No Section: Yes (2x C-sections) Ear Surgery: No Endocrine Surgery: No Eye Surgery: No Gynecologic Surgery: Yes (cyst on ovaries, X2) Insulin Pump: No Joint Replacement: No Neurologic Surgery: No Oral Surgery: Yes (beginning to start with dentures) Pacemaker: No Thoracic Surgery: No Psychiatric History Psychiatric History Hx Psychiatric Treatment: PATIENT WAS LAST ADMITTED TO [facility] 04/12/[facility] TO 04/18/17 FOR BIPIOLAR DISORDER. She has at least 10 lifetime psychiatric admissions. One previous suicide attempt. Is followed by a primary care physician who does house calls. History of Inpatient Treatment: Yes Guns or firearms in home: No Social History Born and raised in [place]. since 2012 who is living with 3 other roommates. She is unemployed and does some volunteer work. 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 Hx Alcohol Use: No Hx Tobacco Use: Yes (4-5 CIGARETTES PER DAY) Hx Substance Use: Yes Substance Use Type: Alcohol, Marijuana, Prescription Medications, LSD-Mescaline Other Substances Used: The patient may be abusing prescription mediccations. Hx of Substance Use Treatment: No Family Psychiatric History Negative Allergies-Medications (Allergen,Severity, Reaction): Coded Allergies: No Known Allergies (Unverified , 08/10/17) Reported Meds & Prescriptions Reported Meds & Active Scripts Active Gabapentin 100 Mg Cap 100 Mg PO TID Trazodone (Trazodone HCl) 50 Mg Tab 100 Mg PO HS Reported Lamictal (Lamotrigine) 25 Mg Tab 50 Mg PO BID Tylenol (Acetaminophen) 325 Mg Tab 325 Mg PO DAILY Vistaril (Hydroxyzine Pamoate) 25 Mg Cap 50 Mg PO BID PRN Review of Systems Psychiatric: COMPLAINS OF: Depression, Suicidal Ideation Except as stated in HPI: all other systems reviewed are Neg Mental Status Examination Appearance: Appropriate Consciousness: Alert Orientation: x4 Motor Activity: Normal gait Speech: Hesitant (Low tone) Language: Adequate Fund of Knowledge: Adequate Attention and Concentration: Easily Distracted Memory: Unremarkable Mood: Sad, Irritable Affect: Other (Tearful) Thought Process & Associations: Intact, Logical, Goal directed Thought Content: Appropriate Hallucination Type: None Delusion Type: None Suicidal Ideation: Yes Suicidal Plan: No Suicidal Intention: No Homicidal Ideation: No Homicidal Plan: No Homicidal Intention: No Insight: Fair Judgment: Impulsive MDM Medical Decision Making Medical Record Reviewed: Yes Assessment/Plan 62-year-old, female with history of bipolar disorder, alcohol use disorder who presents emergency department under Holliday act, transfer from [facility]. The patient alleges that she has been drinking for the past 5 -6 days, that she has written notes to her family member saying goodbye to them , and that she walked out of her apartment with the intention of walking into traffic as a suicidal attempt however she slept and fell on the wet grass. The patient is reporting symptoms of depression including depressed mood, hopelessness, anhedonia, irritability, decreased concentration, impaired sleep, decreased appetite. She reports that she is medication compliant. The patient at this time meets criteria for inpatient psychiatric hospitalization for further observation, for safety and for stabilization. Orders Orders Psych Screen (08/10/17 19:12) Trazodone (Desyrel) (08/10/17 21:30) Diet Regular Basic (08/11/17 Breakfast) Results Vital Signs Date Time Temp Pulse Resp B/P (MAP) Pulse Ox O2 Delivery O2 Flow Rate FiO2 08/11/17 10:56 58 18 121/73 (89) 95 Room Air 08/11/17 05:14 96.7 66 17 118/74 (89) 98 Room Air 08/11/17 01:07 97.3 57 18 143/69 (93) 97 Room Air 08/10/17 20:08 98.3 78 16 113/65 (81) 96 Room Air 08/10/17 18:47 77 18 136/66 (89) 96 Room Air Diagnosis Primary Impression: Bipolar disorder, most recent episode depressed Additional Impression: Alcohol-induced mood disorder Admitting Information Admitting Physician Requests: Admit Condition: Stable Problem Qualifiers Urvashi Fontanez [employer] Aug 11, 2017 14:11
[2017-08-11] MEDS ORDERED: ALUMINUM/MAGNESIUM/SIMETH 30 ML CUP PO PRN (14:15)
[2017-08-11] MEDS ORDERED: ACETAMINOPHEN 325 MG TAB PO PRN (14:15)
[2017-08-11 16:39] VITALS: BP 120/64; PULSE 68; RESP 17; TEMP 98.6; O2SAT 96
[2017-08-11] MEDS: GABAPENTIN 100 MG CAP PO SCH (17:33)
[2017-08-11] MEDS ORDERED: traZODone HCL 50 MG TAB PO ONE (22:00)
[2017-08-12 05:57] VITALS: BP 133/59; PULSE 69; RESP 16; TEMP 98.3; O2SAT 98
[2017-08-12] MEDS: GABAPENTIN 100 MG CAP PO SCH ×3 (08:15→17:43)
[2017-08-12 10:52] LABS: BICARBONATE 29.2 MEQ/L (21.0-32.0); BLOOD UREA NITROGEN 17 MG/DL (7-18); CALCIUM 9.7 MG/DL (8.5-10.1); CHLORIDE 104 MEQ/L (98-107); CHOLESTEROL 210 MG/DL (120-200); CREATININE 0.78 MG/DL (0.50-1.00); GLOMERULAR FILTRATION RATE 75 ML/MIN (>89); GLUCOSE,RANDOM 85 MG/DL (74-106); SODIUM (NA) 141 MEQ/L (136-145)
[2017-08-12 11:22] LABS: CHOLESTEROL/ HDL RATIO 3.79 RATIO; HDL CHOLESTEROL 55.3 MG/DL (40.0-60.0); LDL CHOLESTEROL 122 MG/DL (0-99); TRIGLYCERIDES 162 MG/DL (42-150)
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
[2017-08-12] MEDS: lamoTRIgine 25 MG TAB PO SCH ×2 (14:21→21:54)
[2017-08-12 16:49] LABS: HEMOGLOBIN A1C 5.5 % (4.3-6.0)
--- NOTE | 2017-08-12 17:06 | PD.CONS ---
HPI Service [facility] Hospitalists Consult Requested By Reason for Consult Shingles with flare up Primary Care Physician No Primary Care Physician Diagnoses: History of Present Illness 62-year-old female with past medical history significant for shingles, depression, bipolar disorder, ovarian cyst, appendectomy, and who presented to [facility] on 08/10 with complaints of increase depression and suicidal thoughts. Patient was Holliday acted, medically cleared and subsequently transferred to [place] inpatient [facility]ry. [facility] has been consulted due to shingles outbreak. Patient is seen and examined in her room, reports that she will frequently have shingles outbreak and this sensation feels like she is about to have an outbreak. She denies any fevers, chills, nausea, vomiting, diarrhea, constipation, cough, shortness of breath or chest pains. Patient also reports that she has a ovarian cyst measuring 7 cm which she is in the process of possibly having this removed in the near future. She states that she is currently having surgery approved through her insurance. She reports taking Tylenol with codeine #3 about twice a day and sometimes will not necessarily require it 2 times a day. Smokes 1 pack of cigarettes per week, drinks alcohol about 6 times a week, last drink was this past Tuesday. She reports that she drinks alcohol but not to the point where she is completely intoxicated. She voices no other acute concerns or complaints at this moment. Review of Systems Except as stated in HPI: all other systems reviewed are Neg Past Family Social History Allergies: Coded Allergies: No Known Allergies (Unverified , 08/10/17) Past Medical History Bipolar disorder Depression Shingles Ovarian cyst Past Surgical History Appendectomy Cryo treatment of ovarian cyst Reported Medications Reported Meds & Active Scripts Active Gabapentin 100 Mg Cap 100 Mg PO TID Trazodone (Trazodone HCl) 50 Mg Tab 100 Mg PO HS Reported Lamictal (Lamotrigine) 25 Mg Tab 50 Mg PO BID Tylenol (Acetaminophen) 325 Mg Tab 325 Mg PO DAILY Vistaril (Hydroxyzine Pamoate) 25 Mg Cap 50 Mg PO BID PRN Active Ordered Medications Current Medications Medications (Trade) Dose Ordered Sig/Esvin Route Start Time Stop Time Status Last Admin (Tylenol) 650 mg Q4H PRN PO 08/11/17 14:15 (Milk Of Magnesia Liq) 30 ml DAILY PRN PO 08/11/17 14:15 (Mag-Al Plus Susp Liq) 30 ml Q6H PRN PO 08/11/17 14:15 (Neurontin) 100 mg TID PO 08/11/17 18:00 08/12/17 13:00 (LaMICtal) 50 mg BID PO 08/12/17 13:15 08/12/17 14:21 (Atarax) 50 mg Q6H PRN PO 08/12/17 13:15 (Desyrel) 50 mg HS PO 08/12/17 21:00 (Tylenol-Codeine #3) 1 tab Q12HR PRN PO 08/12/17 17:30 (Valtrex) 1,000 mg Q8HR PO 08/12/17 22:00 08/19/17 21:59 Family History Noncontributory Social History Tobacco: smokes 1 pack per week Alcohol: drinks 6 days a week last drink was Tuesday Denies any recent illicit drug use Physical Exam Vital Signs Vital Signs Date Time Temp Pulse Resp B/P (MAP) Pulse Ox O2 Delivery O2 Flow Rate FiO2 08/12/17 05:57 98.3 69 16 133/59 (83) 98 Physical Exam GENERAL: This is a well-nourished, well-developed patient, in no apparent distress. SKIN: No ecchymoses. Cool and dry. Right lower back with 3 very small erythematous spots <1cm, no vesicle or blister noted HEAD: Atraumatic. Normocephalic. EYES: Pupils equal round and reactive. Extraocular motions intact. No scleral icterus. No injection or drainage. ENT: Nose without bleeding, purulent drainage or septal hematoma. Throat without erythema, tonsillar hypertrophy or exudate. Uvula midline. Airway patent. NECK: Trachea midline. No JVD. CARDIOVASCULAR: Regular rate and rhythm without murmurs, gallops, or rubs. RESPIRATORY: Clear to auscultation. Breath sounds equal bilaterally. No wheezes , rales, or rhonchi. GASTROINTESTINAL: Abdomen soft, non-tender, nondistended. No guarding. MUSCULOSKELETAL: Extremities without clubbing, cyanosis, or edema. No joint tenderness, effusion, or edema noted. NEUROLOGICAL: Awake and alert. Cranial nerves II through XII gross intact. Motor and sensory grossly within normal limits. Five out of 5 muscle strength in all muscle groups. Normal speech. Laboratory Laboratory Tests Test 08/12/17 08:55 Blood Urea Nitrogen 17 Creatinine 0.78 Random Glucose 85 Calcium Level 9.7 Sodium Level 141 Potassium Level 4.6 Chloride Level 104 Carbon Dioxide Level 29.2 Anion Gap 8 Estimat Glomerular Filtration Rate 75 Triglycerides Level 162 Cholesterol Level 210 LDL Cholesterol 122 HDL Cholesterol 55.3 Cholesterol/HDL Ratio 3.79 Vitamin B12 Level 397 25-Hydroxy Vitamin D Total 21.3 Result Diagram: 08/12/17 0855 Assessment and Plan Assessment and Plan 62-year-old female with past medical history significant for shingles, depression, bipolar disorder, ovarian cyst, appendectomy, and who presented to [facility] on 08/10 with complaints of increase depression and suicidal thoughts. Patient was Holliday acted, medically cleared and subsequently transferred to [facility] inpatient [facility]. [facility] has been consulted due to shingles outbreak. Depression SI -Treatment plan by primary team Herpes zoster -Reports she has outbreaks from time to time, Valtrex 1 g 7 days -Can keep dressing on for skin sensitivity and discomfort, continue gabapentin Left ovarian mass -Patient reports left ovarian mass with plans to surgically remove in the near future once approved by her insurance. -Will continue Tylenol with Codeine #3, nurse has called patient's pharmacy and this medication was recently filled not too long ago. -Monitor for oversedation Tobacco and alcohol abuse -Counseled on importance to quit -Monitor of possible DT'd DVT prophylaxis-ambulation Discussed with nurse. Thank you for this consultation, will continue to follow along. Fe Rice Aug 12, 2017 17:06
[2017-08-12 17:11] VITALS: BP 117/71; PULSE 99; RESP 16; TEMP 98
[2017-08-12] MEDS: traZODone HCL 50 MG TAB PO SCH (21:54)
[2017-08-12] MEDS: valACYclovir HCL 500 MG TAB PO SCH (21:57)
[2017-08-13 05:46] VITALS: BP 132/70; PULSE 54; RESP 16; TEMP 97.4; O2SAT 96
[2017-08-13] MEDS: valACYclovir HCL 500 MG TAB PO SCH ×3 (06:00→21:32)
[2017-08-13] MEDS: ACETAMINOPHEN/CODEINE 300 MG/30 MG TAB PO PRN ×2 (06:10→21:32)
[2017-08-13] MEDS: GABAPENTIN 100 MG CAP PO SCH ×3 (08:07→17:53)
[2017-08-13] MEDS: lamoTRIgine 25 MG TAB PO SCH ×2 (08:07→21:00)
--- NOTE | 2017-08-13 08:16 | HHI.PYPN ---
Subjective Remarks Reviewed electronic medical record, labs, discussed case with staff. Staff advised that per medical patient has been diagnosed with shingles. She does have a history of shingles. Upon examination of her back a light rash along the single dermatome is noted on the left distal quadrant of her back just superior to the flank. Patient's mood is good her affect is euthymic. She reports that she slept "good". And has a good appetite. She denies any side effects and no psycho motor abnormalities are noted. She has been compliant with her meds. She denies suicidal ideation, homicidal ideation, auditory or visual hallucinations. I can elicit no delusional material. Patient has been moved to [place] for seclusion and light of the shingles. Mental Status Examination Appearance: Appropriate Consciousness: Alert Orientation: x4 Motor Activity: Normal gait Speech: Unremarkable Language: Adequate Fund of Knowledge: Adequate Attention and Concentration: Easily Distracted Memory: Unremarkable Mood: Sad Affect: Sad, Other (Tearful) Thought Process & Associations: Intact, Logical, Goal directed Thought Content: Appropriate Hallucination Type: None Delusion Type: None Suicidal Ideation: Yes Suicidal Plan: Yes Suicidal Intention: Yes Homicidal Ideation: No Homicidal Plan: No Homicidal Intention: No Insight: Fair Judgment: Impulsive Results Labs Test 08/12/17 08:55 Blood Urea Nitrogen 17 MG/DL Creatinine 0.78 MG/DL Random Glucose 85 MG/DL Calcium Level 9.7 MG/DL Sodium Level 141 MEQ/L Potassium Level 4.6 MEQ/L Chloride Level 104 MEQ/L Carbon Dioxide Level 29.2 MEQ/L Anion Gap 8 MEQ/L Estimat Glomerular Filtration Rate 75 ML/MIN Hemoglobin A1c 5.5 % Triglycerides Level 162 MG/DL Cholesterol Level 210 MG/DL LDL Cholesterol 122 MG/DL HDL Cholesterol 55.3 MG/DL Cholesterol/HDL Ratio 3.79 RATIO Vitamin B12 Level 397 PG/ML 25-Hydroxy Vitamin D Total 21.3 ng/ML Vitals/IOs Vital Signs Date Time Temp Pulse Resp B/P (MAP) Pulse Ox O2 Delivery O2 Flow Rate FiO2 08/13/17 05:46 97.4 54 16 132/70 (90) 96 08/11/17 10:56 Room Air Assessment & Plan Problem List: (1) Bipolar disorder, most recent episode depressed ICD Codes: F31.30 - Bipolar disorder, current episode depressed, mild or moderate severity, unspecified Status: Acute Assessment & Plan Estimated LOS: days Justification for Cont. Inpt. Moving this patient to a lower level of care would result in decompensation. Hortensia Hicks Aug 13, 2017 08:16
--- NOTE | 2017-08-13 08:18 | HHI.PYPN ---
Subjective Remarks Reviewed electronic medical record, labs, discussed case with staff. Staff advised that per medical patient has been diagnosed with shingles. She does have a history of shingles. Upon examination of her back a light rash along the single dermatome is noted on the left distal quadrant of her back just superior to the flank. Patient's mood is good her affect is euthymic. She reports that she slept "good". And has a good appetite. She denies any side effects and no psycho motor abnormalities are noted. She has been compliant with her meds. She denies suicidal ideation, homicidal ideation, auditory or visual hallucinations. I can elicit no delusional material. Patient has been moved to [facility] for seclusion and light of the shingles. Mental Status Examination Appearance: Appropriate Consciousness: Alert Orientation: x4 Motor Activity: Normal gait Speech: Unremarkable Language: Adequate Fund of Knowledge: Adequate Attention and Concentration: Easily Distracted Memory: Unremarkable Mood: Sad Affect: Sad, Other (Tearful) Thought Process & Associations: Intact, Logical, Goal directed Thought Content: Appropriate Hallucination Type: None Delusion Type: None Suicidal Ideation: Yes Suicidal Plan: Yes Suicidal Intention: Yes Homicidal Ideation: No Homicidal Plan: No Homicidal Intention: No Insight: Fair Judgment: Impulsive Results Labs Test 08/12/17 08:55 Blood Urea Nitrogen 17 MG/DL Creatinine 0.78 MG/DL Random Glucose 85 MG/DL Calcium Level 9.7 MG/DL Sodium Level 141 MEQ/L Potassium Level 4.6 MEQ/L Chloride Level 104 MEQ/L Carbon Dioxide Level 29.2 MEQ/L Anion Gap 8 MEQ/L Estimat Glomerular Filtration Rate 75 ML/MIN Hemoglobin A1c 5.5 % Triglycerides Level 162 MG/DL Cholesterol Level 210 MG/DL LDL Cholesterol 122 MG/DL HDL Cholesterol 55.3 MG/DL Cholesterol/HDL Ratio 3.79 RATIO Vitamin B12 Level 397 PG/ML 25-Hydroxy Vitamin D Total 21.3 ng/ML Vitals/IOs Vital Signs Date Time Temp Pulse Resp B/P (MAP) Pulse Ox O2 Delivery O2 Flow Rate FiO2 08/13/17 05:46 97.4 54 16 132/70 (90) 96 08/11/17 10:56 Room Air Assessment & Plan Problem List: (1) Bipolar disorder, most recent episode depressed ICD Codes: F31.30 - Bipolar disorder, current episode depressed, mild or moderate severity, unspecified Status: Acute Assessment & Plan Estimated LOS: Patient states that she does not feel suicidal "while here". We will continue with treatment plan. Justification for Cont. Inpt. Moving this patient to a lower level of care would likely result in a decompensation. Hortensia Hicks Aug 13, 2017 08:18
[2017-08-13] MEDS: MAGNESIUM HYDROXIDE SUSP 30 ML CUP PO PRN (10:10)
[2017-08-13 18:10] VITALS: BP 133/74; PULSE 71; RESP 18; TEMP 98.3
[2017-08-13] MEDS: hydrOXYzine HCL 50 MG TAB PO PRN (21:01)
[2017-08-13] MEDS: traZODone HCL 50 MG TAB PO SCH (21:01)
[2017-08-14] MEDS: valACYclovir HCL 500 MG TAB PO SCH ×3 (05:56→22:00)
[2017-08-14 06:00] VITALS: BP 92/58; PULSE 62; RESP 16; TEMP 97.8; O2SAT 97
[2017-08-14] MEDS: GABAPENTIN 100 MG CAP PO SCH ×3 (08:20→17:36)
[2017-08-14] MEDS: lamoTRIgine 25 MG TAB PO SCH ×2 (08:20→20:29)
--- NOTE | 2017-08-14 13:03 | HHI.PYPN ---
Subjective Remarks Patient seen for follow, chart reviewed. Discussion nursing staff reported the patient currently on contact precautions due to active shingles, denied any suicide ideations this morning. Patient was found sitting in hospital bed noted B, cooperative. Patient states that she continues to report feeling depressed, continues to endorse active suicide ideations with no specific plan. Patient states that she is feeling a bit better this afternoon states that her only reason to live for her sons. Patient reports her sleep has been "on and off". Patient denies any perceptual disturbances or delusions. Review of Systems Except as stated in HPI: all other systems reviewed are Neg Mental Status Examination Appearance: Appropriate Consciousness: Alert Orientation: x4 Motor Activity: Normal gait Speech: Unremarkable Language: Adequate Fund of Knowledge: Adequate Attention and Concentration: Easily Distracted Memory: Unremarkable Mood: Sad Affect: Sad, Other (Tearful) Thought Process & Associations: Intact, Logical, Goal directed Thought Content: Appropriate Hallucination Type: None Delusion Type: None Suicidal Ideation: Yes Suicidal Plan: No Suicidal Intention: Yes Homicidal Ideation: No Homicidal Plan: No Homicidal Intention: No Insight: Fair Judgment: Impulsive Results Vitals/IOs Vital Signs Date Time Temp Pulse Resp B/P (MAP) Pulse Ox O2 Delivery O2 Flow Rate FiO2 08/14/17 06:00 97.8 62 16 92/58 (69) 97 08/11/17 10:56 Room Air Assessment & Plan Problem List: (1) Bipolar disorder, most recent episode depressed ICD Codes: F31.30 - Bipolar disorder, current episode depressed, mild or moderate severity, unspecified Status: Acute Assessment & Plan Patient this time continues endorse feeling depressed, continued with active suicidal ideations. We will start lurasidone 20 mg p.o. daily for bipolar depression, continue rest of medications. Continue recommendations as required medical team. Patient to continue to monitor mood and behavior. Discharge planning in progress. Justification for Cont. Inpt. At risk for further decompensation if at lower level of care Ra Zamorano MD Aug 14, 2017 13:03
[2017-08-14] MEDS ORDERED: PILL SPLITTER OTHER PRN (13:45)
[2017-08-14] MEDS: LURASIDONE 40 MG TAB PO SCH (14:00)
[2017-08-14] MEDS: POLYETHYLENE GLYCOL 17 GM PKG PO SCH (15:00)
--- NOTE | 2017-08-14 16:06 | HHI.PR ---
Subjective Remarks Follow-up visit for Herpes zoster. Patient seen and examined in her room, she denies any fevers, chills, nausea, vomiting, diarrhea, GUNN or SOB. She repots constipation and states that she has not had a BM in three days, eating fine, with no nausea, denies abdominal pain or discomfort. Repots that her back has increased pain with light tough due to shingles. Reports that at one time she was taking 600mg of Gabapentin for pain. Objective Vitals Vital Signs Date Time Temp Pulse Resp B/P (MAP) Pulse Ox O2 Delivery O2 Flow Rate FiO2 08/14/17 06:00 97.8 62 16 92/58 (69) 97 08/13/17 18:10 98.3 71 18 133/74 (93) I/O 08/13/17 08/13/17 08/13/17 08/14/17 08/14/17 08/14/17 07:00 15:00 23:00 07:00 15:00 23:00 Intake Total 240 ml Balance 240 ml Intake Oral 240 ml Result Diagram: 08/12/17 0855 Objective Remarks GENERAL: This is a well-nourished, well-developed patient, in no apparent distress. SKIN: No ecchymoses. Cool and dry. Right lower back with 3 very small erythematous spots <1cm, no vesicle or blister noted, Erythema underneath and on left side with marked delineation from prior dressing. HEAD: Atraumatic. EYES: Pupils equal round and reactive. No scleral icterus. No injection or drainage. ENT: Nose without bleeding, purulent drainage or septal hematoma. Throat without erythema, tonsillar hypertrophy or exudate. Uvula midline. Airway patent. NECK: Trachea midline. No JVD. CARDIOVASCULAR: Regular rate and rhythm without murmurs, gallops, or rubs. RESPIRATORY: Clear to auscultation. Breath sounds equal bilaterally. No wheezes , rales, or rhonchi. GASTROINTESTINAL: Abdomen soft, non-tender, nondistended. No guarding. MUSCULOSKELETAL: Extremities without clubbing, cyanosis, or edema. No joint tenderness, effusion, or edema noted. NEUROLOGICAL: Awake and alert.Motor and sensory grossly within normal limits. Five out of 5 muscle strength in all muscle groups. Normal speech. A/P Assessment and Plan 62-year-old female with past medical history significant for shingles, depression, bipolar disorder, ovarian cyst, appendectomy, and who presented to [facility] on 08/10 with complaints of increase depression and suicidal thoughts. Patient was Holliday acted, medically cleared and subsequently transferred to [place] inpatient psychiatry. [facility] has been consulted due to shingles outbreak. Depression SI -Treatment plan by primary team Herpes zoster -continue Valtrex 1 g 7 days -encouraged to keep open to air as erythema surrounding this is likely due to dressing adhesive. - Increase gabapentin to 200mg TID Left ovarian mass -Patient reports left ovarian mass with plans to surgically remove in the near future once approved by her insurance. -Tylenol with Codeine #3 PRN for pain (nurse has called patient's pharmacy and this medication was recently filled not too long ago.) -Monitor for oversedation Constipation -Likely secondary to Tylenol with Codeine, patient repots she takes MiraLAX daily at home, resume. Tobacco and alcohol abuse -Counseled on importance to quit -Monitor of possible DT'd DVT prophylaxis-ambulation Discussed with nurse. Fe Rice Aug 14, 2017 16:06
[2017-08-14 18:15] VITALS: BP 116/57; PULSE 64; RESP 16; TEMP 98.1; O2SAT 96
[2017-08-14] MEDS: traZODone HCL 50 MG TAB PO SCH (20:29)
[2017-08-14] MEDS: ACETAMINOPHEN/CODEINE 300 MG/30 MG TAB PO PRN (20:29)
[2017-08-15] MEDS: valACYclovir HCL 500 MG TAB PO SCH ×3 (05:10→20:14)
[2017-08-15 06:18] VITALS: BP 114/56; PULSE 60; RESP 15; TEMP 98; O2SAT 94
[2017-08-15] MEDS: MAGNESIUM HYDROXIDE SUSP 30 ML CUP PO PRN (06:31)
[2017-08-15] MEDS: lamoTRIgine 25 MG TAB PO SCH ×2 (08:15→20:13)
[2017-08-15] MEDS: ACETAMINOPHEN/CODEINE 300 MG/30 MG TAB PO PRN ×2 (08:16→20:14)
[2017-08-15] MEDS: LURASIDONE 40 MG TAB PO SCH (08:16)
[2017-08-15] MEDS: POLYETHYLENE GLYCOL 17 GM PKG PO SCH (08:17)
[2017-08-15] MEDS: GABAPENTIN 100 MG CAP PO SCH ×3 (08:17→17:55)
[2017-08-15] MEDS ORDERED: POLYETHYLENE GLYCOL 17 GM PKG PO SCH (09:00)
--- NOTE | 2017-08-15 10:12 | HHI.PYPN ---
Subjective Remarks Patient seen for follow up, chart reviewed. Discussion wishes to reported patient continues to endorse suicidal ideations last night compliant with medications. Patient was found sitting in hospital chair noted B, cooperative. Patient states that she has been feeling "the same" stating that she woke up "down" and that he continues to feel overwhelmed with anything. Patient states "I feel sorry I woke up" continues endorse suicide ideations but states that he tends to improve throughout the day. Patient denies any perceptual service of delusions. Patient denies any adverse drug reactions current treatment regimen. Review of Systems Except as stated in HPI: all other systems reviewed are Neg Mental Status Examination Appearance: Appropriate Consciousness: Alert Orientation: x4 Motor Activity: Normal gait Speech: Unremarkable Language: Adequate Fund of Knowledge: Adequate Attention and Concentration: Easily Distracted Memory: Unremarkable Mood: Sad Affect: Sad, Other (Tearful) Thought Process & Associations: Intact, Logical, Goal directed Thought Content: Appropriate Hallucination Type: None Delusion Type: None Suicidal Ideation: Yes Suicidal Plan: No Suicidal Intention: Yes Homicidal Ideation: No Homicidal Plan: No Homicidal Intention: No Insight: Fair Judgment: Impulsive Results Vitals/IOs Vital Signs Date Time Temp Pulse Resp B/P (MAP) Pulse Ox O2 Delivery O2 Flow Rate FiO2 08/15/17 06:18 98.0 60 15 114/56 (75) 94 08/11/17 10:56 Room Air Intake and Output 08/15/17 08/15/17 08/16/17 08:00 16:00 00:00 Intake Total 480 ml Balance 480 ml Assessment & Plan Problem List: (1) Bipolar disorder, most recent episode depressed ICD Codes: F31.30 - Bipolar disorder, current episode depressed, mild or moderate severity, unspecified Status: Acute Assessment & Plan Patient this time continues report feeling depressed continues endorse suicide ideations. Patient recently started on lurasidone 20 mg p.o. daily, we will continue current treatment regimen. Continue to monitor mood and behavior. Continue recommendations as per prior medical team. Discharge planning in progress. Justification for Cont. Inpt. At risk for further decompensation if at lower level of care Ra Zamorano MD Aug 15, 2017 10:12
--- NOTE | 2017-08-15 13:27 | HHI.PR ---
Subjective Remarks Follow-up herpes zoster and constipation, patient seen and examined in room sitting on side of bed watching TV. She repots that her pain has been better and she was able to sleep last night more comfortably. She also repots moving her bowels. Denies any fevers, chills, nausea, vomiting, headaches, or throat pain. Nurse does not repot any complaints or concerns. Objective Vitals Vital Signs Date Time Temp Pulse Resp B/P (MAP) Pulse Ox O2 Delivery O2 Flow Rate FiO2 08/15/17 06:18 98.0 60 15 114/56 (75) 94 08/14/17 18:15 98.1 64 16 116/57 (76) 96 I/O 08/14/17 08/14/17 08/14/17 08/15/17 08/15/17 08/15/17 07:00 15:00 23:00 07:00 15:00 23:00 Intake Total 1200 ml 720 ml Balance 1200 ml 720 ml Intake Oral 1200 ml 720 ml # Voids 4 1 Result Diagram: 08/12/17 0855 Objective Remarks GENERAL: This is a well-nourished, well-developed patient, in no apparent distress. SKIN: No ecchymoses. Cool and dry. Right lower back with 3 very small erythematous spots <1cm, no vesicle or blister noted, Erythema underneath and on left side with marked delineation from prior dressing has improved. HEAD: Atraumatic. EYES: Pupils equal round. No scleral icterus. No injection or drainage. ENT: Nose without bleeding, purulent drainage or septal hematoma. Throat without erythema, tonsillar hypertrophy or exudate. Uvula midline. Airway patent. NECK: Trachea midline. No JVD. CARDIOVASCULAR: Regular rate and rhythm without murmurs, gallops, or rubs. RESPIRATORY: Clear to auscultation. Breath sounds equal bilaterally. No wheezes , rales, or rhonchi. GASTROINTESTINAL: Abdomen soft, non-tender, nondistended. No guarding. MUSCULOSKELETAL: Extremities without clubbing, cyanosis, or edema. NEUROLOGICAL: Awake and alert. Motor and sensory grossly within normal limits. Normal speech. A/P Assessment and Plan 62-year-old female with past medical history significant for shingles, depression, bipolar disorder, ovarian cyst, appendectomy, and who presented to [facility] on 08/10 with complaints of increase depression and suicidal thoughts. Patient was Holliday acted, medically cleared and subsequently transferred to [place] inpatient psychiatry. [facility] has been consulted due to shingles outbreak. Depression SI -Treatment plan by primary team Herpes zoster -continue Valtrex 1 g 7 days -encouraged to keep open to air as erythema surrounding this is likely due to dressing adhesive. - gabapentin to 200mg TID, patient repots better pain control Left ovarian mass -Patient reports left ovarian mass with plans to surgically remove in the near future once approved by her insurance. -Tylenol with Codeine #3 PRN for pain (nurse has called patient's pharmacy and this medication was recently filled not too long ago.) -Monitor for oversedation Constipation -Likely secondary to Tylenol with Codeine - +BM, continue MiraLAX Tobacco and alcohol abuse -Counseled on importance to quit -Monitor of possible DT'd DVT prophylaxis-ambulation Discussed with nurse. Fe Rice Aug 15, 2017 13:27
[2017-08-15 18:00] VITALS: BP 113/60; PULSE 63; RESP 16; TEMP 97.8; O2SAT 96
[2017-08-15] MEDS: traZODone HCL 50 MG TAB PO SCH (20:14)
[2017-08-16] MEDS: valACYclovir HCL 500 MG TAB PO SCH ×3 (05:23→20:00)
[2017-08-16 05:31] VITALS: BP 120/57; PULSE 60; RESP 18; TEMP 97.9; O2SAT 97
[2017-08-16] MEDS: lamoTRIgine 25 MG TAB PO SCH ×2 (08:13→20:00)
[2017-08-16] MEDS: ACETAMINOPHEN/CODEINE 300 MG/30 MG TAB PO PRN ×2 (08:13→20:00)
[2017-08-16] MEDS: POLYETHYLENE GLYCOL 17 GM PKG PO SCH (08:14)
[2017-08-16] MEDS: LURASIDONE 40 MG TAB PO SCH (08:14)
[2017-08-16] MEDS: GABAPENTIN 100 MG CAP PO SCH ×3 (08:14→18:00)
--- NOTE | 2017-08-16 15:36 | HHI.PR ---
Subjective Remarks Follow-up herpes zoster and constipation. Patient seen and examined. Patient states she feels well today. Reports her rash pain is well controlled. She denies any fever or chills. Denies any chest pain or dyspnea. She denies any N /V or abdominal pain. She is moving her bowels. Objective Vitals Vital Signs Date Time Temp Pulse Resp B/P (MAP) Pulse Ox O2 Delivery O2 Flow Rate FiO2 08/16/17 05:31 97.9 60 18 120/57 (78) 97 08/15/17 18:00 97.8 63 16 113/60 (77) 96 I/O 08/15/17 08/15/17 08/15/17 08/16/17 08/16/17 08/16/17 06:59 14:59 22:59 06:59 14:59 22:59 Intake Total 1440 ml 720 ml 240 ml 1080 ml Balance 1440 ml 720 ml 240 ml 1080 ml Intake Oral 1440 ml 720 ml 240 ml 1080 ml # Voids 1 1 1 Result Diagram: 08/12/17 0855 Objective Remarks GENERAL: This is a well-nourished, well-developed elderly female patient, in no apparent distress. Awake and alert. SKIN: No ecchymoses. Cool and dry. Right lower back with resolution of shingles rash except for faint area of erythema noted, no lesions. HEAD: Normocephalic. Atraumatic. EYES: Pupils equal round. No scleral icterus. No injection or drainage. ENT: Nose without bleeding or purulent drainage. Airway patent. MMM. NECK: Trachea midline. No JVD. CARDIOVASCULAR: Regular rate and rhythm without murmurs, gallops, or rubs. RESPIRATORY: Clear to auscultation. Breath sounds equal bilaterally. No wheezes , rales, or rhonchi. GASTROINTESTINAL: Abdomen soft, non-tender, nondistended. No guarding. MUSCULOSKELETAL: Extremities without clubbing, cyanosis, or edema. NEUROLOGICAL: Awake and alert. Motor and sensory grossly within normal limits. Normal speech. Medications and IVs Current Medications Medications (Trade) Dose Ordered Sig/Esvin Route Start Time Stop Time Status Last Admin (Tylenol) 650 mg Q4H PRN PO 08/11/17 14:15 (Milk Of Magnesia Liq) 30 ml DAILY PRN PO 08/11/17 14:15 08/15/17 06:31 (Mag-Al Plus Susp Liq) 30 ml Q6H PRN PO 08/11/17 14:15 (LaMICtal) 50 mg BID PO 08/12/17 13:15 08/16/17 08:13 (Atarax) 50 mg Q6H PRN PO 08/12/17 13:15 08/13/17 21:01 (Desyrel) 50 mg HS PO 08/12/17 21:00 08/15/17 20:14 (Tylenol-Codeine #3) 1 tab Q12HR PRN PO 08/12/17 17:30 08/16/17 08:13 (Valtrex) 1,000 mg Q8HR PO 08/12/17 22:00 08/19/17 21:59 08/16/17 14:30 (Latuda) 20 mg DAILY PO 08/14/17 14:00 08/16/17 08:14 (Pill Splitter) 1 ea UNSCH PRN OTHER 08/14/17 13:45 (Neurontin) 200 mg TID PO 08/14/17 18:00 08/16/17 14:29 (Miralax) 17 gm DAILY PO 08/14/17 15:00 08/16/17 08:14 A/P Assessment and Plan 62-year-old female with past medical history significant for shingles, depression, bipolar disorder, ovarian cyst, appendectomy, and who presented to [facility] on 08/10 with complaints of increase depression and suicidal thoughts. Patient was Holliday acted, medically cleared and subsequently transferred to [place] inpatient psychiatry. [facility] has been consulted due to shingles outbreak. Depression SI -Management per psychiatric team Herpes zoster, near resolution -continue Valtrex 1 g 7 days -encouraged to keep open to air as erythema surrounding this is likely due to dressing adhesive, much improved -continue gabapentin 200mg TID Left ovarian mass -Patient reports left ovarian mass with plans to surgically remove in the near future once approved by her insurance. -Tylenol with Codeine #3 PRN for pain (nurse has called patient's pharmacy and this medication was recently filled not too long ago.) -Monitor for oversedation Constipation -Likely secondary to Tylenol with Codeine -(+)BM, continue MiraLAX Vitamin D deficiency -Vitamin D replacement -patient will need to have level rechecked by PCP in 2-3 mos Dyslipidemia -check LFTs -will discuss initiation of statin therapy if LFTs WNL Tobacco and alcohol abuse -Counseled on importance to quit -Monitor of possible DT's DVT prophylaxis-ambulation Kiley Rodriguez Aug 16, 2017 15:36
--- NOTE | 2017-08-16 15:45 | HHI.PYPN ---
Subjective Remarks Patient seen for follow up; chart reviewed. Discussion with nursing reported patient with improvement in mood. Patient was found sitting in hospital bed noted B, cooperative. Patient states that she has has been feeling "better" and feeling pleased that this morning she did not have thoughts of wanting to be . Patient continues to report intermittent suicide ideations throughout the day but states she is trying to cope with a better perspective and mindset to keep her from having continue suicide ideations. Patient reports tolerating medications well. Patient reports her pain also is improving. Review of Systems Except as stated in HPI: all other systems reviewed are Neg Mental Status Examination Appearance: Appropriate Consciousness: Alert Orientation: x4 Motor Activity: Normal gait Speech: Unremarkable Language: Adequate Fund of Knowledge: Adequate Attention and Concentration: Easily Distracted Memory: Unremarkable Mood: Sad (Less so today) Affect: Sad (Less so today) Thought Process & Associations: Intact, Logical, Goal directed Thought Content: Appropriate Hallucination Type: None Delusion Type: None Suicidal Ideation: Yes (Intermittent) Suicidal Plan: No Suicidal Intention: Yes (Less so today) Homicidal Ideation: No Homicidal Plan: No Homicidal Intention: No Insight: Fair Judgment: Impulsive Results Vitals/IOs Vital Signs Date Time Temp Pulse Resp B/P (MAP) Pulse Ox O2 Delivery O2 Flow Rate FiO2 08/16/17 05:31 97.9 60 18 120/57 (78) 97 Intake and Output 08/16/17 08/16/17 08/17/17 08:00 16:00 00:00 Intake Total 240 ml 1080 ml Balance 240 ml 1080 ml Assessment & Plan Problem List: (1) Bipolar disorder, most recent episode depressed ICD Codes: F31.30 - Bipolar disorder, current episode depressed, mild or moderate severity, unspecified Status: Acute Assessment & Plan Patient this time continues report feeling depressed but noted to have improvement of mood, but continues to have intermittent suicide ideations but less intense. Continue current treatment continue to monitor mood and behavior. Discharge planning in progress. Justification for Cont. Inpt. At risk for further decompensation if at lower level of care Discharge Planning Back to her residence was psychiatrically stable. Ra Zamorano MD Aug 16, 2017 15:45
[2017-08-16 17:41] LABS: TOTAL BILIRUBIN ADULT 0.2 MG/DL (0.2-1.0); TOTAL PROTEIN 8.2 GM/DL (6.4-8.2)
[2017-08-16 17:42] LABS: ALBUMIN 4.4 GM/DL (3.4-5.0); DIRECT BILIRUBIN ADULT 0.1 MG/DL (0.0-0.2); INDIRECT BILIRUBIN 0.1 MG/DL (0.0-0.8)
[2017-08-16 18:05] VITALS: BP 122/65; PULSE 63; RESP 16; TEMP 97.4; O2SAT 98
[2017-08-16] MEDS: traZODone HCL 50 MG TAB PO SCH (20:02)
[2017-08-17] MEDS: hydrOXYzine HCL 50 MG TAB PO PRN (03:54)
[2017-08-17 05:33] VITALS: BP 134/62; PULSE 60; RESP 16; TEMP 97.9; O2SAT 93
[2017-08-17] MEDS: valACYclovir HCL 500 MG TAB PO SCH ×3 (05:58→20:41)
[2017-08-17] MEDS: POLYETHYLENE GLYCOL 17 GM PKG PO SCH (09:00)
[2017-08-17] MEDS: lamoTRIgine 25 MG TAB PO SCH ×2 (09:00→20:40)
[2017-08-17] MEDS: CHOLECALCIFEROL (VIT D3) 1000 UNIT TAB PO SCH (09:00)
[2017-08-17] MEDS: GABAPENTIN 100 MG CAP PO SCH ×3 (09:00→18:00)
--- NOTE | 2017-08-17 09:57 | PD.TTN ---
Patient Problems 1. Discharge planning 2. Medication compliance 3. Knowledge deficit 4. Lack of coping skills Progress Toward Goals Provider Present: Dr. Peter Zamorano Provider Input: 08/15/2017; patient medication is being address Nurse(s) Present: RN Nurse(s) Input: 08/15/2017; patient is taking her medication, compliant with treatment; continues to be depressed with suicidal thoughts Psychiatric Counselors Present: RICARDO Jensen Psych Therapist Input: 08/15/2017; counselor will address/review treat goals with patient Group Spec/RT/OT/HERNANDEZ Present: Star Knutson OT Group Spec/RT/OT/HERNANDEZ Input: 08/15/2017; patient has been medically unable to attend groups Documentation Scribe: Marlen Adams Aug 17, 2017 09:57
[2017-08-17] MEDS: ACETAMINOPHEN/CODEINE 300 MG/30 MG TAB PO PRN ×2 (10:00→23:03)
--- NOTE | 2017-08-17 10:14 | HHI.PYPN ---
Subjective Remarks Patient seen for follow, chart reviewed. Discussion nursing staff reported the patient has been having poor sleep, and less evening had written along handwritten note stating that she had been feeling very depressed, hopeless, suicidal. Patient was found sitting hospital bed noted B, cooperative. Patient states that she had been feeling "not good" stating that she woke up last evening around 3 AM and experience which she usually feels when she wakes up which is hopelessness, having thoughts of not wanting to be alive and feeling depressed. Patient states feeling anxious this morning due to having had this experience this evening and continues report feeling depressed at this time. Review of Systems Except as stated in HPI: all other systems reviewed are Neg Mental Status Examination Appearance: Appropriate Consciousness: Alert Orientation: x4 Motor Activity: Normal gait Speech: Unremarkable Language: Adequate Fund of Knowledge: Adequate Attention and Concentration: Easily Distracted Memory: Unremarkable Mood: Sad Affect: Sad Thought Process & Associations: Intact, Logical, Goal directed Thought Content: Appropriate Hallucination Type: None Delusion Type: None Suicidal Ideation: Yes (Intermittent) Suicidal Plan: No Suicidal Intention: Yes (Less so today) Homicidal Ideation: No Homicidal Plan: No Homicidal Intention: No Insight: Fair Judgment: Impulsive Results Vitals/IOs Vital Signs Date Time Temp Pulse Resp B/P (MAP) Pulse Ox O2 Delivery O2 Flow Rate FiO2 08/17/17 05:33 97.9 60 16 134/62 (86) 93 Intake and Output 08/17/17 08/17/17 08/18/17 08:00 16:00 00:00 Intake Total 720 ml Balance 720 ml Assessment & Plan Problem List: (1) Bipolar disorder, most recent episode depressed ICD Codes: F31.30 - Bipolar disorder, current episode depressed, mild or moderate severity, unspecified Status: Acute Assessment & Plan Patient this time continues to endorse feeling depressed, along with continue suicide ideations and hopelessness. Patient appears to have intermittent episodes of hopelessness and particularly when she has difficulty with sleep. We will increase Latuda to 40 mg p.o. daily, stop trazodone and start zolpidem 5 mg nightly for insomnia. Continue to monitor mood and behavior. Discharge planning in progress. Justification for Cont. Inpt. At risk for further decompensation if at lower level of care Ra Zamorano MD Aug 17, 2017 10:14
--- NOTE | 2017-08-17 11:27 | HHI.PR ---
Subjective Remarks Follow-up herpes zoster and constipation. Patient seen and examined. Patient states she feels well. Reports her rash is nearly resolved. She denies any new medical complaints. Denies any fever or chills. Denies any chest pain or dyspnea. She is moving her bowels. Objective Vitals Vital Signs Date Time Temp Pulse Resp B/P (MAP) Pulse Ox O2 Delivery O2 Flow Rate FiO2 08/17/17 05:33 97.9 60 16 134/62 (86) 93 08/16/17 18:05 97.4 63 16 122/65 (84) 98 I/O 08/16/17 08/16/17 08/16/17 08/17/17 08/17/17 08/17/17 07:00 15:00 23:00 07:00 15:00 23:00 Intake Total 240 ml 1080 ml 2400 ml 240 ml 480 ml Balance 240 ml 1080 ml 2400 ml 240 ml 480 ml Intake Oral 240 ml 1080 ml 2400 ml 240 ml 480 ml # Voids 1 2 2 Objective Remarks GENERAL: This is a well-nourished, well-developed elderly female patient, in no apparent distress. Awake and alert. SKIN: No ecchymoses. Cool and dry. Right lower back with resolution of shingles rash except for faint area of erythema noted, no lesions. HEAD: Normocephalic. Atraumatic. EYES: Pupils equal round. No scleral icterus. No injection or drainage. ENT: Nose without bleeding or purulent drainage. Airway patent. MMM. NECK: Trachea midline. No JVD. CARDIOVASCULAR: Regular rate and rhythm without murmurs, gallops, or rubs. RESPIRATORY: Clear to auscultation. Breath sounds equal bilaterally. No wheezes , rales, or rhonchi. GASTROINTESTINAL: Abdomen soft, non-tender, nondistended. No guarding. MUSCULOSKELETAL: Extremities without clubbing, cyanosis, or edema. NEUROLOGICAL: Awake and alert. Motor and sensory grossly within normal limits. Normal speech. Medications and IVs Current Medications Medications (Trade) Dose Ordered Sig/Esvin Route Start Time Stop Time Status Last Admin (Tylenol) 650 mg Q4H PRN PO 08/11/17 14:15 (Milk Of Magnesia Liq) 30 ml DAILY PRN PO 08/11/17 14:15 08/15/17 06:31 (Mag-Al Plus Susp Liq) 30 ml Q6H PRN PO 08/11/17 14:15 (LaMICtal) 50 mg BID PO 08/12/17 13:15 08/16/17 20:00 (Atarax) 50 mg Q6H PRN PO 08/12/17 13:15 08/17/17 03:54 (Tylenol-Codeine #3) 1 tab Q12HR PRN PO 08/12/17 17:30 08/16/17 20:00 (Valtrex) 1,000 mg Q8HR PO 08/12/17 22:00 08/19/17 21:59 08/17/17 05:58 (Pill Splitter) 1 ea UNSCH PRN OTHER 08/14/17 13:45 (Neurontin) 200 mg TID PO 08/14/17 18:00 08/16/17 18:00 (Miralax) 17 gm DAILY PO 08/14/17 15:00 08/16/17 08:14 (Vitamin D3) 1,000 units DAILY PO 08/17/17 09:00 (Latuda) 40 mg DAILY PO 08/18/17 09:00 (Ambien) 5 mg HS PO 08/17/17 21:00 A/P Assessment and Plan 62-year-old female with past medical history significant for shingles, depression, bipolar disorder, ovarian cyst, appendectomy, and who presented to [facility] on 08/10 with complaints of increase depression and suicidal thoughts. Patient was Holliday acted, medically cleared and subsequently transferred to [place] inpatient psychiatry. [facility] has been consulted due to shingles outbreak. Depression SI -Management per psychiatric team Herpes zoster, near resolution, no lesions -continue Valtrex 1 g 7 days -encouraged to keep open to air as erythema surrounding this is likely due to dressing adhesive, much improved -continue gabapentin 200mg TID -patient cleared from hospitalist standpoint for discharge Left ovarian mass -Patient reports left ovarian mass with plans to surgically remove in the near future once approved by her insurance. -Tylenol with Codeine #3 PRN for pain (nurse has called patient's pharmacy and this medication was recently filled not too long ago.) -Monitor for oversedation Constipation -Likely secondary to Tylenol with Codeine -(+)BM, continue MiraLAX Vitamin D deficiency -Vitamin D replacement daily -patient will need to have level rechecked by PCP in 2-3 mos Dyslipidemia -LFTS WNL -lengthy discussion with patient regarding cholesterol management. She would like to try lifestyle modification at this time which I feel is reasonable. Recommended dietary changes, [place] fish oil daily and regular exercise program. Patient to follow up with her PCP in 2-3 mos and have lipid profile redrawn. Tobacco and alcohol abuse -Counseled on importance to quit -Monitor of possible DT's DVT prophylaxis-ambulation Patient cleared for discharge from hospitalist standpoint. [facility] will sign off. Please reconsult if needed. Kiley Rodriguez Aug 17, 2017 11:27
[2017-08-17] MEDS ORDERED: GABA100C4 PO (11:29)
[2017-08-17 18:00] VITALS: BP 108/59; PULSE 62; RESP 16; TEMP 98; O2SAT 98
[2017-08-17] MEDS: ZOLPIDEM TARTRATE 5 MG TAB PO SCH (20:41)
[2017-08-18] MEDS: valACYclovir HCL 500 MG TAB PO SCH ×3 (05:00→20:45)
[2017-08-18 06:00] VITALS: BP 112/54; PULSE 57; RESP 18; TEMP 97.5; O2SAT 98
[2017-08-18] MEDS: GABAPENTIN 100 MG CAP PO SCH ×3 (09:45→20:44)
[2017-08-18] MEDS: LURASIDONE 40 MG TAB PO SCH (09:45)
[2017-08-18] MEDS: CHOLECALCIFEROL (VIT D3) 1000 UNIT TAB PO SCH (09:45)
[2017-08-18] MEDS: lamoTRIgine 25 MG TAB PO SCH ×2 (09:45→20:45)
[2017-08-18] MEDS: POLYETHYLENE GLYCOL 17 GM PKG PO SCH (09:45)
[2017-08-18] MEDS: MAGNESIUM HYDROXIDE SUSP 30 ML CUP PO PRN (11:46)
[2017-08-18] MEDS: ACETAMINOPHEN/CODEINE 300 MG/30 MG TAB PO PRN ×2 (11:46→12:46)
--- NOTE | 2017-08-18 16:59 | HHI.PYPN ---
Subjective Remarks Patient seen for follow up; chart reviewed. Discussion with nursing staff reported that the patient slept better last night. Patient found sitting on chair, calm and cooperative. She states that she slept better last night, did wake up feeling depressed but states was able to redirect herself in to thinking more positive. She denies having any suicidal ideations today and feels support by her sons whom she may be moving up to live with. She [place] providers. Review of Systems Except as stated in HPI: all other systems reviewed are Neg Mental Status Examination Appearance: Appropriate Consciousness: Alert Orientation: x4 Motor Activity: Normal gait Speech: Unremarkable Language: Adequate Fund of Knowledge: Adequate Attention and Concentration: Easily Distracted Memory: Unremarkable Mood: Appropriate Affect: Appropriate Thought Process & Associations: Intact, Logical, Goal directed Thought Content: Appropriate Hallucination Type: None Delusion Type: None Suicidal Ideation: Yes (Intermittent and decreasing) Suicidal Plan: No Suicidal Intention: No Homicidal Ideation: No Homicidal Plan: No Homicidal Intention: No Insight: Fair Judgment: Impulsive Results Vitals/IOs Vital Signs Date Time Temp Pulse Resp B/P (MAP) Pulse Ox O2 Delivery O2 Flow Rate FiO2 08/18/17 06:00 97.5 57 18 112/54 (73) 98 Intake and Output 08/18/17 08/18/17 08/19/17 08:00 16:00 00:00 Intake Total 600 ml Balance 600 ml Assessment & Plan Problem List: (1) Bipolar disorder, most recent episode depressed ICD Codes: F31.30 - Bipolar disorder, current episode depressed, mild or moderate severity, unspecified Status: Acute Assessment & Plan Patient at this time continues with depressed mood but decreasing in intensity, less intermittent suicidal ideations and more hopeful today. Continue current treatment, continue to monitor mood and behavior. Discharge planning in progress. Justification for Cont. Inpt. At risk for further decompensation if at lower level of care. Ra Zamorano MD Aug 18, 2017 16:59
[2017-08-18 18:15] VITALS: BP 129/79; PULSE 62; RESP 16; TEMP 98; O2SAT 100
[2017-08-18] MEDS: ZOLPIDEM TARTRATE 5 MG TAB PO SCH (20:45)
[2017-08-19] MEDS: valACYclovir HCL 500 MG TAB PO SCH ×2 (05:56→13:28)
[2017-08-19 06:00] VITALS: BP 114/67; PULSE 73; RESP 18; TEMP 97.9; O2SAT 97
[2017-08-19] MEDS ORDERED: CHOL1000 PO (09:27)
[2017-08-19] MEDS ORDERED: AMBI5TAB PO (09:27)
[2017-08-19] MEDS ORDERED: LURA40 PO ×3 (09:27→10:43)
[2017-08-19] MEDS ORDERED: LAMO25 PO (09:27)
[2017-08-19] MEDS ORDERED: POLY17S PO (09:27)
[2017-08-19] MEDS: GABAPENTIN 100 MG CAP PO SCH ×2 (09:32→13:26)
[2017-08-19] MEDS: LURASIDONE 40 MG TAB PO SCH (09:32)
[2017-08-19] MEDS: CHOLECALCIFEROL (VIT D3) 1000 UNIT TAB PO SCH (09:33)
[2017-08-19] MEDS: lamoTRIgine 25 MG TAB PO SCH (09:33)
[2017-08-19] MEDS: POLYETHYLENE GLYCOL 17 GM PKG PO SCH (09:33)
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
[2017-08-19] MEDS: ACETAMINOPHEN/CODEINE 300 MG/30 MG TAB PO PRN (13:27)
== END 2017-08-19 13:30 | disposition home or self-care (01) | DRG 885 ==
LOC: NEPJ 18:29 → NEDA 08-11 14:15 → H260 08-11 15:37 → H4EA 08-13 08:04
PROVIDERS: ADMIT Student in an Organized Health Care Education/Training Program; ATTEND Student in an Organized Health Care Education/Training Program
DX: F31.30 Bipolar disorder, current episode depressed, mild or moderate severity, unspecified (principal); B02.9 Zoster without complications; Z81.8 Family history of other mental and behavioral disorders; Z86.19 Personal history of other infectious and parasitic diseases; K59.00 Constipation, unspecified; F10.10 Alcohol abuse, uncomplicated; Z72.0 Tobacco use; N83.9 Noninflammatory disorder of ovary, fallopian tube and broad ligament, unspecified; E55.9 Vitamin D deficiency, unspecified; E78.5 Hyperlipidemia, unspecified
CPT/HCPCS: 80048; 80061; 80076; 82306; 82607; 83036; 99285